=== PATIENT | female | born 2000 | race Caucasian/White ===

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

== ENCOUNTER → 2020-05-04 | Outpatient (CLI) | payer BC ==
--- NOTE | 2020-05-06 23:30 | ECWPNPC ---
PATIENT NAME: ALDO WILSON : 2000 GENDER: FEMALE VISIT DATE: 05/04/2020 DISCHARGE DATE: 05/04/20922 VISIT LOCKED DATE TIME: PHYSICIAN: URMILA SALAZAR RESOURCE: URMILA SALAZAR REASON FOR APPOINTMENT 1. BACK PAIN HISTORY OF PRESENT ILLNESS DEPRESSION SCREENING: PHQ-2 (2015 EDITION) LITTLE INTEREST OR PLEASURE IN DOING THINGS?NOT AT ALL FEELING DOWN, DEPRESSED, OR HOPELESS?NOT AT ALL TOTAL SCORE0 GENERAL: 20-YEAR-OLD FEMALE REFERRED BY [facility], DR. REY, FOR EVALUATION OF CHRONIC LOW BACK PAIN. STATES THIS BEGAN WITHOUT PRECIPITATING EVENT IN 11TH GRADE APPROXIMATELY 4 YEARS AGO. STATES SHE BENT OVER TO TIE HER SHOES AND SHE COULD NOT STRAIGHTEN BACK UP. X-RAY IMAGING DONE AT THAT TIME SHOWED SPONDYLOLISTHESIS AT L5-S1 LEVEL. SHE WAS SENT TO THERAPY AND REFERRED TO NEUROSURGERY. STATES THEY TRIED A FEW INJECTIONS 4 YEARS AGO WITHOUT IMPROVEMENT. PAIN IS DESCRIBED CONSTANT AND ACHING. PAIN IS AGGRAVATED BY FLEXING THE SPINE OR PROLONGED WALKING. DENIES BOWEL OR BLADDER INCONTINENCE. NO RECENT ILLNESS OR SUDDEN WEIGHT LOSS. - - -. FALL RISK SCREENING: SCREENING :NO FALLS REPORTED IN THE LAST YEAR PAIN SCREENING: PATIENT HAS A COMPLAINT OF ACUTE OR CHRONIC PAIN :YES LOCATION OF PAIN:LOW BACK, LEFT HIP, RIGHT HIP INTENSITY OF PAIN (SCALE OF 1 TO 10):6 WHAT DOES YOUR PAIN FEEL LIKE:SHARP, STABBING DURATION:CONTINOUS, CONSTANT PAIN IS INCREASED BY:ACTIVITIES PAIN IS DECREASED BY:OTHERS NOTHING TREATMENT/MEDICATIONS USED TO MANAGE PAIN:OTC PAIN RELIEVERS LEVEL OF RELIEF FROM PAIN TREATMENTS IN THE PAST:0% PAIN HAS INTERFERED WITH THE FOLLOWING: NO NURSING NOTE: - - -. PAIN CENTER INTAKE QUESTIONS: DO YOU HAVE A HISTORY OF MRSA? :NO DO YOU TAKE A BLOOD THINNERS? :NO DO YOU HAVE ANY BLEEDING DISORDERS? :NO ANY NEW NUMBNESS OR WEAKNESS IN YOUR LEGS OR ARMS? :NO ANY PACEMAKER,DEFIBRILLATOR, OR DORSAL COLUMN STIMULATOR? :NO DO YOU HAVE ANY RASHES OR OPEN SORES? :NO ARE YOU ALLERGIC TO IV DYE? :NO ARE YOU DIABETIC? :NO ANY NEW PROBLEMS WITH YOUR MEDICATIONS? :NO HAVE YOU RECEIVED A VACCINE IN THE PAST 30 DAYS? :NO DO YOU PLAN TO RECEIVE A VACCINE IN THE NEXT 21 DAYS? :NO DO YOU NEED ANY PRESCRIPTION? :NO DO YOU TAKE ANY IMMUNOSUPPRESSIVE MEDICATIONS? :NO CURRENT MEDICATIONS TAKING CONCERTA 54 MG TABLET EXTENDED RELEASE 1 TABLET IN THE MORNING ORALLY ONCE A DAY TAKING EPINEPHRINE HCL (ANAPHYLAXIS) MEDICATION LIST REVIEWED AND RECONCILED WITH THE PATIENT PAST MEDICAL HISTORY ADHD ALLERGIES SULFA (FOR ALLERGY USE ONLY): HIVES - ALLERGY PENICILLIN (FOR ALLERGIES USE ONLY): HIVES - ALLERGY BEES: ANAPHYLAXIS - ALLERGY SURGICAL HISTORY WISDOM TEETH PULLED FAMILY HISTORY FATHER: ALIVE MOTHER: ALIVE 1 BROTHER(S) . SOCIAL HISTORY GENERAL: TOBACCO USE ARE YOU A:NONSMOKER LATEX QUESTIONNAIRE LATEX ALLERGY : HAVE YOU EVER DEVELOPED ANY TYPE OF REACTION DURING OR AFTER DENTAL APPOINTMENT, VAGINAL/RECTAL EXAMINATION, SURGICAL PROCEDURE, OR ANY OTHER EXPOSURE?NO LATEX RISK : HAVE YOU EVER HAD ANY DIFFICULTY BREATHING OR HIVES AFTER EATING OR HANDLING ANY FRUITS, OR VEGETABLES; SUCH KIWI, BANANAS, STONE FRUITS, OR CHESTNUTSNO LATEX RISK : DO YOU HAVE A PREVIOUS PERSONAL HISTORY OF MORE THAN NINE SURGERIES, SPINA BIFIDA, OR REPEATED CATHERIZATIONS? NO LATEX RISK : ARE YOU FREQUENTLY EXPOSED TO LATEX PRODUCTS IN YOUR OCCUPATION?NO DATE ASKED : 05/04/2020 ALCOHOL SCREENING DID YOU HAVE A DRINK CONTAINING ALCOHOL IN THE PAST YEAR?YES HOW OFTEN DID YOU HAVE A DRINK CONTAINING ALCOHOL IN THE PAST YEAR?MONTHLY OR LESS (1 POINT) HOW MANY DRINKS DID YOU HAVE ON A TYPICAL DAY WHEN YOU WERE DRINKING IN THE PAST YEAR?1 OR 2 (0 POINTS) HOW OFTEN DID YOU HAVE SIX OR MORE DRINKS ON ONE OCCASION IN THE PAST YEAR?NEVER (0 POINTS) POINTS1 INTERPRETATIONNEGATIVE RECREATIONAL DRUG USE DRUG USE?NO LANGUAGE LANGUAGES SPOKEN:MONGOLIAN LEARNING BARRIERS / SPECIAL NEEDS BARRIERS TO LEARNING?NO HEARING IMPAIRED?NO VISION IMPAIRED?NO COGNITIVELY IMPAIRED?NO READINESS TO LEARN?YES LEARNING PREFERENCES?NO LEARNING CAPABILITIES PRESENT?YES EMOTIONAL BARRIERS?NO SPECIAL DEVICES?NO DOMESTIC VIOLENCE DO YOU FEEL SAFE IN YOUR ENVIRONMENT?YES PAIN CLINIC PFS, CLERGY, PUBLIC HEALTH REFERRALS HAS THE PATIENT BEEN EDUCATED REGARDING HIS/HER PLAN OF CARE?YES HAS THE PATIENT BEEN EDUCATED REGARDING PAIN, THE RISK FOR PAIN, THE IMPORTANCE OF EFFECTIVE PAIN MANAGEMENT, AND THE PAIN ASSESSMENT PROCESS?YES ADVANCE DIRECTIVE ADVANCE DIRECTIVE DISCUSSED WITH PATIENT:YES NO, DECLINED HOSPITALIZATION/MAJOR DIAGNOSTIC PROCEDURE NO HOSPITALIZATION HISTORY. REVIEW OF SYSTEMS CONSTITUTIONAL: ANY RECENT FEVER NO . CHILLS NO . WEIGHT CHANGE OF UNKNOWN REASONS NO . GASTROENTEROLOGY: NEW UNEXPLAINABLE CHANGES IN BOWEL CONTROL NO . CONSTIPATION NO . GENITOURINARY: ANY NEW CHANGE IN BLADDER CONTROL? NO . NEUROLOGY: NEW ONSET DIZZINESS OR NEUROLOGICAL CHANGES NOT MENTIONED NO . NEW NUMBNESS OR PAIN PATTERNS NOT MENTIONED AND PERTINENT TO TODAY'S VISIT NO . CARDIOLOGY: NEW CHEST PRESSURE NO . NEW CHEST PAIN NO . RESPIRATORY: UNEXPLAINABLE COUGH NO . NEW SHORTNESS OF BREATH NO . VITAL SIGNS WT 200.2 LBS, HT 65 IN, BMI 33.31 INDEX, BP 120/57 MM HG, HR 73 /MIN, RR 16 /MIN, TEMP 96.4 F, OXYGEN SAT % 99%, SAFE IN ENV? (Y/N) Y, NA INITIALS SD 08:34, REVIEWED BY: JORGE. EXAMINATION GENERAL EXAMINATION: GENERALNO ACUTE DISTRESS, WELL NOURISHED AND HYDRATED. PSYCHAPPROPRIATE MOOD AND AFFECT . FACE:UNREMARKABLE. NECK:NO LYMPHADENOPATHY, SUPPLE, . LUNGS:CLEAR TO AUSCULTATION BILATERALLY, NO WHEEZES, RHONCHI, RALES. HEART:NO MURMURS, REGULAR RATE AND RHYTHM. MUSCULOSKELETAL:NORMAL RANGE OF MOTION. REPORTS INCREASED PAIN WITH EXTENSION OF SPINE.. 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 IT IS NOT A COPY OF THE [employer] PROGRESS NOTE. MTDD
== END ==
LOC: M PAIN 08:30
PROVIDERS: ATTEND Nurse Practitioner Family
DX: M43.17 Spondylolisthesis, lumbosacral region (principal); G89.29 Other chronic pain; F90.9 Attention-deficit hyperactivity disorder, unspecified type; Z88.0 Allergy status to penicillin; Z88.2 Allergy status to sulfonamides; Z91.030 Bee allergy status; Z79.899 Other long term (current) drug therapy

== ENCOUNTER 2021-04-23 11:39 | Emergency (ER) | payer BC ==
[~2021-04-23] VITALS: Ht 165.1 cm; Wt 96.2 kg
--- OUTSIDE RECORDS SUMMARY | 2021-04-23 11:49 | CCD ---
Author Author [facility] Organization [facility] Address Unknown Phone Unavailable Care Team Providers Care Tube Turner Name Role Phone MARC COBB MD Unavailable Unavailable MARC COBB MD Unavailable Unavailable MARC COBB MD Unavailable Unavailable MARC COBB MD Unavailable Unavailable MARC COBB MD Unavailable Unavailable MARC COBB MD Unavailable Unavailable MARC COBB MD Unavailable Unavailable MARC COBB MD Unavailable Unavailable MARC COBB MD Unavailable Unavailable MARC COBB MD Unavailable Unavailable MARC COBB MD Unavailable Unavailable MARC COBB MD Unavailable Unavailable MARC COBB MD Unavailable Unavailable MARC COBB MD Unavailable Unavailable MARC COBB MD Unavailable Unavailable MARC COBB MD Unavailable Unavailable MARC COBB MD Unavailable Unavailable MARC COBB MD Unavailable Unavailable MARC COBB MD Unavailable Unavailable MARC COBB MD Unavailable Unavailable MARC COBB MD Unavailable Unavailable MARC COBB MD Unavailable Unavailable MARC COBB MD Unavailable Unavailable MARC COBB MD Unavailable Unavailable MARC COBB MD Unavailable Unavailable MARC COBB MD Unavailable Unavailable MARC COBB MD Unavailable Unavailable CHROSTOWSKI, MARC MD Unavailable Unavailable CHROSTOWSKI, MARC MD Unavailable Unavailable CHROSTOWSKIPAULIEZ MD Unavailable Unavailable CHROSTOWSKI, MARC MD Unavailable Unavailable CHROSTOWSKI, MARC MD Unavailable Unavailable CHROSTOWSKI, MARC MD Unavailable Unavailable CHROSTOWSKI, MARC MD Unavailable Unavailable CHROSTOWSKI, MARC MD Unavailable Unavailable CHROSTOWSKI, MARC MD Unavailable Unavailable CHROSTOWSKI, MARC MD Unavailable Unavailable CHROSTOWSKI, MARC MD Unavailable Unavailable CHROSTOWSKI, MARC MD Unavailable Unavailable Stuck, K Adry PA Unavailable Unavailable Stuck, K Adry PA Unavailable Unavailable Stuck, K Adry PA Unavailable Unavailable Stuck, K Adry PA Unavailable Unavailable Stuck, K Adry PA Unavailable Unavailable Stuck, K Adry PA Unavailable Unavailable Stuck, K Adry PA Unavailable Unavailable Stuck, K Adry PA Unavailable Unavailable Stuck, K Adry PA Unavailable Unavailable Stuck, K Adry PA Unavailable Unavailable Stuck, K Adry PA Unavailable Unavailable Stuck, K Adry PA Unavailable Unavailable Stuck, K Adry PA Unavailable Unavailable Stuck, K Adry PA Unavailable Unavailable Stuck, K Adry PA Unavailable Unavailable Stuck, K Adry PA Unavailable Unavailable Stuck, K Adry PA Unavailable Unavailable Stuck, K Adry PA Unavailable Unavailable Stuck, K Adry PA Unavailable Unavailable Stuck, K Adry PA Unavailable Unavailable Stuck, K Adry PA Unavailable Unavailable Stuck, K Adry PA Unavailable Unavailable Stuck, K Adry PA Unavailable Unavailable Stuck, K Adry PA Unavailable Unavailable Stuck, K Adry PA Unavailable Unavailable Stuck, K Adry PA Unavailable Unavailable Stuck, K Adry PA Unavailable Unavailable Stuck, K Adry PA Unavailable Unavailable Stuck, K Adry PA Unavailable Unavailable Stuck, K Adry PA Unavailable Unavailable Stuck, K Adry PA Unavailable Unavailable Stuck, K Adry PA Unavailable Unavailable Stuck, K Adry PA Unavailable Unavailable Stuck, K Adry PA Unavailable Unavailable Stuck, K Adry PA Unavailable Unavailable Stuck, K Adry PA Unavailable Unavailable Stuck, K Adry PA Unavailable Unavailable Stuck, K Adry PA Unavailable Unavailable Stuck, K Adry PA Unavailable Unavailable Stuck, K Adry PA Unavailable Unavailable Stuck, K Adry PA Unavailable Unavailable Stuck, K Adry PA Unavailable Unavailable Sandor SAGE MICROELECTRONICS TECHNICIAN Unavailable Unavailable LAROCK, J CHIQUITA MICROELECTRONICS TECHNICIAN Unavailable Unavailable LAROCK, J CHIQUITA MICROELECTRONICS TECHNICIAN Unavailable Unavailable LAROCK, J CHIQUITA MICROELECTRONICS TECHNICIAN Unavailable Unavailable LAROCK, J CHIQUITA MICROELECTRONICS TECHNICIAN Unavailable Unavailable LAROCK, J CHIQUITA MICROELECTRONICS TECHNICIAN Unavailable Unavailable LAROCK, J CHIQUITA MICROELECTRONICS TECHNICIAN Unavailable Unavailable LAROCK, J CHIQUITA MICROELECTRONICS TECHNICIAN Unavailable Unavailable LAROCK, J CHIQUITA MICROELECTRONICS TECHNICIAN Unavailable Unavailable LAROCK, J CHIQUITA MICROELECTRONICS TECHNICIAN Unavailable Unavailable LAROCK, J CHIQUITA MICROELECTRONICS TECHNICIAN Unavailable Unavailable LAROCK, J CHIQUITA MICROELECTRONICS TECHNICIAN Unavailable Unavailable LAROCK, J CHIQUITA MICROELECTRONICS TECHNICIAN Unavailable Unavailable LAROCK, J CHIQUITA MICROELECTRONICS TECHNICIAN Unavailable Unavailable LAROCK, J CHIQUITA MICROELECTRONICS TECHNICIAN Unavailable Unavailable LAROCK, J CHIQUITA MICROELECTRONICS TECHNICIAN Unavailable Unavailable LAROCK, J CHIQUITA MICROELECTRONICS TECHNICIAN Unavailable Unavailable LAROCK, J CHIQUITA MICROELECTRONICS TECHNICIAN Unavailable Unavailable LAROCK, J CHIQUITA MICROELECTRONICS TECHNICIAN Unavailable Unavailable LAROCK, J CHIQUITA MICROELECTRONICS TECHNICIAN Unavailable Unavailable LAROCK, J CHIQUITA MICROELECTRONICS TECHNICIAN Unavailable Unavailable LAROCK, J CHIQUITA MICROELECTRONICS TECHNICIAN Unavailable Unavailable Maria C Germán Torrez, L RECONDITIONING ASSOCIATE-C RECONDITIONING ASSOCIATE Unavailable Unavailable Maria C L Lore, L RECONDITIONING ASSOCIATE-C RECONDITIONING ASSOCIATE Unavailable Unavailable DASHA, A EDDIE PA Unavailable Unavailable DASHA, A EDDIE PA Unavailable Unavailable DASHA, A EDDIE PA Unavailable Unavailable DASHA, A EDDIE PA Unavailable Unavailable DASHA, A EDDIE PA Unavailable Unavailable DASHA, A EDDIE PA Unavailable Unavailable DASHA, A EDDIE PA Unavailable Unavailable DASHA, A EDDIE PA Unavailable Unavailable DASHA, A EDDIE PA Unavailable Unavailable DASHA, A EDDIE PA Unavailable Unavailable DASHA, A EDDIE PA Unavailable Unavailable DASHA, A EDDIE PA Unavailable Unavailable DASHA, A EDDIE PA Unavailable Unavailable Pugh, M Cirilo PA Unavailable Unavailable Pugh, M Cirilo PA Unavailable Unavailable Pugh, M Cirilo PA Unavailable Unavailable Pugh, M Cirilo PA Unavailable Unavailable Pugh, M Cirilo PA Unavailable Unavailable Pugh, M Cirilo PA Unavailable Unavailable Pugh, M Cirilo PA Unavailable Unavailable Pugh, M Cirilo PA Unavailable Unavailable Pugh, M Cirilo PA Unavailable Unavailable Pugh, M Cirilo PA Unavailable Unavailable Pugh, M Cirilo PA Unavailable Unavailable Pugh, M Cirilo PA Unavailable Unavailable Pugh, M Cirilo PA Unavailable Unavailable Pugh, M Cirilo PA Unavailable Unavailable Pugh, M Cirilo PA Unavailable Unavailable Pugh, M Cirilo PA Unavailable Unavailable Pugh, M Cirilo PA Unavailable Unavailable Pugh, M Cirilo PA Unavailable Unavailable Pugh, M Cirilo PA Unavailable Unavailable Pugh, M Cirilo PA Unavailable Unavailable Pugh, M Cirilo PA Unavailable Unavailable Pugh, M Cirilo PA Unavailable Unavailable Pugh, M Cirilo PA Unavailable Unavailable Pugh, M Cirilo PA Unavailable Unavailable Pugh, M Cirilo PA Unavailable Unavailable Pugh, M Cirilo PA Unavailable Unavailable Pugh, M Cirilo PA Unavailable Unavailable Pugh, M Cirilo PA Unavailable Unavailable Pugh, M Cirilo PA Unavailable Unavailable Pugh, M Cirilo PA Unavailable Unavailable Pugh, M Cirilo PA Unavailable Unavailable Pugh, M Cirilo PA Unavailable Unavailable Pugh, M Cirilo PA Unavailable Unavailable Pugh, M Cirilo PA Unavailable Unavailable Pugh, M Cirilo PA Unavailable Unavailable Pugh, M Cirilo PA Unavailable Unavailable Pugh, M Cirilo PA Unavailable Unavailable Pugh, M Cirilo PA Unavailable Unavailable Pugh, M Cirilo PA Unavailable Unavailable Pugh, M Cirilo PA Unavailable Unavailable Pugh, M Cirilo PA Unavailable Unavailable Pugh, M Cirilo PA Unavailable Unavailable Pugh, M Cirilo PA Unavailable Unavailable Pugh, M Cirilo PA Unavailable Unavailable Pugh, M Cirilo PA Unavailable Unavailable Pugh, M Cirilo PA Unavailable Unavailable Pugh, M Cirilo PA Unavailable Unavailable Pugh, M Cirilo PA Unavailable Unavailable Pugh, M Cirilo PA Unavailable Unavailable EDDIE CRAWFORD Unavailable Unavailable Luis Morley, F RECONDITIONING ASSOCIATE RECONDITIONING ASSOCIATE Unavailable Unavailable Luis Morley F RECONDITIONING ASSOCIATE RECONDITIONING ASSOCIATE Unavailable Unavailable Germán Pugh MD Unavailable Unavailable Germán Pugh MD Unavailable Unavailable Germán Pugh MD Unavailable Unavailable Germán Pugh MD Unavailable Unavailable Germán Pugh MD Unavailable Unavailable Germán Pugh MD Unavailable Unavailable Germán Pugh MD Unavailable Unavailable Germán Pugh MD Unavailable Unavailable Germán Pugh MD Unavailable Unavailable Germán Pugh MD Unavailable Unavailable Germán Pugh MD Unavailable Unavailable Rabbia, C Flor Unavailable Unavailable Rabbia, C Flor Unavailable Unavailable Rabbia, C Flor Unavailable Unavailable SWINWOOD, MARIA C MICROELECTRONICS TECHNICIAN Unavailable Unavailable SWINWOOD, MARIA C MICROELECTRONICS TECHNICIAN Unavailable Unavailable SWINWOOD, MARIA C MICROELECTRONICS TECHNICIAN Unavailable Unavailable SWINWOOD, MARIA C MICROELECTRONICS TECHNICIAN Unavailable Unavailable SWINWOOD, MARIA C MICROELECTRONICS TECHNICIAN Unavailable Unavailable SWINWOOD, MARIA C MICROELECTRONICS TECHNICIAN Unavailable Unavailable SWINWOOD, MARIA C MICROELECTRONICS TECHNICIAN Unavailable Unavailable SWINWOOD, MARIA C MICROELECTRONICS TECHNICIAN Unavailable Unavailable SWINWOOD, MARIA C MICROELECTRONICS TECHNICIAN Unavailable Unavailable SWINWOOD, MARIA C MICROELECTRONICS TECHNICIAN Unavailable Unavailable SWINWOOD, MARIA C MICROELECTRONICS TECHNICIAN Unavailable Unavailable SWINWOOD, MARIA C MICROELECTRONICS TECHNICIAN Unavailable Unavailable SWINWOOD, MARIA C MICROELECTRONICS TECHNICIAN Unavailable Unavailable SWINWOOD, MARIA C MICROELECTRONICS TECHNICIAN Unavailable Unavailable SWINWOOD, MARIA C MICROELECTRONICS TECHNICIAN Unavailable Unavailable SWINWOOD, MARIA C MICROELECTRONICS TECHNICIAN Unavailable Unavailable SWINWOOD, MARIA C MICROELECTRONICS TECHNICIAN Unavailable Unavailable SWINWOOD, MARIA C MICROELECTRONICS TECHNICIAN Unavailable Unavailable SWINWOOD, MARIA C MICROELECTRONICS TECHNICIAN Unavailable Unavailable SWINWOOD, MARIA C MICROELECTRONICS TECHNICIAN Unavailable Unavailable SWINWOOD, MARIA C MICROELECTRONICS TECHNICIAN Unavailable Unavailable MARAVEGIAS, N PAYAL NEWMAN Unavailable Unavailable MARAVEGIAS, N PAYAL NEWMAN Unavailable Unavailable MARAVEGIAS, Con MOE MD Unavailable Unavailable MARAVEGIAS, Con MOE MD Unavailable Unavailable MARAVEGIAS, N PAYAL NEWMAN Unavailable Unavailable MARAVEGIAS, N PAYAL NEWMAN Unavailable Unavailable MARAVEGIAS, N PAYAL NEWMAN Unavailable Unavailable MARAVEGIAS, N PAYAL NEWMAN Unavailable Unavailable MARAVEGIAS, N PAYAL NEWMAN Unavailable Unavailable MARAVEGIAS, N PAYAL NEWMAN Unavailable Unavailable MARAVEGIAS, N PAYAL NEWMAN Unavailable Unavailable MARAVEGIAS, N PAYAL NEWMAN Unavailable Unavailable MARAVEGIAS, Con MOE MD Unavailable Unavailable MARAVEGIAS, Con MOE MD Unavailable Unavailable Fish, B Sandeep NEWMAN Unavailable Unavailable Fish, B Sandeep NEWMAN Unavailable Unavailable Fish, B Sandeep NEWMAN Unavailable Unavailable Fish, B Sandeep NEWMAN Unavailable Unavailable Fish, B Sandeep NEWMAN Unavailable Unavailable Fish, B Sandeep NEWMAN Unavailable Unavailable Fish, B Sandeep NEWMAN Unavailable Unavailable Fish, B Sandeep NEWMAN Unavailable Unavailable Fish, B Sandeep NEWMAN Unavailable Unavailable Fish, B Sandeep NEWMAN Unavailable Unavailable Fish, B Sandeep NEWMNA Unavailable Unavailable Fish, B Sandeep NEWMAN Unavailable Unavailable Fish, B Sandeep NEWMAN Unavailable Unavailable Fish, B Sandeep NEWMAN Unavailable Unavailable Fish, B Sandeep NEWMAN Unavailable Unavailable Fish, B Sandeep NEWMAN Unavailable Unavailable Fish, B Sandeep NEWMAN Unavailable Unavailable Fish, B Sandeep NEWMAN Unavailable Unavailable Fish, B Sandeep NEWMAN Unavailable Unavailable Fish, B Sandeep NEWMAN Unavailable Unavailable Fish, B Sandeep NEWMAN Unavailable Unavailable Fish, B Sandeep NEWMAN Unavailable Unavailable Fish, B Sandeep NEWMAN Unavailable Unavailable Fish, B Sandeep NEWMAN Unavailable Unavailable Fish, B Sandeep NEWMAN Unavailable Unavailable Fish, B Sandeep NEWMAN Unavailable Unavailable Fish, B Sandeep NEWMAN Unavailable Unavailable Fish, B Sandeep NEWMAN Unavailable Unavailable Fish, B Sandeep NEWMAN Unavailable Unavailable Fish, B Sandeep NEWMAN Unavailable Unavailable Fish, B Sandeep NEWMAN Unavailable Unavailable Fish, B Sandeep NEWMAN Unavailable Unavailable Fish, B Sandeep NEWMAN Unavailable Unavailable Fish, B Sandeep NEWMAN Unavailable Unavailable Fish, B Sandeep NEWMAN Unavailable Unavailable Fish, B Sandeep NEWMAN Unavailable Unavailable Fish, B Sandeep NEWMAN Unavailable Unavailable Fish, B Sandeep NEWMAN Unavailable Unavailable Fish, B Sandeep NEWMAN Unavailable Unavailable Fish, Mumtaz Hopkins MD Unavailable Unavailable Fish, Mumtaz Hopkins MD Unavailable Unavailable Fish, Mumtaz Hopkins MD Unavailable Unavailable Fish, Mumtaz Hopkins MD Unavailable Unavailable Fish, Mumtaz Hopkins MD Unavailable Unavailable Fish, Mumtaz Hopkins MD Unavailable Unavailable Fish, Mumtaz Hopkins MD Unavailable Unavailable Fish, Mumtaz Hopkins MD Unavailable Unavailable Fish, Mumtaz Hopkins MD Unavailable Unavailable Fish, Mumtaz Hopkins MD Unavailable Unavailable Fish, Mumtaz Hopkins MD Unavailable Unavailable Fish, Mumtaz Hopkins MD Unavailable Unavailable Fish, Mumtaz Hopkins MD Unavailable Unavailable Fish, Mumtaz Hopkins MD Unavailable Unavailable Fish, Mumtaz Hopkins MD Unavailable Unavailable Fish, Mumtaz Hopkins MD Unavailable Unavailable Fish, Mumtaz Hopkins MD Unavailable Unavailable GALGANO, EDDIE NEWMAN Unavailable Unavailable GALGANO, EDDIE NEWMAN Unavailable Unavailable GALGANO, EDDIE NEWMAN Unavailable Unavailable GALGANO, EDDIE NEWMAN Unavailable Unavailable GALGANO, EDDIE NEWMAN Unavailable Unavailable GALGANO, EDDIE NEWMAN Unavailable Unavailable GALGANO, EDDIE NEWMAN Unavailable Unavailable GALGANO, EDDIE NEWMAN Unavailable Unavailable GALGANO, EDDIE NEWMAN Unavailable Unavailable GALGANO, EDDIE NEWMAN Unavailable Unavailable GALGANO, EDDEI NEWMAN Unavailable Unavailable GALGANO, EDDIE NEWMAN Unavailable Unavailable GALGANO, EDDIE NEWMAN Unavailable Unavailable GALGANO, EDDIE NEWMAN Unavailable Unavailable GALGANO, EDDIE NEWMAN Unavailable Unavailable GALGANO, EDDIE NEWMAN Unavailable Unavailable GALGANO, EDDIE NEWMAN Unavailable Unavailable GALGANO, EDDIE NEWMAN Unavailable Unavailable GALGANO, EDDIE NEWMAN Unavailable Unavailable GALGANO, EDDIE NEWMAN Unavailable Unavailable GALGANO, EDDIE NEWMAN Unavailable Unavailable GALGANO, EDDIE NEWMAN Unavailable Unavailable GALGANO, EDDIE NEWMAN Unavailable Unavailable GALGANO, EDDIE NEWMAN Unavailable Unavailable GALGANO, EDDIE NEWMAN Unavailable Unavailable GALGANO, EDDIE NEWMAN Unavailable Unavailable GALGANO, EDDIE NEWMAN Unavailable Unavailable GALGANO, EDDIE NEWMAN Unavailable Unavailable GALGANO, EDDIE NEWMAN Unavailable Unavailable GALGANO, EDDIE NEWMAN Unavailable Unavailable GALGANO, EDDIE NEWMAN Unavailable Unavailable GALGANO, EDDIE NEWMAN Unavailable Unavailable GALGANO, EDDIE NEWMAN Unavailable Unavailable GALGANO, EDDIE NEWMAN Unavailable Unavailable GALGANO, EDDIE NEWMAN Unavailable Unavailable GALGANO, EDDIE NEWMAN Unavailable Unavailable GALGANO, EDDIE NEWMAN Unavailable Unavailable GALGANO, EDDIE NEWMAN Unavailable Unavailable GALGANO, EDDIE NEWMAN Unavailable Unavailable GALGANO, EDDIE NEWMAN Unavailable Unavailable Tougaloo, F Ant PA Unavailable Unavailable Tougaloo, F Ant PA Unavailable Unavailable Rosamaria, F Ant PA Unavailable Unavailable Rosamaria, F Ant PA Unavailable Unavailable Rosamaria, F Ant PA Unavailable Unavailable Tougaloo, F Nat PA Unavailable Unavailable Rosamaria, F Ant PA Unavailable Unavailable Rosamaria, F Ant PA Unavailable Unavailable Tougaloo, F Ant PA Unavailable Unavailable Rosamaria, F Ant PA Unavailable Unavailable TATONE, DOMINIQUE PA Unavailable Unavailable TATONE, DOMINIQUE PA Unavailable Unavailable TATONE, DOMINIQUE PA Unavailable Unavailable TATONE, DOMINIQUE PA Unavailable Unavailable TATONE, DOMINIQUE PA Unavailable Unavailable TATONE, DOMINIQUE PA Unavailable Unavailable TATONE, DOMINIQUE PA Unavailable Unavailable TATONE, DOMINIQUE PA Unavailable Unavailable TATONE, DOMINIQUE PA Unavailable Unavailable TATONE, DOMINIQUE PA Unavailable Unavailable TATONE, DOMINIQUE PA Unavailable Unavailable TATONE, DOMINIQUE PA Unavailable Unavailable TATONE, DOMINIQUE PA Unavailable Unavailable TATONE, DOMINIQUE PA Unavailable Unavailable TATONE, DOMINIQUE PA Unavailable Unavailable TATONE, DOMINIQUE PA Unavailable Unavailable TATONE, DOMINIQUE PA Unavailable Unavailable TATONE, DOMINIQUE PA Unavailable Unavailable TATONE, DOMINIQUE PA Unavailable Unavailable TATONE, DOMINIQUE PA Unavailable Unavailable TATONE, DOMINIQUE PA Unavailable Unavailable TATONE, DOMINIQUE PA Unavailable Unavailable TATONE, DOMINIQUE PA Unavailable Unavailable TATONE, DOMINIQUE PA Unavailable Unavailable MCELHERAN, EDDIE PA Unavailable Unavailable MCELHERAN, EDDIE PA Unavailable Unavailable MCELHERAN, EDDIE PA Unavailable Unavailable MCELHERAN, EDDIE PA Unavailable Unavailable MCELHERAN, EDDIE PA Unavailable Unavailable MCELHERAN, EDDIE PA Unavailable Unavailable MCELHERAN, EDDIE PA Unavailable Unavailable MCELHERAN, EDDIE PA Unavailable Unavailable MCELHERAN, EDDIE PA Unavailable Unavailable MCELHERAN, EDDIE PA Unavailable Unavailable MCELHERAN, EDDIE PA Unavailable Unavailable MCELHERAN, EDDIE PA Unavailable Unavailable MCELHERAN, EDDIE PA Unavailable Unavailable MCELHERAN, EDDIE PA Unavailable Unavailable MCELHERAN, EDDIE PA Unavailable Unavailable MCELHERAN, EDDIE PA Unavailable Unavailable MCELHERAN, EDDIE PA Unavailable Unavailable MCELHERAN, EDDIE PA Unavailable Unavailable MCELHERAN, EDDIE PA Unavailable Unavailable MCELHERAN, EDDIE PA Unavailable Unavailable MCELHERAN, EDDIE PA Unavailable Unavailable MCELHERAN, EDDIE PA Unavailable Unavailable MCELHERAN, EDDIE PA Unavailable Unavailable MCELHERAN, EDDIE PA Unavailable Unavailable MCELHERAN, EDDIE PA Unavailable Unavailable MCELHERAN, EDDIE PA Unavailable Unavailable MCELHERAN, EDDIE PA Unavailable Unavailable MCELHERAN, EDDIE PA Unavailable Unavailable MCELHERAN, EDDIE PA Unavailable Unavailable ZEBill MENENDEZ RECONDITIONING ASSOCIATE Unavailable Unavailable ZEGIGermán, Bill MUNSON RECONDITIONING ASSOCIATE Unavailable Unavailable ZEGIL, Bill JEIMY RECONDITIONING ASSOCIATE Unavailable Unavailable Elisabeth, L Lucila PA Unavailable Unavailable Elisabeth, L Lucila PA Unavailable Unavailable Elisabeth, L Lucila PA Unavailable Unavailable Elisabeth, L Lucila PA Unavailable Unavailable Elisabeth, L Lucila PA Unavailable Unavailable Elisabeth, L Lucila PA Unavailable Unavailable Elisabeth, L Lucila PA Unavailable Unavailable Elisabeth, L Lucila PA Unavailable Unavailable Elisabeth, L Lucila PA Unavailable Unavailable Elisabeth, L Lucila PA Unavailable Unavailable Elisabeth, L Lucila PA Unavailable Unavailable Elisabeth, L Lucila PA Unavailable Unavailable Elisabeth, L Lucila PA Unavailable Unavailable Elisabeth, L Lucila PA Unavailable Unavailable Elisabeth, L Lucila PA Unavailable Unavailable Elisabeth, L Lucila PA Unavailable Unavailable Elisabeth, L Lucila PA Unavailable Unavailable Elisabeth, L Lucila PA Unavailable Unavailable Elisabeth, L Lucila PA Unavailable Unavailable Elisabeth, L Lucila PA Unavailable Unavailable Elisabeth, L Lucila PA Unavailable Unavailable Elisabeth, L Lucila PA Unavailable Unavailable Elisabeth, L Lucila PA Unavailable Unavailable Elisabeth, L Lucila PA Unavailable Unavailable Elisabeth, L Lucila PA Unavailable Unavailable Elisabeth, L Lucila PA Unavailable Unavailable Elisabeth, L Lucila PA Unavailable Unavailable Elisabeth, L Lucila PA Unavailable Unavailable Elisabeth, L Lucila PA Unavailable Unavailable Elisabeth, L Lucila PA Unavailable Unavailable Elisabeth, L Lucila PA Unavailable Unavailable Elisabeth, L Lucila PA Unavailable Unavailable Elisabeth, L Lucila PA Unavailable Unavailable Elisabeth, L Lucila PA Unavailable Unavailable Elisabeth, L Lucila PA Unavailable Unavailable Elisabeth, L Lucila PA Unavailable Unavailable Elisabeth, L Lucila PA Unavailable Unavailable Elisabeth, L Lucila PA Unavailable Unavailable Elisabeth, L Lucila PA Unavailable Unavailable Elisabeth, L Lucila PA Unavailable Unavailable Elisabeth, L Lucila PA Unavailable Unavailable MANAV, R ALEKSANDER Unavailable Unavailable ANDERS, G EDWARD RPA Unavailable Unavailable ANDERS, G EDWARD RPA Unavailable Unavailable ANDERS, G EDWARD RPA Unavailable Unavailable ANDERS, G EDWARD RPA Unavailable Unavailable ANDERS, G EDWARD RPA Unavailable Unavailable ANDERS, G EDWARD RPA Unavailable Unavailable ANDERS, G EDWARD RPA Unavailable Unavailable ANDERS, G EDWARD RPA Unavailable Unavailable ANDERS, G EDWARD RPA Unavailable Unavailable ANDERS, G EDWARD RPA Unavailable Unavailable ANDERS, G EDWARD RPA Unavailable Unavailable ANDERS, G EDWARD RPA Unavailable Unavailable ANDERS, G EDWARD RPA Unavailable Unavailable ANDERS, G EDWARD RPA Unavailable Unavailable ANDERS, G EDWARD RPA Unavailable Unavailable ANDERS, G EDWARD RPA Unavailable Unavailable ANDERS, G EDWARD RPA Unavailable Unavailable ANDERS, G EDWARD RPA Unavailable Unavailable ANDERS, G EDWARD RPA Unavailable Unavailable ANDERS, G EDWARD RPA Unavailable Unavailable ANDERS, G EDWARD RPA Unavailable Unavailable ANDERS, G EDWARD RPA Unavailable Unavailable ANDERS, G EDWARD RPA Unavailable Unavailable ANDERS, G EDWARD RPA Unavailable Unavailable ANDERS, G EDWARD RPA Unavailable Unavailable ANDERS, G EDWARD RPA Unavailable Unavailable ANDERS, G EDWARD RPA Unavailable Unavailable ANDERS, G EDWARD RPA Unavailable Unavailable ANDERS, G EDWARD RPA Unavailable Unavailable ANDERS, G EDWARD RPA Unavailable Unavailable ANDERS, G EDWARD RPA Unavailable Unavailable ANDERS, G EDWARD RPA Unavailable Unavailable ANDERS, G EDWARD RPA Unavailable Unavailable ANDERS, G EDWARD RPA Unavailable Unavailable ANDERS, G EDWARD RPA Unavailable Unavailable ANDERS, G EDWARD RPA Unavailable Unavailable ANDRES, G EDWARD RPA Unavailable Unavailable UNKNOWN Unavailable Unavailable Byrd, M Yuliet MICROELECTRONICS TECHNICIAN Unavailable Unavailable Byrd, M Yuliet MICROELECTRONICS TECHNICIAN Unavailable Unavailable Byrd, M Yuliet MICROELECTRONICS TECHNICIAN Unavailable Unavailable Byrd, M Yuliet MICROELECTRONICS TECHNICIAN Unavailable Unavailable Byrd, M Yuliet MICROELECTRONICS TECHNICIAN Unavailable Unavailable Byrd, M Yuliet MICROELECTRONICS TECHNICIAN Unavailable Unavailable Byrd, M Yuliet MICROELECTRONICS TECHNICIAN Unavailable Unavailable Byrd, M Yuliet MICROELECTRONICS TECHNICIAN Unavailable Unavailable Byrd, M Yuliet MICROELECTRONICS TECHNICIAN Unavailable Unavailable Byrd, M Yuliet MICROELECTRONICS TECHNICIAN Unavailable Unavailable Byrd, M Yuliet MICROELECTRONICS TECHNICIAN Unavailable Unavailable Byrd, M Yuliet MICROELECTRONICS TECHNICIAN Unavailable Unavailable Byrd, M Yuliet MICROELECTRONICS TECHNICIAN Unavailable Unavailable Byrd, M Yuliet MICROELECTRONICS TECHNICIAN Unavailable Unavailable Byrd, M Yuliet MICROELECTRONICS TECHNICIAN Unavailable Unavailable Byrd, M Yuliet MICROELECTRONICS TECHNICIAN Unavailable Unavailable Byrd, M Yuliet MICROELECTRONICS TECHNICIAN Unavailable Unavailable Byrd, M Yuliet MICROELECTRONICS TECHNICIAN Unavailable Unavailable Byrd, M Yuliet MICROELECTRONICS TECHNICIAN Unavailable Unavailable Byrd, M Yuliet MICROELECTRONICS TECHNICIAN Unavailable Unavailable Byrd, M Yuliet MICROELECTRONICS TECHNICIAN Unavailable Unavailable Byrd, M Yuliet MICROELECTRONICS TECHNICIAN Unavailable Unavailable Byrd, M Yuliet MICROELECTRONICS TECHNICIAN Unavailable Unavailable Byrd, M Yuliet MICROELECTRONICS TECHNICIAN Unavailable Unavailable Byrd, M Yuliet MICROELECTRONICS TECHNICIAN Unavailable Unavailable Byrd, M Yuliet MICROELECTRONICS TECHNICIAN Unavailable Unavailable Byrd, M Yuliet MICROELECTRONICS TECHNICIAN Unavailable Unavailable Byrd, M Yuliet MICROELECTRONICS TECHNICIAN Unavailable Unavailable Byrd, M Yuliet MICROELECTRONICS TECHNICIAN Unavailable Unavailable Byrd, M Yuliet MICROELECTRONICS TECHNICIAN Unavailable Unavailable Byrd, M Yuliet MICROELECTRONICS TECHNICIAN Unavailable Unavailable Byrd, M Yuliet MICROELECTRONICS TECHNICIAN Unavailable Unavailable BROWN, GERMAN LUIS MICROELECTRONICS TECHNICIAN Unavailable Unavailable BROWN, GERMAN LUIS MICROELECTRONICS TECHNICIAN Unavailable Unavailable BROWN, GERMAN LUIS MICROELECTRONICS TECHNICIAN Unavailable Unavailable BROWN, GERMAN LUIS MICROELECTRONICS TECHNICIAN Unavailable Unavailable BROWN, GERMAN LUIS MICROELECTRONICS TECHNICIAN Unavailable Unavailable BROWN, GERMAN LUIS MICROELECTRONICS TECHNICIAN Unavailable Unavailable BROWN, GERMAN LUIS MICROELECTRONICS TECHNICIAN Unavailable Unavailable BROWN, GERMAN LUIS MICROELECTRONICS TECHNICIAN Unavailable Unavailable BROWN, GERMAN LUIS MICROELECTRONICS TECHNICIAN Unavailable Unavailable BROWN, GERMAN LUIS MICROELECTRONICS TECHNICIAN Unavailable Unavailable BROWN, GERMAN LUIS MICROELECTRONICS TECHNICIAN Unavailable Unavailable BROWN, GERMAN LUIS MICROELECTRONICS TECHNICIAN Unavailable Unavailable BROWN, GERMAN LUIS MICROELECTRONICS TECHNICIAN Unavailable Unavailable BROWN, GERMAN LUIS MICROELECTRONICS TECHNICIAN Unavailable Unavailable BROWN, GERMAN LUIS MICROELECTRONICS TECHNICIAN Unavailable Unavailable BROWN, GERMAN LUIS MICROELECTRONICS TECHNICIAN Unavailable Unavailable BROWN, GERMAN LUIS MICROELECTRONICS TECHNICIAN Unavailable Unavailable BROWN, GERMAN LUIS MICROELECTRONICS TECHNICIAN Unavailable Unavailable BROWN, GERMAN LUIS MICROELECTRONICS TECHNICIAN Unavailable Unavailable BROWN, GERMAN LUIS MICROELECTRONICS TECHNICIAN Unavailable Unavailable BROWN, GERMAN LUIS MICROELECTRONICS TECHNICIAN Unavailable Unavailable BROWN, GERMAN LUIS MICROELECTRONICS TECHNICIAN Unavailable Unavailable BROWN, GERMAN LUIS MICROELECTRONICS TECHNICIAN Unavailable Unavailable BROWN, GERMAN LUIS MICROELECTRONICS TECHNICIAN Unavailable Unavailable BROWN, GERMAN LUIS MICROELECTRONICS TECHNICIAN Unavailable Unavailable BROWN, GERMAN LUIS MICROELECTRONICS TECHNICIAN Unavailable Unavailable BROWN, GERMAN LUIS MICROELECTRONICS TECHNICIAN Unavailable Unavailable BROWN, GERMAN LUIS MICROELECTRONICS TECHNICIAN Unavailable Unavailable BROWN, GERMAN LUIS MICROELECTRONICS TECHNICIAN Unavailable Unavailable BROWN, GERMAN LUIS MICROELECTRONICS TECHNICIAN Unavailable Unavailable BROWN, GERMAN LUIS MICROELECTRONICS TECHNICIAN Unavailable Unavailable BROWN, GERMAN LUIS MICROELECTRONICS TECHNICIAN Unavailable Unavailable BROWN, GERMAN LUIS MICROELECTRONICS TECHNICIAN Unavailable Unavailable BROWN, GERMAN LUIS MICROELECTRONICS TECHNICIAN Unavailable Unavailable BROWN, GERMAN LUIS MICROELECTRONICS TECHNICIAN Unavailable Unavailable BROWN, GERMAN LUIS MICROELECTRONICS TECHNICIAN Unavailable Unavailable BROWN, GERMAN LUIS MICROELECTRONICS TECHNICIAN Unavailable Unavailable BROWN, GERMAN LUIS MICROELECTRONICS TECHNICIAN Unavailable Unavailable Re-disclosure Warning The records that you are about to access may contain information from federally-assisted alcohol or drug abuse programs. If such information is present, then the following federally mandated warning applies: This information has been disclosed to you from records protected by federal confidentiality rules (42 CFR part 2). The federal rules prohibit you from making any further disclosure of this information unless further disclosure is expressly permitted by the written consent of the person to whom it pertains or as otherwise permitted by 42 CFR part 2. A general authorization for the release of medical or other information is NOT sufficient for this purpose. The Federal rules restrict any use of the information to criminally investigate or prosecute any alcohol or drug abuse patient.The records that you are about to access may contain highly sensitive health information, the redisclosure of which is protected by Article 27-F of the [facility] Public Health law. If you continue you may have access to information: Regarding HIV / AIDS; Provided by facilities licensed or operated by the [facility] Office of Mental Health; or Provided by the [facility] Office for People With Developmental Disabilities. If such information is present, then the following [facility] mandated warning applies: This information has been disclosed to you from confidential records which are protected by state law. State law prohibits you from making any further disclosure of this information without the specific written consent of the person to whom it pertains, or as otherwise permitted by law. Any unauthorized further disclosure in violation of state law may result in a fine or mcfp sentence or both. A general authorization for the release of medical or other information is NOT sufficient authorization for further disc losure. Allergies and Adverse Reactions Type Description Substance Reaction Status Data Source(s ) Propensity to adverse reactions PENICILLINS Penicillin Hives [facility] Family History Family Member Name Family Member Gender Family Member Status Date o f Status Description Data Source(s) Unknown Unknown Problem [facility] ([facility] maternal grandmother Encounters Encounter Providers Location Date Indications Data Source(s ) Outpatient 03/27/2021 01:40:11 PM EDT - 021 02:02:07 PM EDT [facility] ([facility]) Outpatient Attender: UNKNOWN CPSCAORT-LABEJN 02/11/2021 07:58:00 PM E DT [facility] Outpatient Attender: Lucila SILVER ED-LABGH 0 02/11/2021 02:46:00 PM EDT - 02/11/2021 02:47:00 PM EDT R1084 [id number] [facility] R1084 F419 [id number] Patient discharged. Outpatient Attender: CHIQUITA SAGE NP 01/11 12:56:43 PM EDT - 02/07/2021 01:53:10 PM EDT [facility] ([facility] ) Outpatient Attender: Cirilo Pugh PAConsultant: EDDIE LAUREN 01/18/2021 10:22:00 AM EDT - 01/18/2021 10:22:00 AM EDT [facility] Outpatient Attender: Adry Hill PAConsultant: EDDIE WHARTON 01/18/2021 09:44:00 AM EDT - 01/18/2021 10:45:00 AM EDT [facility] OFFICE OUTPATIENT VISIT 15 MINUTES Attender: EDDIE SILVER Physical Therapy 01/01/2021 05:15:00 PM EDT [facility] ([facility]) OFFICE OUTPATIENT VISIT 15 MINUTES Attender: EDDIE SILVER Physical Therapy 12/07/2020 05:15:00 PM EDT [facility] ([facility]) Outpatient Attender: Sandeep Hussein MD Physical Therapy 11/23/2020 0 2:45:00 PM EDT [facility] ([facility]) Outpatient Attender: RENA ANDERS RPA 11/17 02:54:30 PM EDT - 11/17/2020 04:06:46 PM EDT [facility] ([facility] ) Outpatient Referrer: EDDIE CRAWFORD MD 10/13/2020 1 2:23:00 PM EDT Spondylolisthesis, lumbosacral region [facility] Spondylolisthesis, lumbosacral region Outpatient Attender: EDDIE CRAWFORD MD [id number] 09/2020 12:00:00 AM EDT - 10/13/2020 01:19:53 PM EDT [facility] Outpatient Attender: SHEILA Torrez FNPAtten veronica: MARIA C TORREZ NP CPSCAORT-CPSCNOBG 10/09/2020 08:50:00 AM EDT - 10/09/2020 08:51:00 AM EDT A74. 9 [facility] A74.9 Patient discharged. Outpatient Attender: EDDIE CRAWFORD MD [id number] 09/01/2020 1 2:00:00 AM EDT Spondylolisthesis, lumbosacral region [facility] Spondylolisthesis, lumbosacral region Inpatient Attender: EDDIE CRAWFORD MDAdmitter: EDDIE LAUREN MD [id number] 08/14/2020 12:00:00 AM EST - 08/15/2020 12:51:00 PM EST Illness, unspecified [facility] Illness, unspecified Patient discharged. Outpatient Attender: EDDIE CRAWFORD MD Attender: ALEKSANDER EMReferrer: EDDIE CRAWFORD MD [id number] 08/10/2020 12:00:00 AM EST Contact with and (suspected) exposure to other viral communicable diseases [facility] Contact with and (suspected) exposure to other viral communicable diseases Outpatient Referrer: EDDIE CRAWFORD MD 08/10/2020 1 2:00:00 AM EST Spondylolysis, site unspecified [facility] Spondylolysis, site unspecified Outpatient Attender: Prerna Pugh MDReferrer: EDDIE Flor MD [id number] 08/10/2020 12:00:00 AM [facility] pretest Outpatient Attender: UNKNOWN CPSCAORT-LABEJN 07/29/2020 07:41:00 PM E [facility] Outpatient Attender: MONTSERRAT Morley FNPAttender: LUIS MORLEY NP ED-LABPNP 07/29/2020 05:36:00 PM EST - 07/29/2020 05:37:00 PM EST 113 [facility] Z113 Patient discharged. Outpatient Attender: LUIS MORLEY NP CPSCAORT-CPSGNOBG 07/13 10:44:00 AM EST - 07/29/2020 10:45:00 AM EST [facility] Patient discharged. Outpatient Attender: EDDIE CRAWFORD MD 07/21/2020 12:00:0 0 AM [facility] Outpatient 06/30/2020 12:00:00 AM [facility] Outpatient Attender: Flor Hill 06/30/2020 12:00:00 AM [facility] Outpatient Attender: EDDIE CRAWFORD MD ED-IMAG 10:31:00 AM EST - 05/27/2020 10:32:00 AM EST M43.00-SPONDYLOLISTHESIS [facility] M43.00-SPONDYLOLISTHESIS Patient discharged. Outpatient Attender: EDDIE CRAWFORD MD [id number] 05/19/2020 1 2:00:00 AM EST Spondylolysis, site unspecified [facility] Spondylolysis, site unspecified Outpatient Attender: Yuliet Byrd NP ED-IMAG 020 09:32:00 AM EST - 05/15/2020 09:33:00 AM EST M43.17 [facility] M43.17 Patient discharged. Unknown [address] [facility] [address] 05/12/2020 12:00:00 AM EST eCW1 ([facility]) Out[place] [address] [facility] [address] 05/04/2020 12:00:00 AM EST eCW1 ([facility]) Outpatient Attender: EDDIE CRAWFORD MD 04/23/2020 12:00:0 0 AM [facility] Outpatient Referrer: EDDIE CRAWFORD MD 04/21/2020 1 0:01:49 AM EST Spondylolysis, site unspecified [facility] Spondylolysis, site unspecified Outpatient Attender: EDDIE CRAWFORD MD [id number] 04/21/2020 12:00:0 0 AM [facility] Outpatient Attender: EDDIE CRAWFORD MD 04/21/2020 12:00:0 0 AM [facility] Outpatient Attender: Lucila SILVER ED-LABPNP 04/14/2020 04:23:00 PM EST EXPOSURE [facility] EXPOSURE Outpatient Attender: Lucila SILVER CPSCAORT-LABEJN 1 06/14/2019 04:23:00 PM EST COVID SCREENING [facility] COVID SCREENING Outpatient Attender: Lucila SILVER ED-LABPNP 0 01/31/2020 10:17:00 AM EDT - 01/31/2020 10:18:00 AM EDT RETURNING STUDENT [facility] RETURNING STUDENT Patient discharged. Outpatient Attender: Lucila SILVER ED-LAB 0 12/02/2019 07:57:00 AM EDT - 12/02/2019 07:58:00 AM EDT [id number] E669 R638 [facility] [id number] [id number] E669 R638 Patient discharged. Emergency Attender: EDDIE SILVER ED-ED 04/05 12:39:00 PM EDT - 04/05/2019 03:25:00 PM EDT FLANK PAIN [facility] FLANK PAIN Patient discharged. Outpatient Attender: Lucila SILVER ED-IMAGH 0 08/28/2018 01:32:00 PM EDT - 08/28/2018 01:33:00 PM EDT [id number] [facility] [id number] Emergency Attender: Ant SILVER ED-ED 09:58:00 AM EDT - 03/31/2017 12:43:00 PM EDT RT SIDED PAIN N/V [facility] RT SIDED PAIN N/V Emergency Attender: JEIMY KENNEDY RECONDITIONING ASSOCIATE ED-ED 02/11 09:34:00 AM EDT - 03/06/2017 10:28:00 AM EDT wrist injury [facility] wrist injury R Attender: DOMINIQUE SILVER ED-PRSPT 09/29 03:12:00 PM EDT - 10/09/2016 12:01:00 AM EDT LOW BACK PAIN [facility] LOW BACK PAIN Outpatient Attender: DOMINIQUE SILVER ED-IMAGH 09/21 08:27:00 AM EDT - 09/21/2016 08:28:00 AM EDT LUMBAGO, SCIAITCA, ABNORMAL XRAY [facility] LUMBAGO, SCIAITCA, ABNORMAL XRAY Outpatient Attender: DOMINIQUE SILVER ED-IMAGH 09/15 09:07:00 AM EDT - 09/15/2016 09:08:00 AM EDT M54.6 [facility] M54.6 Outpatient Attender: MARC COBB MD ED-LAB 06/03/2016 09:17:00 AM EST - 06/03/2016 09:18:00 AM EST SCREENING [facility] SCREENING Emergency Attender: PAYAL VARGAS MD ED-ED 1 06/27/2015 03:42:00 PM EST - 04/27/2016 04:26:00 PM EST R HAND INJURY [facility] R HAND INJURY Outpatient Attender: DOMINIQUE SILVER ED-LAB 04/02 08:03:00 AM EDT - 04/02/2016 08:04:00 AM EDT T78.2XXD [facility] T78.2XXD Outpatient Attender: DOMINIQUE SILVER EDRESP 04/01 09:09:00 AM EDT - 04/01/2016 09:10:00 AM EDT [id number] [facility] [id number] Emergency Attender: JEIMY KENNEDY [facility] ED-ED 03/12 03:32:00 PM EDT - 03/28/2016 05:39:00 PM EDT bee sting [facility] bee sting Emergency Attender: EDDIE SILVER ED-ED 02/16 04:21:00 PM EDT - 02/17/2016 08:21:00 PM EDT BEE STING [facility] BEE STING Emergency Attender: PAYAL VARGAS MD ED-ED 0 10/21/2015 03:13:00 PM EDT - 10/21/2015 04:20:00 PM EDT bee sting; epi pen used [facility] bee sting; epi pen used Outpatient Attender: DOMINIQUE SILVER ED-LAB 08/10 01:08:00 PM EST - 08/11/2015 01:09:00 PM EST N946 [facility] N946 Immunizations Vaccine Date Status Description Data Source(s) COVID-19 VACCINE Pfizer 02/23/2021 12:00:00 AM EDT completed [facility] Vaccine Series Complete: NOThis Data was Submitted to [facility] Via Get.com. Medications Medication Brand Name Start Date Product Form Dose Route Admi nistrative Instructions Pharmacy Instructions Status Indications Reaction Description Data Source(s) buspirone hydrochloride 5 MG Oral Tablet BUSPIRONE HCL 02/11/2021 12:00:00 AM EDT tablet 60 TAKE ONE TABLET BY MOUTH TWI CE A DAY TAKE ONE TABLET BY MOUTH TWICE A DAY SOLD: 02/12/2021 [facility] Cephalexin 500 MG Oral Capsule CEPHALEXIN 09/08/2020 12:00:00 AM EDT capsule 40 TAKE 1 CAPSULE BY MOUTH 4 TIMES A DAY FOR 10 DAYS TAKE 1 CAPSULE BY MOUTH 4 TIMES A DAY FOR 10 DAYS SOLD: 09/08/2020 [facility] Ondansetron 4 MG Oral Tablet Ondansetron HCl 4 MG Oral Tablet (ZOFRAN) Ondansetron HCl 4 MG Oral Tablet (ZOFRAN) 08/15/2020 12:00:00 AM EST 4 mg Oral active Take 1 tablet by mouth every 8 (eight) hours as needed for up to 7 days [facility] sennosides, RETIREMENT 8.6 MG Oral Tablet Senna 8.6 MG Oral T ablet Senna 8.6 MG Oral Tablet 08/15/2020 12:00:00 AM EST 2 {tbl} Oral active Take 2 tablets by mouth nightly as needed [facility] sennosides, RETIREMENT 8.6 MG Oral Tablet Sennosides 8.6 MG O ral Tablet (SENOKOT) Sennosides 8.6 MG Oral Tablet (SENOKOT) 08/15/2020 12:00:00 AM EST 8.6 mg Oral active Take 1 tablet by salty th daily [facility] 5 mg 08/15/2020 12:00:00 AM EST tablet 18 TAKE 1 TABLET BY MOUTH 4 TIMES DAILY NEEDED FOR PAIN MAX = 6 TABS/DAY TAKE 1 TABLET BY MOUTH 4 TIMES DAILY NEEDED FOR PAIN MAX = 6 TABS/DAY SOLD: 08/15/2020 [facility] Oxycodone Hydrochloride 5 MG Oral Tablet oxyCODONE HCl 5 MG Oral Tablet (ROXICODONE) oxyCODONE HCl 5 MG Oral Tablet (ROXICODONE) 08/15/2020 12:00:00 AM EST 5 mg Oral active Take 1 t ablet by mouth every 4 (four) hours as needed for up to 3 days, Max Daily Dose: 30 mg [facility] 4 mg 08/15/2020 12:00:00 AM EST tablet 20 TAKE 1 TABLET BY MOUTH EVERY 8 HOURS NEEDED TAKE 1 TABLET BY MOUTH EVERY 8 HOURS NEEDED SOLD: 021 [facility] Magnesium Hydroxide 80 MG/ML Oral Suspen kamari magnesium hydroxide (MILK OF MAGNESIA) 400 MG/5ML suspension 45 mL magnesium hydroxide (MILK OF MAGNESIA) 4 00 MG/5ML suspension 45 mL 08/14/2020 10:00:00 PM EST 45 mL Oral active 45 mL, Oral, Nightly, First dose on Mon08/14/20 at 2200, For 30 days
If serum creatinine > 2 notify provider before administering.
[facility] Medication administered onsite Clindamycin 18 MG/ML Injectable Solution clindamycin ( CLEOCIN) IVPB 900 mg clindamycin (CLEOCIN) IVPB 900 mg 08/14/2020 04:00:00 PM EST 900 mg Intravenous completed 900 mg, Intra venous, at 100 mL/hr, Every 8 hours, First dose on Mon08/14/20 at 1600, For 16 hours
Discouraged Uses: Cellulitis
[facility] Medication administered onsite ondansetron (ZOFRAN) injection 4 mg 08/14/2020 02:32:44 PM EST 4 mg Intravenous active [Order 1 Star t] Name: ondansetron (ZOFRAN) injection 4 mg Signed Summary: 4 mg, Intravenous, Every 8 hours PRN, Nausea, Vomiting, Starting Mon08/14/20 at 1432, For 7 days
Administer if unable to tolerate PO.
[Order 1 End] [Order 2 Start] Name: ondansetron (ZOFRAN) tablet 4 mg Signed Summary: 4 mg, Oral, Every 8 hours PRN, Nausea, Vomiting, Starting Mon08/14/20 at 1432, For 7 days
Administer if able to tolerate PO.
[Order 2 End] [facility] Medication administered onsite sennosides, RETIREMENT 8.6 MG Oral Tablet senna tablet 2 tablet sen na tablet 2 tablet 08/14/2020 02:32:43 PM EST 2 {tbl} Oral active 2 tablet, Oral, Nightly PRN, Constipation, Starting Mon08/14/20 at 1432, For 30 days [facility] Medication administered onsite sennosides, RETIREMENT 35.2 MG/ML Oral Solution senna (SENOKO T) syrup 10 mL senna (SENOKOT) syrup 10 mL 08/14/2020 02:32:43 PM EST 10 mL Oral active 10 mL, Oral, Nightly PRN, Constipation, Starting Mon08/14/20 at 1432, For 30 days [facility] Medication administered onsite fentaNYL (SUBLIMAZE) (PF) injection 25 mcg 9651-5962-82 08/14/2020 02:32:42 PM EST 25 ug Intravenous active 25 m cg, Intravenous, Every 2 hours PRN, Other, breakthrough pain, Starting Mon08/14/20 at 1432, For 3 days [facility] Medication administered onsite Acetaminophen 325 MG Oral Tablet acetaminophen (TYLENO L) tablet 650 mg acetaminophen (TYLENOL) tablet 650 mg 08/14/2020 02:32:42 PM EST 65 0 mg Oral active 650 mg, Oral, E very 6 hours PRN, Mild Pain (Pain Scale Score 1- 3), Headaches, Fever, Starting Mon08/14/20 at 1432, For 30 days
Maximum daily dose of acetaminophen is 3,000 mg from all sources in 24 hours.
[facility] Medication administered onsite Bisacodyl 10 MG Rectal Suppository bisacodyl (DULCOLAX ) suppository 10 mg bisacodyl (DULCOLAX) suppository 10 mg 08/14/2020 02:32:42 PM EST 10 mg Rectal active 10 mg, Rectal, Every 72 hours PRN, Constipation, Starting Mon08/14/20 at 1432, For 30 days
Hold if patient has had BM within the past 2 days.
[facility] Medication administered onsite NaCl infusion 0.9 % 0215-3319-83 08/14/2020 11:45:00 AM EST Intravenous active at 100 mL/hr, Intrav enous, Continuous, Starting Mon08/14/20 at 1145, For 30 days
Hold for good PO intake.
[facility] Medication administered onsite Oxycodone Hydrochloride 5 MG Oral Tablet oxyCODONE (ROXICODONE) immediate release tablet 5 mg oxyCODONE (ROXICODONE) immediate release tablet 5 mg 08/14/2020 11:40:51 AM EST 5 mg Oral active 5 mg, Oral, Every 4 hours PRN, Moderate Pain (Pain Scale Score 4-6), Starting Mon08/14/20 at 1140, For 3 days
If no NATIONAL ACCOUNT MANAGER or when NATIONAL ACCOUNT MANAGER has been D/Cd.
Oxycodone immediate release is limited to 10 mg per dose. Higher doses ( only) require Pain Service consultation and approval.
[facility] Medication administered onsite Oxycodone Hydrochloride 5 MG Oral Tablet oxyCODONE (ROXICODONE) immediate release tablet 10 mg oxyCODONE (ROXICODONE) immediate release tablet 10 mg 08/14/2020 11:40:51 AM EST 10 mg Oral active 10 mg, Oral, Every 4 hours PRN, Severe Pain (Pain Scale Score 7-10), Starting Mon08/14/20 at 1140, For 3 days
If no NATIONAL ACCOUNT MANAGER or when NATIONAL ACCOUNT MANAGER has been D/Cd.
Oxycodone immediate release is limited to 10 mg per dose. Higher doses ( only) require Pain Service consultation and approval.
[facility] Medication administered onsite fentaNYL (SUBLIMAZE) (PF) injection 25 mcg 7082-4023-74 08/14/2020 11:09:38 AM EST 25 ug Intravenous aborted 25 m cg, Intravenous, Every 5 min PRN, Severe Pain (Pain Scale Score 7-10), Starting Mon08/14/20 at 1109, For 10 doses, Recovery [facility] Medication administered onsite gabapentin 300 MG Oral Capsule gabapentin (NEURONTIN) capsule 300 mg gabapentin (NEURONTIN) capsule 300 mg 08/14/2020 07:15:00 AM EST 300 mg Oral completed 300 mg, Oral, Once, Mon08/14/20 a t 0715, For 1 dose, Pre-op [facility] Medication administered onsite Acetaminophen 325 MG Oral Tablet acetaminophen (TYLENO L) tablet 975 mg acetaminophen (TYLENOL) tablet 975 mg 08/14/2020 07:15:00 AM EST 97 5 mg Oral completed 975 mg, Oral, O nce, Mon08/14/20 at 0715, For 1 dose
Maximum daily dose of acetaminophen is 3,000 mg from all sources in 24 hours.
Pre-op [facility] Medication administered onsite sodium chloride (preservative free) 0.9 % flush 3 mL 11302-7 [id number] 08/14/2020 05:59:58 AM EST 3 mL Intravenous aborted 3 mL, Intravenous, Every 8 hours, First dose on Mon08/14/20 at 0600, For 30 days, Pre-op
Saline Lock. Flush Q8H and after each use to Saline Lock.
[facility] Medication administered onsite 500 mg 08/03/2020 12:00:00 AM EST tablet 2 TAKE TWO TABLETS BY MOUTH ONCE TAKE TWO TABLETS BY MOUTH ONCE SOLD: 08/03/2020 [facility] Ethinyl Estradiol 0.035 MG / norgestimat e 0.25 MG Oral Tablet Estarylla 0.25-35 MG-MCG Oral Tablet Estarylla 0.25-35 MG-MCG Oral Tablet 06/16/2020 12:00: 00 AM EST 1 {tbl} Oral aborted Take 1 tablet b y mouth daily [facility] 0.25-35 mg-mcg 03/23/2020 12:00:00 AM EDT tablet 28 TAKE ONE TABLET BY MOUTH EVERY DAY TAKE ONE TABLET BY MOUTH EVERY DAY SOLD: 06/19/2020 [facility] 0.25-35 mg-mcg 03/23/2020 12:00:00 AM EDT tablet 28 TAKE ONE TABLET BY MOUTH EVERY DAY TAKE ONE TABLET BY MOUTH EVERY DAY SOLD: 05/20/2020 [facility] 0.25-35 mg-mcg 03/23/2020 12:00:00 AM EDT tablet 28 TAKE ONE TABLET BY MOUTH EVERY DAY TAKE ONE TABLET BY MOUTH EVERY DAY SOLD: 04/22/2020 [facility] 0.25-35 mg-mcg 03/23/2020 12:00:00 AM EDT tablet 28 TAKE ONE TABLET BY MOUTH EVERY DAY TAKE ONE TABLET BY MOUTH EVERY DAY SOLD: 07/14/2020 [facility] 0.25-35 mg-mcg 03/23/2020 12:00:00 AM EDT tablet 28 TAKE ONE TABLET BY MOUTH EVERY DAY TAKE ONE TABLET BY MOUTH EVERY DAY SOLD: 03/26/2020 [facility] 0.25-35 mg-mcg 12/02/2019 12:00:00 AM EDT tablet 28 TAKE ONE TABLET BY MOUTH EVERY DAY TAKE ONE TABLET BY MOUTH EVERY DAY SOLD: 02/23/2020 [facility] Methylphenidate HCl ER 36 MG Oral Tablet Extended Release 24 Hour [id number] 02/25/2019 12:00:00 AM EDT [facility] Insurance Providers Payer name Policy type / Coverage type Policy ID Covered libertarian ID Covered libertarian's relationship to lugo Policy [place] Plan Information EXCELLUS H [id number] Self [id number] EXCELLUS H [id number] Self [id number] EXCELLUS C [id number] Child [id number] BLUE CARD C [id number] Child [id number] 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 Health Claim [id number] Emplo rouse [id number] 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 [place] WorkComp Health Claim [id number] Employee [id number] [employer] Blue Cross and Blue Shield [place] Blue Cross/B lue Shield [id number] Parent [id number] [employer] [place] Blue Cross/B lue Shield [id number] Parent [id number] [employer] [place] [id number] CHILD [id number] [employer] [id number] CHILD [id number] EX[employer] BC-BS PPO [id number] SP [id number] [place] 210/710 [id number] SP [id number] [place] 210/710 [id number] SP [id number] [employer] BCBS Health Maintenance Organization (HMO) [id number] Family Dependent [id number] BLUE CROSS -O/P [id number] BLUE CROSS -O/P [id number] 1 [id number] [employer] [id number] KAVYA [id number] [employer] 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 [id number] PUPILS 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 [employer] [place] ALEESHA [employer] [place] [id number] KAVYA [id number] EXCE[employer] [place] BLUEIELD BS [id number] BLUE CROSS BLUE SHIELD -O/P [id number] [employer] [id number] CHILD [id number] Problems, Conditions, and Diagnoses Code Display Name Description Problem Type Effective Dates Data Source(s) Z68.30 Body mass index (BMI) 30.0-30.9, adult B LAZ MASS INDEX [BMI]30.0-30.9, ADULT Diagnosis 02/11/2021 02:46:00 PM EDT [facility] elidia Z86.2 Personal history of diseases of the blood and blood-forming organs and certain disorders involving the immune mechanism PRSNL HISTORY OF DIS OF THE BLD/BLD-FORM ORG/IMMUN MECHNSM Diagnosis [facility], unspecified ANXIETY DISORDER, UNSPEC IFIED Diagnosis 02/11/2021 02:46:00 PM [facility] R10.84 Generalized abdominal pain GENERALIZED ABDOMINAL PAIN Diagnosis 02/11/2021 02:46:00 PM [facility] Z981 Arthrodesis status Arthrodesis status Diagnosis 10:22:00 AM [facility] M4317 Spondylolisthesis, lumbosacral region Sp ondylolisthesis, lumbosacral region Diagnosis 01/18/2021 10:22:00 AM [facility] M4310 Spondylolisthesis, site unspecified Spondylolist hesis, site unspecified Diagnosis 01/18/2021 09:44:00 AM [facility] M4300 Spondylolysis, site unspecified Spondylolysis, site un specified Diagnosis 01/18/2021 09:44:00 AM [facility] M43.17 Spondylolisthesis, lumbosacral region Sp ondylolisthesis, lumbosacral region Diagnosis 08/14/2020 11:18:33 AM [facility] R69 Illness, unspecified Illness, unspecified Diagnosis 08/14/2020 05:31:00 AM [facility] L5 pars defects L5 pars defects Diagnosis 08/14/2020 05:3 1:00 AM [facility] Z20.828 Contact with and (suspected) exposure to other viral communicable diseases Contact with and (suspected) exposure to other viral communicable diseases Diagnosis 08/10/2020 10:42:44 AM [facility] pretest pretest Diagnosis 08/10/2020 12:00:00 AM [facility] Z11.3 Encounter for screening for infections with a predominantly sexual mode of transmission ENCNTR SCREEN FOR INFECTIONS W SEXL MODE OF TRANSMISS Diagno sis 07/29/2020 05:36:00 PM [facility] Z11.3 Encounter for screening for infections with a predominantly sexual mode of transmission ENCNTR SCREEN FOR INFECTIONS W SEXL MODE OF TRANSMISS Diagno sis 07/29/2020 10:44:00 AM [facility] Z30.013 Encounter for initial prescription of in jectable contraceptive ENCOUNTER FOR INITIAL PRESCRIPTION OF INJECTABLE CONTRACEP Diagnosis 07/13 10:44:00 AM [facility] M43.06 Spondylolysis, lumbar region SPONDYLOLYSIS, LUMBAR REG ION Diagnosis 05/27/2020 10:31:00 AM [facility] M43.10 Spondylolisthesis, site unspecified Spondylolist hesis, site unspecified Diagnosis 05/26/2020 04:00:52 PM [facility] M43.00 Spondylolysis, site unspecified Spondylolysis, s ite unspecified Diagnosis 05/26/2020 04:00:52 PM [facility] M43.17 Spondylolisthesis, lumbosacral region SP ONDYLOLISTHESIS, LUMBOSACRAL REGION Diagnosis 05/15/2020 09:32:00 AM [facility]renner Z20.828 Contact with and (suspected) exposure to other viral communicable diseases CONTACT W AND EXPOSURE TO OTH VIRAL COMMUNICABLE DISEASES Di agnosis 04/14/2020 04:23:00 PM [facility] M43.17 [id number] Spondylolisthesis at L5-S1 level Problem 05/04/2020 12:00:00 AM [facility] eCW1 ([facility]) Surgeries/Procedures Procedure Description Date Indications Data Source(s) 25 HYDROXY INCLUDES FRACTIONS IF PERFORMED VITAMIN D 25 HYDR OXY 02/11/2021 12:00:00 AM EDT [facility] CYANOCOBALAMIN VITAMIN B-12 VITAMIN B-12 02/11/2021 12:00:00 AM [facility] IRON BINDING CAPACITY IRON BINDING TEST 02/11/2021 12:00:00 AM [facility] IRON ASSAY OF IRON 02/11/2021 12:00:00 AM [facility] FERRITIN ASSAY OF FERRITIN 02/11/2021 12:00:00 AM [facility] OFFICE OUTPATIENT VISIT 15 MINUTES 01/01/2021 12:00:00 AM EDT [facility] ([facility]) OFFICE OUTPATIENT VISIT 15 MINUTES 12/07/2020 12:00:00 AM EDT [facility] ([facility]) OFFICE OUTPATIENT VISIT 15 MINUTES 12/07/2020 12:00:00 AM EDT [facility] ([facility]) OFFICE OUTPATIENT NEW 45 MINUTES 11/23/2020 12:00:00 A M EDT [facility] ([facility]) OFFICE OUTPATIENT NEW 45 MINUTES 11/23/2020 12:00:00 A M EDT [facility] ([facility]) XR SPINE-ENTIRE THORACIC AND LUMBAR- 2 OR 3 VIEW 7208 2 <td>XR SPINE-ENTIRE THORACIC AND LUMBAR- 2 OR 3 VIEW 12806</td><td>Routine</td><td>08/14/2020 1:07 PM EST</td><td></td><td> </td> 08/14/2020 01:07:47 PM EST [facility] RADEX SPINE LUMBOSACRAL 2/3 VIEWS <td>XR SPINE L-S 2-3 VIEWS PORT-OR 11082</td><td>Routine</td><td>08/14/2020 10:29 AM EST</td><td> Diagnosis unknown</td><td> </td> 08/14/2020 10:29:55 AM EST Diagnosis unknown [facility] Diagnosis unknown GONADOTROPIN CHORIONIC QUANTITATIVE <td>POCT ISTAT BHCG</td><td>Routine</td><td>08/14/2020 6:11 AM EST</td><td></td><td> </td> 08/14/2020 06:11:00 AM [facility] CONFIRMATORY TYPE <td>CONFIRMATORY TYPE</td><t d>Routine</td><td>08/14/2020 6:08 AM EST</td><td></td><td> </td> 08/14/2020 06:08:00 AM [facility] XR CHEST FRONTAL AND LATERAL 71251 <td>XR CHEST FRONTA L AND LATERAL 55082</td><td>Routine</td><td>08/10/2020 10:08 AM EST</td><td> Pars defect with spondylolisthesis</td><td> </td> 08/10/2020 10:08:07 AM EST Pars defect with spondylolisthesis [facility] Pars defect with spondylolisthesis IADNA NEISSERIA GONORRHOEAE AMPLIFIED PROBE TQ N.GONORRHOEAE DNA AMP PROB 07/29/2020 12:00:00 AM [facility] IADNA CHLAMYDIA TRACHOMATIS AMPLIFIED PROBE TQ CHYLMD TRACH DNA AMP PROBE 07/29/2020 12:00:00 AM [facility] outpatient clinic visit for assessment and ma dilcia of a patient Hospital Outpatient Clinic Visit 07/29/2020 12:00:00 AM [facility] THERAPEUTIC PROPHYLACTIC/DX INJECTION SUBQ/IM THER/PROPH/CASSIA G INJ SC/IM 07/29/2020 12:00:00 AM [facility] Injection, medroxyprogesterone acetate, 1 mg 12:00:[address] [facility] [address] LUMBAR SPINE W/O CONTRAST MATERIAL CT LUMBAR SPINE W/O DY E 05/27/2020 12:00:00 AM [facility] MRI SPINAL CANAL LUMBAR W/O CONTRAST MATERIAL MRI LUMBAR SPI NE W/O DYE 05/15/2020 12:00:00 AM [facility] 25467 SARS-COV-2 COVID-19 AMP PRB 04/14/2020 12:00:00 AM [facility] Results ID Date Data Source [id number] 03/27/2021 02:15:00 PM EDT [facility] Name Value Range Interpretation Code Description Data Lashonda rce(s) Supporting Document(s) SARS-CoV-2 RNA Resp Ql RENEE+probe NOT DETECTED [facility] This lab was ordered by EDWARDO ospina and reported by EDWARDO Singh. ID Date Data Source [id number] 02/12/2021 01:27:00 AM EDT [facility] Name Value Range Interpretation Code Description Data Lashonda rce(s) Supporting Document(s) FESAT Iron result 77 ug/dL 37-170 Normal (applies to non-numeri c results) [facility] Test Performed By: [facility] [address] [place] [address] Director: Justen Pugh MD FESAT TIBC result 352 ug/dL 265-497 Normal (applies to non-numeri c results) [facility] Test Performed By: [facility] [address] [place] [address] Director: Justen Pugh MD FESAT %Iron Saturation result 12.0-55.0 No rmal (applies to non-numeric results) [facility] Test Performed By: [facility] [address] [place] [address] Director: Justen Pugh MD ID Date Data Source [id number] 02/12/2021 01:27:00 AM EDT [facility] Name Value Range Interpretation Code Description Data Lashonda rce(s) Supporting Document(s) Vitamin B12 result 145 pg/mL 193-986 [facility] Test Performed By: [facility] [address] [place] [address] Director: Justen Pugh MD ID Date Data Source [id number] 02/12/2021 01:27:00 AM EDT [facility] Name Value Range Interpretation Code Description Data Lashonda rce(s) Supporting Document(s) Ferritin result 19 ng/mL 6.2-137.0 Normal (applies to non-numeric results) [facility] Test Performed By: [facility] [address] [place] [address] Director: Justen Pugh MD ID Date Data Source [id number] 02/11/2021 10:26:00 PM EDT [facility] Value Range Interpretation Code Description Data Lashonda rce(s) Supporting Document(s) Iron FE Level 77 ug/dL 37-170 Normal (applies to non-numeric re sults) [facility] Test Performed By: [facility] [address] [place] [address] Director: Justen Pugh MD Total Iron Binding Capacity 352 ug/dL 265-497 Norm al (applies to non-numeric results) [facility] Test Performed By: [facility] [address] [place] [address] Director: Justen Pugh MD %Iron Saturation 12.0-55.0 Normal (applies to non-numeric results) [facility] Test Performed By: [facility] [address] [place] [address] Director: Justen Pugh MD ID Date Data Source [id number] 02/11/2021 10:26:00 PM EDT [facility] Value Range Interpretation Code Description Data Lashonda rce(s) Supporting Document(s) Vitamin B12 145 pg/mL 193-986 Below low normal [facility] Test Performed By: [facility] [address] [place] [address] Director: Justen Pugh MD ID Date Data Source [id number] 02/11/2021 10:26:00 PM EDT [facility] Value Range Interpretation Code Description Data Lashonda rce(s) Supporting Document(s) Ferritin 19 ng/mL 6.2-137.0 Normal (applies to non-numeric resul ts) [facility] Test Performed By: [facility] [address] [place] [address] Director: Justen Pugh MD ID Date Data Source [id number] 02/11/2021 04:34:00 PM EDT [facility] Name Value Range Interpretation Code Description Data Lashonda rce(s) Supporting Document(s) Vitamin D, Total 30.0-100.0 Below low normal [facility] ID Date Data Source [id number] 02/11/2021 04:09:00 PM EDT [facility] Name Value Range Interpretation Code Description Data Lashonda rce(s) Supporting Document(s) Sodium 144 mmol/L 136-145 Normal (applies to non-numeric resul ts) [facility] Potassium 3.5-5.1 Normal (applies to non-numeric resul ts) [facility] Chloride 107 mmol/L 98-107 Normal (applies to non-numeric resul ts) [facility] Carbon Dioxide CO2 21-32 Normal (applies to non-numer ic results) [facility] Anion Gap 5.0-16.0 Normal (applies to non-numeric resul ts) [facility] BUN 13 mg/dL 7-18 Normal (applies to non-numeric results) [facility] Creatinine,Serum 0.7-1.2 Normal (applies to non-numeric results) [facility] GFR >60 Normal (applies to non-numeric results) [facility] Glucose Level 96 mg/dL 60-99 Normal (applies to non-numeric re sults) [facility] Reference range is only applicable when patient is fasting Note the following drug interference: Sulfasalazine Sulfapyridine Can see falsely depressed Can see falsely elevated result with up to 17% results with up to 11% decrease in measurement increase in measurement Recommend patients be collected for this test prior to administration of either drug. Calcium 8.5-10.1 Normal (applies to non-numeric resul ts) [facility] Bilirubin,Total 0.1-1.9 Normal (applies to non-numeric results) [facility] SGOT(AST) 17 U/L 15-37 Normal (applies to non-numeric resul ts) [facility] Note the following drug interference: Sulfasalazine Sulfapyridine Can see falsely depressed Can see falsely elevated result with up to 10% results with up to 10% decrease in measurement increase in measurement Recommend patients be collected for this test prior to administration of either drug. SGPT(ALT) 31 U/L 12-78 Normal (applies to non-numeric resul ts) [facility] Note the following drug interference: Sulfasalazine Sulfapyridine Can see falsely depressed Can see falsely elevated result with up to 29% results with up to 10% decrease in measurement increase in measurement Recommend patients be collected for this test prior to administration of either drug. Alkaline Phosphatase 67 U/L 38-126 Normal (applies to non-num tomeka results) [facility] can increase Alkaline Phosp le vels up to 2 times the normal adult value. Normal values for children and adolescents are 2 to 3 times the normal adult value. Total Protein 6.0-8.2 Normal (applies to non-numeric re sults) [facility] Albumin Level 3.4-5.0 Normal (applies to non-numeric re sults) [facility] ID Date Data Source [id number] 02/11/2021 04:09:00 PM T [facility] Name Value Range Interpretation Code Description Data Lashonda rce(s) Supporting Document(s) Thyroid Stimulate Hormone TSH 0.358-3.74 No rmal (applies to non-numeric results) [facility] ID Date Data Source [id number] 02/11/2021 04:09:00 PM [facility] Name Value Range Interpretation Code Description Data Lashonda rce(s) Supporting Document(s) Free T4 (Free Thyroxine) 0.76-1.46 Normal (applies to non -numeric results) [facility] ID Date Data Source [id number] 02/11/2021 03:30:00 PM [facility] Name Value Range Interpretation Code Description Data Lashonda rce(s) Supporting Document(s) White Blood Count 3.5-10.5 Above high normal [facility] Red Blood Count 3.90-5.00 Above high normal [facility] Hemoglobin 12.0-15.5 Normal (applies to non-numeric resul ts) [facility] Hematocrit 34.9-44.5 Normal (applies to non-numeric resul ts) [facility] Mean Corpuscular Volume 81.2-95.1 Normal (applies to non- numeric results) [facility] Mean Corpuscular Hgb 25.6-32.2 Normal (applies to non-num tomeka results) [facility] Mean Corpuscular Hgb Conc 32.0-36.0 Normal (applies to no n-numeric results) [facility] Red Cell Distribution Width 11.9-15.5 Normal (appli es to non-numeric results) [facility] Platelet Count 273 x10 3/uL 150-450 Normal (applies to non-numeric results) [facility] Mean Platelet Volume 9.4-12.4 Normal (applies to non-num tomeka results) [facility] Neutrophils% (Auto) 31.0-71.0 Normal (applies to non-nume shana results) [facility] Lymphocytes% (Auto) 20.0-55.0 Normal (applies to non-nume shana results) [facility] Monocytes% (Auto) 4.0-12.0 Normal (applies to non-numeri c results) [facility] Eosinophils% (Auto) 1.0-8.0 Below low normal [facility] Basophils% (Auto) 0.0-2.0 Normal (applies to non-numeri c results) [facility] Immature Granulocytes% (Auto) 0.0-2.0 Normal (jonathan lies to non-numeric results) [facility] Neutrophils# (Auto) 1.50-6.20 Above high normal [facility] Lymphocytes# (Auto) 1.20-4.00 Normal (applies to non-nume shana results) [facility] Monocytes# (Auto) 0.00-0.90 Normal (applies to non-numeri c results) [facility] Eosinophils# (Auto) 0.00-0.50 Normal (applies to non-nume shana results) [facility] Basophils# (Auto) 0.00-0.20 Normal (applies to non-numeri c results) [facility] Immature Granulocytes# (Auto) 0.00-7.00 No rmal (applies to non-numeric results) [facility] ID Date Data Source [id number] 01/20/2021 08:58:00 AM EDT [facility] [address] [place] [address] PHONE: [phone] FAX: [phone] Name .................. : KATIE Snell Acct Number.................. : [id number] ROOM. ................. : MR Number ................... : [id number] Stay type ............. : O/P Discharge Date......... ... : 01/18/21 Admit Date ......... : 01/18/21 Admit Phys .................... : STUCK LACIE Date of ....... : 2000 Family Phys ................... : KRISSY [place] Phone .................. : [phone] Age ................................ : 20 Film# .................. .:[id number] Sex ................................. : F Unsigned transcriptions are preliminary reports and do not represent a medical or legal document SPINE LS AP & LAT [id number] COMPLETE:01/18/21 10:01 41396 Reason for Exam: SPONDYLOTHESIS, EVAL L5-S1 LUMBOSACRAL SPINE 3 VIEWS. INDICATION: Spondylolisthesis. Pars defect. Lumbar fusion. Evaluate L5-S1. COMPARISON: None. FINDINGS: Upper lumbar levels show normal disc space height and vertebral body alignment. Normal vertebral body height. No scoliosis. At L5-S1 there at least unilateral probable bilateral pars defect. Grade 1 anterolisthesis measuring 9 mm. Anterior disc space fusion. Surgical clips anterior left sacrum. No indication of hardware loosening or fracture. Sacroiliac joints are intact. IMPRESSION: L5-S1 anterolisthesis with at least unilateral probable bilateral pars defect with anterior disc space hardware fusion. Electronically Reviewed and Signed By Surinder Boyd MD , 01/20/21 08:58, SCB Transcribe Initials: SSR, Transcribe Date: 01/18/21 12:22, Dictation Date: Copy for: LUZ MARIA GUERRA Copy for: KRISSY MORGAN via fax Copy for: [address] [place] [address] REC Page 1 of 1 Name Value Range Interpretation Code Description [facility] Document(s) ID Date Data Source [id number] 10/13/2020 01:28:[address] [facility] XR SPINE LUMBAR 2-3 VIEWS [id number] RES ULTInterpreted by:Howard Mireles MDAleda E. Lutz Veterans Affairs Medical Centerar spine radiographsINDICATION: Assess alignment.COMPARISON: Thoracic and lumbar spine radiographs dated 08/14/2020.FINDINGS: Frontal and lateral views submitted for review. Again, patient status post interbody fusion at L5-S1. Hardware appears intact. Degree of anterolisthesis appears unchanged, measuring roughly 5 mm at L5-S1. There may be minimal 2 mm retrolisthesis at L4-5, slightly decreased in the interval. Vertebral body heights are preserved.Sacroiliac and visualized hip joint spaces are maintained. 2 surgical clips overlie the sacrum to the left of midline.IMPRESSION: Again, status post interbody fusion at L5-S1. Degree of anterolisthesis at L5-S1 appears unchanged, measuring roughly 5 mm. Minimal 2 mm retrolisthesis at L4-5 is also noted, slightly decreased in the interval.This document has been electronically signed by Howard Mireles MD on 10/13/2020 1:26 PM Name Value Range Interpretation Code Description Data Lashonda rce(s) Supporting Document(s) ID Date Data Source [id number] 10/13/2020 01:24:[address] [facility] Name Value Range Interpretation Code Description Data Lashonda rce(s) Supporting Document(s) Progress Note [facility] ODHTZw5yNeVIHiQh28/GHLknELEwt3TeUBhlMMh0KPodNLHdS9MuZMZ6rF1kMKY1NOuMYvVjLaVrCBT8 lbm McKbdDEfYcDXOdHwhHKhVcMYbfZiabtOVwEB6UuSX6CGFhS20rPJOaBVMlO5OdDHF9RyY+Ma4BGKYdwR HgNA5YWnrE6X3jryk4BP8v1N2LsQUkQYP50fwrFQKPSpDgSCv+vXVWbIGpkpUTG6tMc+t/05/auXBGc0 9Gp7UYvXKVrs2Ef8eyaDOoGOfI8MaZ/RiD1Wf9t1GQ 9l/0F2miGQnWD/2DdSp9LyVn9PA7Vj02JgYNeIKrW6x+2kZAo5J/dQEWnwQtEh86Z9Ixyq9YUjAw3k7R /2b2+ekrED4QzkLsWsQ9oin0O5eSBKyduw1FE+Brianna+hcio+lqsgB4UfA540/TmKtugq37CaWrQ0BdWSc [file] y4GMDtEmVpO4UmRwX+JZ9vMAn+Nc1Sb1EjdsT8cbKfSFmtWxu6GU8YBJWKB6YAEn== ID Date Data Source [id number] 10/14/2020 01:58:00 PM EDT [facility] CHLAMYDIA/GC SOURCE: VAGINAL Name Value Range Interpretation Code Description Data Lashonda rce(s) Supporting Document(s) Chlam Amp Probe-Swab Negative Normal (applies to non-num tomeka results) [facility] GC Amp Probe- Swab Negative Normal (applies to non-numer ic results) [facility] Methodology: Second generation nucleic a sariah amplification. ID Date Data Source [id number] 09/01/2020 09:19:15 AM EDT [facility] Name Value Range Interpretation Code Description Data Lashonda rce(s) Supporting Document(s) Progress Note [facility] EWTFSt1pRwNTCmSb83/WRFmyVOXcz0MkNTsmAJj0PPfeYWGnD5UbQEK9dT4nTOH0GHnQTkFiJoSqGyPd lb [file] LH8nWOa+Bt0To0UwmcX2qoAjGWstYBVmJg7HNUXMB1EHLw== ID Date Data Source [id number] 08/21/2020 12:11:55 PM [facility] Name Value Range Interpretation Code Description Data Lashonda rce(s) Supporting Document(s) Operative Note [facility] FPWNLu2gWwMGGdMc71/JBHxbLXDbl1OcTVpbGXf0FZloMDQxG6RvQBG5bN8pRVZ9ZPgSEeIdVcNdByUj lbm [file] NL7LMVGVQ9HTPu== ID Date Data Source [id number] 08/18/2020 04:44:40 PM EST [facility] Name Value Range Interpretation Code Description Data Lashonda rce(s) Supporting Document(s) Discharge Summary [facility] SIUUHl1rGtHTBfQf17/PQAgmBKDbx2YaADibNJg8BZmqIRMhD7OhXKO4xQ3tZXZ7RQuADxQdYwRmYwR4 lbm [file] QMHz3fefWFxwpi+c38/HJ+Tape Weaver+MywXxdD4+v1wsV/FL18O6OE4DEfX0POuDcCBvYTYdg+5t713m81SB0R [file] 8F8Wa7VIob7DQkmbXGoqLxO6UhnRiAvXpjmuYJjwhnufrkrwRbjwonFCpbkOfCazinwpPyxdss5Czxep jEBhKrEBtIrEJsILEKsYHEKsQGEqswGMigwmAgg+vp design [file] AgICAgICAgICAgICAgICAgICAgICAgICAgICAgICAgICAgICAgICAgICAgICAgICAgICAgICAgICAgIC AgICAgICAgICAgICAgICAgICAgICAgICAgICAgICAg ICAgICAgDQogICAgICAgICAgICAgICAgICAgICAgICAgICAgICAgICAgICAgICAgICAgICAgICAgICAg ICAgICAgICAgICAgICAgICAgICAgICAgICAgICAgICAgICAgICAgICAgICAgICAgDQogICAgICAgICAg ICAgICAgICAgICAgICAgICAgICAgICAgICAgICAgIC AgICAgICAgICAgICAgICAgICAgICAgICAgICAgICAgICAgICAgICAgICAgICAgICAgICAgICAgICAgDQ ogICAgICAgICAgICAgICAgICAgICAgICAgICAgICAgICAgICAgICAgICAgICAgICAgICAgICAgICAgIC AgICAgICAgICAgICAgICAgICAgICAgICAgICAgICAg ICAgICAgICAgDQogICAgICAgICAgICAgICAgICAgICAgICAgICAgICAgICAgICAgICAgICAgICAgICAg ICAgICAgICAgICAgICAgICAgICAgICAgICAgICAgICAgICAgICAgICAgICAgICAgICAgDQogICAgICAg ICAgICAgICAgICAgICAgICAgICAgICAgICAgICAgIC AgICAgICAgICAgICAgICAgICAgICAgICAgICAgICAgICAgICAgICAgICAgICAgICAgICAgICAgICAgIC AgDQogICAgICAgICAgICAgICAgICAgICAgICAgICAgICAgICAgICAgICAgICAgICAgICAgICAgICAgIC AgICAgICAgICAgICAgICAgICAgICAgICAgICAgICAg ICAgICAgICAgICAgDQogICAgICAgICAgICAgICAgICAgICAgICAgICAgICAgICAgICAgICAgICAgICAg ICAgICAgICAgICAgICAgICAgICAgICAgICAgICAgICAgICAgICAgICAgICAgICAgICAgICAgDQogICAg ICAgICAgICAgICAgICAgICAgICAgICAgICAgICAgIC AgICAgICAgICAgICAgICAgICAgICAgICAgICAgICAgICAgICAgICAgICAgICAgICAgICAgICAgICAgIC AgICAgDQogICAgICAgICAgICAgICAgICAgICAgICAgICAgICAgICAgICAgICAgICAgICAgICAgICAgIC AgICAgICAgICAgICAgICAgICAgICAgICAgICAgICAg VFJkILBePLTaBJZjORAfEQk8K1jpJFVsRIZxJC7cNOu3Cs1+CLaGOoDdEUB8auHpgE2PXY1dt9ZcNYks ADDyf7AsYLx7HK0VHAOyMNhyUF8INWwhnl9UJOMtSNCpyDGQy9weWeBoDTE7AOEnQfhgXG7WSAUmV9rn cyBbIDUgMCBSIDcgMCBSIDkgMCBSIDExIDAgUiAxMy ZhCFXpUK5MKSNlL870gzKhZK9UWf1SJqNpJR1sov3PGcHoNJCbWnfZAek9HLqfDZ3AmKZgcVLyHBPcQV TWLoHqZ9rgk1AxIcDfTUMEIOrdRT6Pw2XpnEVqXWg+Kd0XKA2wa5JcGNoyBHHpAH6osj3CIXjADvRaO8 ZyoIejSORtg9ZeINYoBMLIlX5aSOK0VUW0YZ3toLSr HQjiLSSCma69LZRlGZ7RJAL8QDGhQt6eGYDuXCFqDjStZVWXEX0UCLUdWYDcmIIaWSTiQVFXBP2MDWos ZSE5NSHnwjJvaQJfYDzlZN4ACAPdvbAzGmTcZYVVGJu+Ba4SOE1ig8NhZBqwONIzLW7rqw7CNYjBRtJh M3O1fFDdE3S5JTdsNr9ZFVKkWGMtMiAzWIHDNAykOB 9RKO3bdxM5XP4GjVZfNKWmRUIoiCXnLOf1U48orUCzMBwtVV6QWZQ+Sobia+Si7PIHEcRVToPRWdWsLrYN KQVvFkQ8QnI2UUq5TrI7UkRE55oRfmhjLoSOqfQM1ZIS8mWSQwOPORGM8TeRCjlA8cxvJyThVrWJKVOs MmF60zhMTrAHEeGRMbZKBvWh8QSMNhY9HowmCkyDso zlYhJEHiLNOIXU0NBGzfghQstEBciTnnAK23fLhgZY3ZFp4SXtPwYX2yud2KaKOoHa2ANJNbQp1ZKHBe XEZkYLMoMYP8NMKuTqVuLYmaXPApCOJeFGZ2XWHyERGuZB5WZlIgLQLaWLL6IIRxGFHiWLXbfc6UCEVh AZA0NBWfOMLuTVGcBQAuKCbrSHMbNIKvVKT3FCWdEJ DzTD9JYiLmMXZhNWZ0ZmylDHIlTIMqfv5BVYZtSFPeFwK7RuVnBKQjMUSiBBjeQRCxQFS9QUT1QYHvNL LbFE8BGtBpOPZyAGAnEqRqJOKkIWXdge3JYHLwMVSuYID8ReVdJICmOXEfHWsaNPAqCID8TqX1WYMcUG MvTA0LYoMmGUVtAUT6RnakXJPxSXQfuh6WBZLsXQOc Znv6RwXuCUCpBUQkMSigYTTfUMK5SrW0EBBwGLHyYN3SSxTsZWGiWXX2KhDhBKJuIJDoyq2ZBCThEQVw Hol7HIUrHATdFWSsGWvsWKCsHME8MDu7SHUcAPDfEF2YIpHvBVRwMPiuQcQoVYFzLEOsps3JQTGsPSYf AFBdZACyUUGmLPDqPBdwQWGjTOS5LmDoNNHpTBGnTI 8JIfRiAAPgUTb6SMidLFIbGUClak1QICFgEXBeRKZ3OMJcQOPlZIRuUUqfEUFmLZI5SzZ4WLMmDIThYW 6NCwQkLNBiVTg1VLmbHVYjSRTkyy3WYJLwLLY2ZHN4FyVyXXIlXGXiBQxaSBMhNFSoCQugQVDfNCOzBI 0WSvCpCTVvMLZsNQPzEXGuMSGmdr5DCXKhSGL9THq4 BxXpEZSfSMRhLSoqXPJkRKJnTBBvHTBeCUZgWO0SWjKwZCKlTXEeDnNqIBTuWJLbbk1JICNwCCR9RdA0 MHSsTMIqOCLyVVamEIDpVBDlSCAwYXWqYXVeMZ0BZyCfTRNvMET1MtXcGYMtCQKiuc4DSUGfDKR6QGNr HNSwYUTmZHFdBDsdQAMcXGW3EZXyIEQwKVEjXY3BNx NbATSgQML8DRNmIHPkSJFskx4FmZQbcFakhb6YMKtTOz5YhSqsHPP4EGhlSj7fdHFvRUExKEYBUy3Ufx GhCEHhMVQHLBfvLYBdBMOpRbMkXryfCBV8I4P7BemvW4XmUhu6STp3GIU1EXWiEvA3SSQdQ7JxHLTmHZ PiXTP3UYRpHqXoCjT2RBnqBCZqPaC+VW5wEZk+On4Vd8WiahL7voUrZQt3GCq4Qa7BDLQAY6WLAg== ID Date Data Source [id number] 08/14/2020 03:56:53 PM [facility] Name Value Range Interpretation Code Description Data Lashonda rce(s) Supporting Document(s) Operative Note [facility] MJSFUa4rEkERQtNm56/DQNquIAUfr4JkYMtnWAd3HXouSKKfN5SrENU4sL2mDBV3JFhHSfNnZkUyVeW6 lbm TlBeiEGvVoJHRiCeqRNwHzWTkxUjfqkFYtKC5XfWD1ZZXgR55nAOLzCTKnR4HrOQP4SOA+Jm3IHCYuvM YiOJ4BLphT7K7Poke7Kq9aIX1PsKV5M0DVggwwCkbYlGb8lIQbPPXSygJ7zWPMsqUSf3/flrpbcpXpL6 TkVxxeHm2hjqGTuAn1sCXG7J4/ha7YkjkGRW+f/xlE UjR74p//EIthjpwPW/cUOvJK0eluWEdW/smBwcb7v5ybH8ef0RUvUt57UtHzba8E4wDh8q6jcf376JE6 7LJIdYEaVi02O742N32d+tCnpnk8g8I6v6h2gWlRIW2Aw+045jl9LsSYtgm331aD0oYBz2JOBDM0KAw0 2htlpedsEwkjh1fYNrcJnmdyRlcmyqqmRRmp9vwsSP [file] 0sJHDLKu5+QRqahCStxWmsJAWPPsg8IdHABnVaGK3IWFg= ID Date Data Source [id number] 08/14/2020 03:50:56 PM [facility] Name Value Range Interpretation Code Description Data Lashonda e(s) Supporting Document(s) History and Physical [facility] DPCACc3dGzQUVcAf49/SZFtuVFUio3CjCNamTIp5LSktUZLdQ9ObZMM6lB7pKTC1ILwEBxNfAwYzTpG9 lbm [file] NgNJd6UFUcAhZuSa8ePDUCOg6+NPidpLTdmEalZSFKKcToToriSKlwZTKLXl0A ID Date Data Source [id number] 08/14/2020 02:09:53 PM [facility] XR SPINE-ENTIRE THORACIC AND LUMBAR- 2 O R 3 VIEW [id number] RESULTInterpreted by:Juvenal Bryant MDINDICATION: S/p L5-S1 ALIF, eval alignment, standing upright XRs.TECHNIQUE: 6 total radiographic views including stitch views of the thoracolumbar spine were obtained.COMPARISON: Lumbar spine radiograph dated 04/21/2020.FINDINGS: There are 12 rib-bearing thoracic vertebral bodies. There are 5 lumbar-type nonrib-bearing vertebral bodies. Vertebral body heights are maintained. No abnormal curvature. Patient is status post anterior lumbar interbody fusion at L5-S1; hardware appears intact. There has been interval decrease in the amount of anterolisthesis at L5-S1, now measuring approximately 5 mm. Otherwise, no subluxation.Visualized bones of extremities as well as bony pelvis are unremarkable.IMPRESSION: Status post anterior lumbar interbody fusion at L5-S1 with interval decrease in anterolisthesis at that level. Otherwise, no significant change when compared to prior study.This document has been electronically signed by Howard Mireles MD on 08/14/2020 2:07 PM Name Value Range Interpretation Code Description Data Lashonda rce(s) Supporting Document(s) ID Date Data Source [id number] 08/14/2020 10:30:29 AM [facility] XR SPINE L-S 2-3 VIEWS PORT-OR [id number] L RESULTThis statement is intended for documentation purposes only.This exam was performed in the Operating Room by the Surgeon and a Radiologist was not present. Please refer to the Operative note in EPIC. Name Value Range Interpretation Code Description Data Lashonda rce(s) Supporting Document(s) ID Date Data Source [id number] 08/14/2020 07:18:39 AM [facility] Name Value Range Interpretation Code Description Data Lashonda rce(s) Supporting Document(s) History and Physical [facility] PKDTTo4iGqYACmWx60/QOPqtMVKar9BfOLpdGDs3PSqaXHNuA6SeOVC3fL6tYOG3QNgREzClWpZuRpV8 lbm [file] MARY+K4cmSi+OkZSWrh4Ydcot73uvIfqigUvIn2f0idX+iQ3h2JJVSfz+G6P5mOYf3JEXd9ZY9tHC/RWD m+fS+utgh8JkuTLQ4Q+ZMIBIoqSX0Osk6h7GbFZRiY tl/Ll18GWdihUY3nnGaGctxIBw25AqO4uD0r90STtx2BN3idBDsY6szAiIiIfjf+451twSrojEAZsDmJ Tape Weaver/W2V5+qblbWGxCPdPO/VPPgDzvFNCFQYIyPATYB4D5l+mjSJLZhyiw2D9bww4cansw8bBtASyHZF3o [file] AgICAgICAgICAgICAgICAgICAgICAgICAgICAgICAgICAgICAgICAgICAgICAgICAgICAgICAgICAgIC AgDQogICAgICAgICAgICAgICAgICAgICAgICAgICAg ICAgICAgICAgICAgICAgICAgICAgICAgICAgICAgICAgICAgICAgICAgICAgICAgICAgICAgICAgICAg ICAgICAgICAgICAgDQogICAgICAgICAgICAgICAgICAgICAgICAgICAgICAgICAgICAgICAgICAgICAg ICAgICAgICAgICAgICAgICAgICAgICAgICAgICAgIC AgICAgICAgICAgICAgICAgICAgICAgDQogICAgICAgICAgICAgICAgICAgICAgICAgICAgICAgICAgIC AgICAgICAgICAgICAgICAgICAgICAgICAgICAgICAgICAgICAgICAgICAgICAgICAgICAgICAgICAgIC AgICAgDQogICAgICAgICAgICAgICAgICAgICAgICAg ICAgICAgICAgICAgICAgICAgICAgICAgICAgICAgICAgICAgICAgICAgICAgICAgICAgICAgICAgICAg ICAgICAgICAgICAgICAgDQogICAgICAgICAgICAgICAgICAgICAgICAgICAgICAgICAgICAgICAgICAg ICAgICAgICAgICAgICAgICAgICAgICAgICAgICAgIC AgICAgICAgICAgICAgICAgICAgICAgICAgDQogICAgICAgICAgICAgICAgICAgICAgICAgICAgICAgIC AgICAgICAgICAgICAgICAgICAgICAgICAgICAgICAgICAgICAgICAgICAgICAgICAgICAgICAgICAgIC AgICAgICAgDQogICAgICAgICAgICAgICAgICAgICAg ICAgICAgICAgICAgICAgICAgICAgICAgICAgICAgICAgICAgICAgICAgICAgICAgICAgICAgICAgICAg ICAgICAgICAgICAgICAgICAgDQogICAgICAgICAgICAgICAgICAgICAgICAgICAgICAgICAgICAgICAg ICAgICAgICAgICAgICAgICAgICAgICAgICAgICAgIC AgICAgICAgICAgICAgICAgICAgICAgICAgICAgDQogICAgICAgICAgICAgICAgICAgICAgICAgICAgIC AgICAgICAgICAgICAgICAgICAgICAgICAgICAgICAgICAgICAgICAgICAgICAgICAgICAgICAgICAgIC TiBHGhJOJgZKLdEWp9H5xtDHBkXCUcVG1kTKv1Jz9+ MSwEAjHdWPU4ahEkhK5CHH5ha9FcTQipQCVga9PkPHl4KO2KCNAwLEqzDZ7VYPvqwa3OXCVdURIfyDAM c6ojJqEuUTR5MPGrQoudQA8LPJNiB4inhhTyOOTtFRYVXFrbCYMPWWuzCNFYRPCaIUFiXnIpRYpmOM7N k0OypPT8BQz+Hu8WDX7db4WkUJzqGbYfYF9swi1CKC iMGsCmQ4JrqtA5LVU3RPAfJs2FCAKzBSIxqZHiJqOoRHCVZyFmX2YioR38UZLUXa8+DQplbmRvYmoNCj G5GPEfi5KnSFs9QY0QMENcDPo4sGHcZVVKUVR4TDPaWD9rb89oEVTRkGrmtZ3wo12uPY7WOTJ1JNCpLR 4gTBJoXOG2DcK0IMEZEJ7DCXGvKXUmvVMhHYByIRED YW2ABLqmIJZ8ANRiobCosADiYRjnXJ7EACWlyjEhAwKxQUFJCDr+Sh9TMI0ia8LuFXsoLLFwJV0qrv2P JEwKXvXwB3F9dXRqF2T9YXkgAo2NXHCcNBXiVbJtQKPZMBdmSS0JKQ4hkbI8YI5TkVTsNQQoLQXtgWGo VVn6V73zaSSrMIiySA7JNZR+Sobia+Ev1LKHDsZYKqEM YyErArNJLVNgByB2YmQ2IKk0ZuH5XgTK49cKaegqSzUDjaYN2HTC9kUJHaHOAZRZ2XsDTfsQ1xtuPrDl JiBVDBBqVxV39ytSSfJAFrXXM6IFBnVn5IUQSdM7DgmuNpoLhpzmDlYHMjJJAIJA4NRRnciaNdeMHopQ atJF85tPqiFR6HIc8CQbHiBX9iqm8LxJOhTp4ICKDd QL9KJQYeEYBsKGSlUPB8TVDyLeQeQJgoFRTwVFIlQHX8WOBhGRHiBO1BYdNdBBMyATM8KJzvRZLiXVKt qt2BQGPfHWN6DxN9RTUpHWMdKIJsLTtaWWHvOMMpQGQ9BUVbBTQfJJ1JErJsPMFhTAD8YsinAOOsAICl nl1SLEGeLQSqMiP3DYAvGMNgFANzSGhhBVAiNUT9YY C7SCMrODBoNT8AUiHmOONfLZP8YxIvCMQfIAQbmd1BXZVsUTAlFFf1PUAlMAUuJPYbPRlaTQUwSWW6HO b5ATCgCBIeEI4QJgSkBXDdQKZ4ONpjISZcBNFpjv9SAQSbCMGrOJk2ZtVcZALhZWVnGGdkKOEjZFUcKK YqREIfUPTtJH7BYxDsZDGpPAZvHDLjQJYoIIIdoo9M FZRuQDJsDjDlZgErPSXzHHWgVXoxJFZtKSO7DOqjVQToHWLoQM2ISuXdHYHsCWStRJYwLVMxERIqgq3H WAIyFHNnMTF5WeFsMMBtYKTzABewIGPfYMZ7Ayp0XIZvEBNgEQ6LYnXuCWXgMeIiGMQiHPTjCWFqsw5D SMLdHSNkCgD7JuBiJEVwCXCcPUhkGDCtLMP8BXG3VE CpZQOiZG7ITzScNVQjNvD2RkNbLZJnHQNeii0TORQuLZKxBaztAuCmUWArKURpEBswKTNiFJX6JMv0HF SoGGSnTH6VXmFsRVQtFlfkXQpgEWSjYYGyzo4VXTHaMNI2OMY6HbWiFXGdRTAcBThjCMFuLIO4IHIwMD HqSJCyFU5AVeIvYRMxOCBdWjCoLVVxQRDcgp0RDSBm XJE7WRPvHCStFSViEGJlOKxiFXFrLXDpEQP8SIRkWTFjOR6KOpTvOTJwYJE0SOnkZXDcVQOkpn8YGSCm RLC4ORD5HxIwQHTzUVNwMEioBCZcXYZrDDU9RPIaJRAzCF9VHjJcVAOpLXYeJODfPPFlDHOmkn8JJQMy VWT1Bjw1CJMyDQWqRJUpCEcjDGHnVAImPKItSVJfWW BpYV4RReMyRLUcQAW4LNItZBHuTWEbxv3OsHOnyXhlgs5PRTpTMz8KtGupVKZ6DRgdEm8htJOmMHGmXF ITDl9FzoVtQJIaMIOUGDqfMWPoRRV1H9S3VhntSHMbMKj0BNFwH3EgMsg5CSInQYYjRyKsObC8HUKqCh GcPCX8JQMqYMvlI4RhTDGbYJYhUvA4DGYeGJA+IF0g DQo+Bj0Ih5ZabpW1teHuOBk2IKUkXL7KOVJFE1RMWy== ID Date Data Source [id number] 08/14/2020 06:27:57 AM [facility] Name Value Range Interpretation Code Description Data Lashonda rce(s) Supporting Document(s) Choriogonadotropin.beta subunit free [Units/volume] in Serum or Plasm a <5 [facility] (NOTE)Levels between 5 and 25 [IU]/L may indicate earlypregnancy and should be repeated after 48 hours. ID Date Data Source [id number] 08/14/2020 06:36:52 AM [facility] Name Value Range Interpretation Code Description Data Lashonda rce(s) Supporting Document(s) ABO and Rh group [Type] in Blood [facility] Blood bank comment [facility] ID Date Data Source [id number] 08/10/2020 03:24:09 PM [facility] XR CHEST FRONTAL AND LATERAL [id number] RESULTInterpreted by:Hakan Sidhu MDINDICATION: Preop.TECHNIQUE: Frontal and lateral views the chest were obtained.COMPARISON: None available.FINDINGS: The chest wall and visualized osseous structures are grossly intact. The cardiomediastinal contours are within normal limits. There is no evidence of pleural effusion or pneumothorax. The lungs are clear.IMPRESSION: No acute disease.This document has been electronically signed by JAXSON Sidhu on 08/10/2020 3:21 PM Name Value Range Interpretation Code Description Data Lashonda rce(s) Supporting Document(s) ID Date Data Source [id number] 08/10/2020 11:17:56 AM [facility] Name Value Range Interpretation Code Description Data Lashonda rce(s) Supporting Document(s) EKG [facility] FWKZDv6tEaUNGtKpz1ItTcAdVTRxQV2uyng5F7F2oZXxL0SlkFMsk8nrJ7FqG1BkDXFtQZSRIA5RwKFi jb2 [file] vLU6GnnqTdFqQIR8zsFk3bGdUjFZDOA8Pgc3XbLZ AwIFIKCj4+BmF5RAO0oBAfPkz7Yos3WBusWYUZVj== ID Date Data Source [id number] 08/10/2020 10:44:14 AM EST [facility] Name Value Range Interpretation Code Description Data Lashonda rce(s) Supporting Document(s) Progress Note [facility] WQTOVr2wOoSWWpMw60/UNEylPTEab4AsOJdpYFc3OQdvYHEkK0AuBNU6cZ1nHJK0JVlJLwChVkYpMqPb lbm [file] BbYXRbLkCY5TGJg= ID Date Data Source [id number] 08/10/2020 10:27:00 AM EST [facility] Name Value Range Interpretation Code Description Data Lashonda rce(s) Supporting Document(s) SARS-CoV-2 RNA 2019 nCoV Real-Time RT-PCR: NOT DETECTED [facility] This lab was ordered by [facility] and reported by [facility]. 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 [facility] Patient has symptoms related to [facility] When did you start to experience these symptoms [Date and time] [Phen X] [facility] Patient was hospitalized because of this condition [facility] patient was admitted to ICU for [facility] Patient resides in a congregate care setting [facility] status [facility] ID Date Data Source [id number] 08/10/2020 02:05:19 PM [facility] Name Value Range Interpretation Code Description Data Lashonda rce(s) Supporting Document(s) Leukocytes [#/volume] in Blood by Automated count 7.0 10*3/uL 4.5-13 [facility] Erythrocytes [#/volume] in Blood by Automated count 4.86 10*6/uL 4.1- 5.3 [facility] Hemoglobin [Mass/volume] in Blood 14.0 g/dL 11.5-15.5 [facility] Hematocrit [Volume Fraction] of Blood by Automated count 42.5 % 3 6-45 [facility] Erythrocyte mean corpuscular volume [Entitic volume] by Auto mated count 87.4 fL 80-96 [facility] Erythrocyte mean corpuscular hemoglobin [Entitic mass] by Automated count 28.8 pg 27-33 [facility] Erythrocyte mean corpuscular hemoglobin concentration [Mass/volume] by Automated count 32.9 g/dL 32.0-36.0 [facility] distribution width [Ratio] by Automated count 12.7 % 11.5-14.5 [facility] Platelets [#/volume] in Blood by Automated count 264 10*3/uL 150-400 [facility] Differential cell count method - Blood [facility] Neutrophils/100 leukocytes in Blood by Automated count 62 % [facility] Lymphocytes/100 leukocytes in Blood by Automated count 32 % [facility] Monocytes/100 leukocytes in Blood by Automated count 5 % [facility] Eosinophils/100 leukocytes in Blood by Automated count 1 % [facility] Basophils/100 leukocytes in Blood by Automated count 0 % [facility] Neutrophils [#/volume] in Blood by Automated count 4.36 10*3/uL 1.8-7 .0 [facility] Lymphocytes [#/volume] in Blood by Automated count 2.23 10*3/uL 1.2-4 .0 [facility] Monocytes [#/volume] in Blood by Automated count 0.34 10*3/uL 0-0.8 [facility] Eosinophils [#/volume] in Blood by Automated count 0.06 10*3/uL 0-0.5 [facility] Basophils [#/volume] in Blood by Automated count 0.01 10*3/uL 0-0.2 [facility] Nucleated erythrocytes/100 leukocytes [Ratio] in Blood by Automated count 0 /100{WBCs} 0-0 [facility] ID Date Data Source [id number] 08/10/2020 02:14:55 PM [facility] Name Value Range Interpretation Code Description Data Lashonda rce(s) Supporting Document(s) Prothrombin time (PT) 11.8 s 12.5-14.9 L [facility] INR in Platelet poor plasma by Coagulation assay 0.86 [facility] Routine intensity oral anticoagulation I NR is typically 2.0-3.0. Target INR must be clinically individualized. ID Date Data Source [id number] 08/10/2020 02:14:55 PM [facility] Value Range Interpretation Code Description Data Alshonda rce(s) Supporting Document(s) aPTT in Platelet poor plasma by Coagulation assay 27.0 s 24.0-33. 0 [facility] ID Date Data Source [id number] 08/10/2020 02:19:04 PM [facility] Value Range Interpretation Code Description Data Lashonda rce(s) Supporting Document(s) Bicarbonate [Moles/volume] in Serum 24 mmol/L 22-29 [facility] Chloride [Moles/volume] in Serum or Plasma 107 mmol/L 98-107 [facility] Creatinine [Mass/volume] in Serum or Plasma 0.83 mg/dL 0.50-0.90 [facility] Glucose [Mass/volume] in Serum or Plasma 83 mg/dL 70-140 [facility] Potassium [Moles/volume] in Serum or Plasma 4.0 mmol/L 3.4-5.1 [facility] Sodium [Moles/volume] in Serum or Plasma 142 mmol/L 136-145 [facility] Urea nitrogen [Mass/volume] in Serum or Plasma 12 mg/dL 6-20 [facility] Anion gap 3 in Serum or Plasma 11 mmol/L 8-15 [facility] Osmolality of Serum or Plasma by calculation 293 mosm/kg 275-300 [facility] Creatinine/Urea nitrogen [Mass Ratio] in Serum or Plasma 14 [facility] Calcium [Mass/volume] in Serum or Plasma 9.8 mg/dL 8.6-10.0 [facility] Glomerular filtration rate/1.73 sq M pre dicted among non-blacks [Volume Rate/Area] in Serum or Plasma by Creatinine-based formula (MDRD) >6 0 [facility] Glomerular filtration rate/1.73 sq M pre dicted among blacks [Volume Rate/Area] in Serum or Plasma by Creatinine-based formula (MDRD) >60 [facility] ID Date Data Source [id number] 08/10/2020 01:57:59 PM [facility] Name Value Range Interpretation Code Description Data Lashonda rce(s) Supporting Document(s) ABO and Rh group [Type] in Blood [facility] Blood group antibody screen [Presence] in Serum or Plasma [facility] Blood bank comment [facility] ID Date Data Source [id number] 08/10/2020 11:09:57 AM [facility] Name Value Range Interpretation Code Description Data Lashonda rce(s) Supporting Document(s) Color of Urine [facility] Clarity of Urine [facility] Specific gravity of Urine by Refractometry automated 1.021 1.003 -1.030 [facility] pH of Urine by Automated test strip 6.0 5.0-8.0 [facility] Protein [Mass/volume] in Urine by Automated test strip Neg [facility] Glucose [Mass/volume] in Urine by Automated test strip Neg [facility] Ketones [Mass/volume] in Urine by Automated test strip Neg [facility] Bilirubin.total [Presence] in Urine by Automated test strip Negative [facility] Hemoglobin [Presence] in Urine [facility] Leukocyte esterase [Presence] in Urine by Automated test strip Negative [facility] Nitrite [Presence] in Urine by Automated test strip Negati [facility] Leukocytes [#/area] in Urine sediment by Automated count 0 /HPF 0 -5 [facility] Erythrocytes [#/area] in Urine sediment by Automated count 0 /HPF 0-3 [facility] ID Date Data Source [id number] 08/10/2020 11:16:44 AM [facility] Name Value Range Interpretation Code Description Data Lashonda rce(s) Supporting Document(s) Choriogonadotropin ( test) [Presence] in Urine [facility] NEGATIVE: either no HCG or too low to de tect, <20 mU/mL Specific gravity of Urine by Refractometry 1.021 1.003-1.030 [facility] ID Date Data Source [id number] 07/31/2020 04:58:00 PM [facility] Name Value Range Interpretation Code Description Data Lashonda rce(s) Supporting Document(s) Chlamydia,Urine result Negative Very abnormal (applies t o non-numeric units [facility] Test Performed By: [facility] [address] [place] [address] Director: Justen Pugh MD . THIS IS A STATE REPORTABLE COMMUNICABLE DISEASE. Results called 07/31/201618, Kathy Winter MT @ lab read back information to LAB.BRITNI MARTINEZ read back information 07/31/20 163 MECHELLE.TITI This is a Corrected Result --- 07/31/201656 --- Chlamydia,Ur previously reported as: Positive A Test Performed By: [facility] [address] [place] [address] Director: Justen Pugh MD . THIS IS A STATE REPORTABLE COMMUNICABLE DISEASE. Results called 07/31/20 1619, Kathy Winter MT @ lab read back information to LAB.STEPHANIE Snell read back information 07/31/20 1631 LAB.TITI Urine result Negative Normal (applies to non-numeric results) [facility] Test Performed By: [facility] [address] [place] [address] Director: Justen Pugh MD . Methodology: Second generation nucleic acid amplification. ID Date Data Source [id number] 07/31/2020 04:19:00 PM EST [facility] Name Value Range Interpretation Code Description Data Lashonda rce(s) Supporting Document(s) Chlamydia,Urine Negative [facility] Test Performed By: [facility] [address] [place] [address] Director: Justen Pugh MD . THIS IS A STATE REPORTABLE COMMUNICABLE DISEASE. Results called 07/31/201618, Kathy Winter MT @ lab read back information to LAB.DANTEDOREEN Test Performed By: [facility] [address] [place] [address] Director: Justen Pugh MD . Methodology: Second generation nucleic acid amplification. ID Date Data Source [id number] 05/27/2020 05:49:00 PM [facility] Imaging Services Department Imaging Report [address] [address] %(RAD)RES..mtdd.print.filter("line") Name: KATIEALDO M : 2000 Age/Sex: 20F Ordering Provider: Eddie Crawford MD Med Rec #: [id number] Reg Status: DEP REF Room #: Date of Service: 05/27/20 Report Number: [id number] cc:NADEEM Oropeza; Eddie Crawford MD Send Report To: [id number] CT/CT Lumbar Spine No Contrast Reason for exam: PARS DEFECT W/SPONDYLOLISTHESIS Comparison is made to MRI 05/15/2020 FINDINGS: Bilateral spondylolysis is present at L5 with associated grade 1 spondylolisthe sis. Pars defect demonstrates mild fragmentation bilaterally, potentially in the setting of ongoing ossification of the L5 posterior element. No other malalignment and no other pars defect. No compression fracture. Mild posterior disc bulge at L4-5 and L5-S1, better evaluated on MRI, not causing significant canal stenosis. IMPRESSION: Bilateral L5 spondylolysis with associated spondylolisthesis, grade1. While performing the above CT exam, the following dose reduction techniques wereused: *Automated exposure control *Adjustment of the mA and/or kV according to patient size *Use of iterative reconstruction technique CT Dose in mGy: Contrast Agent: Amount in ml: Method of Administration: REPORT SIGNATURE ON FILE Reported By: Srikanth Rose MD <Electronically signed by Srikanth Rose MD> 05/29/20 1311 Dictation Date/Time: 05/27/20 1222 Transcribed Date/Time: 05/27/20 5589 Transcripti onist: EMILIANA Name Value Range Interpretation Code Description Data Lashonda rce(s) Supporting Document(s) ID Date Data Source [id number] 05/19/2020 10:11:37 AM EST [facility] Name Value Range Interpretation Code Description Data Lashonda rce(s) Supporting Document(s) Progress Note [facility] SODLQc6mDoXCUnOc50/VQMwcALIkg8DuMBszWSs6KSmyDIBpT8GtLXX4aS4lUJS7SNrVTcRyVoSvTmH6 [facility] [place] [file] xQIgRa4BAiGaZTYOXjBzXW0MLBe= ID Date Data Source [id number] 05/18/2020 08:29:00 AM EST [facility] Imaging Services Department Imaging Report [address] [place] [address] %(RAD)RES..mtdd.print.filter("line") Name: ALDO WILSON : 2000 Age/Sex: 20F Ordering Provider: MONTSERRAT Blanton Med Rec #: [id number] Reg Status: DEP REF Room #: Date of Service: 05/15/20 Report Number: [id number] cc:NADEEM Oropeza; MONTSERRAT Blanton Send Report To: [id number] MRI/MRI Lum Spine No Contrast Reason for exam: SPONDYLOLISTHESIS Prior examination: 09/21/16. FINDINGS: Again seen is spondylolisthesis at L5-S1 on the basis of bilateral spondylolysis, not substantially changed since the prior examination. There is further desiccation of the L4-L5 intervertebral disk. Again seen is a disk bulge at L4-L5 which does not yield significant spinal canal or neural foraminalstenosis. There is facet edema which can be a source of pain and clinical correlation is advised. Again seen is a small disk bulge at L5-S1. This again does not yield significant spinal canal or neural foraminal stenosis although there is mild to moderate bilateral neural foraminal stenosis due to the aforementioned spondylosis. IMPRESSION: Again seen is mild multilevel degenerative disk disease without significant spinal canal or neural foraminal stenosis. Time portable performed: Fluoroscopy time in seconds: Number of Exposures: Contrast Agent in ml: Method of Administration: REPORT SIGNATURE ON FILE Reported By: Connor Larios MD <Electronically signed by Connor Larios MD> 05/18/20 1050 Dictation Date/Time: 05/15/20 1527 Transcribed Date/Time: 05/18/20 0829 [employer] Commander: MARYANA Name Value Range Interpretation Code Description Data Lashonda rce(s) Supporting Document(s) ID Date Data Source [id number] 04/21/2020 11:10:56 AM [facility] XR SPINE LUMBAR 2-3 VIEWS [id number] RES ULTInterpreted by:Brock Roberts MDINDICATION: 20-year-old female with low back pain.TECHNIQUE: Lateral radiographs of the lumbar spine in the standing position in neutral, extension and flexion.COMPARISON: Lumbar spine radiograph dated 01/10/2019.FINDINGS/IMPRESSION:The last complete intervertebral disc space is considered L5-S1 for the purposes of this report. No acute fracture is identified. Redemonstration of bilateral pars defects at the L5 level. There is approximately 1 cm anterolisthesis of L5 on S1, unchanged. The vertebral body he ights are maintained. The lumbar lordotic curvature appears within normal limits.This document has been electronically signed by Alfa Hooper MD on 04/21/2020 11:08 AM Name Value Range Interpretation Code Description Data Lashonda rce(s) Supporting Document(s) ID Date Data Source [id number] 04/21/2020 11:09:28 AM [facility] Name Value Range Interpretation Code Description Data Lsahonda rce(s) Supporting Document(s) Progress Note [facility] JFRCJa1xSjPOZgOd34/XMNghCLEii2KeCIuzPFs5GIclSOQsB4QqTJG5uT6sUCB9RIgRDzHjOtTjBFLn lbm [file] BeSzE49A8c5E13lvk3wSoYNTZj6t2l7GO3YdfmmCALxQ6g0Msq6NbzfPFNnr6IfWPRraORa7TO/y+Carlos A [file] OHgjmle2PQO2YlSedUjP7qmadOgLNCVjID8W+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 [file] AgICAgICAgICAgICAgICAgICAgICAgICAgICAgICAg ICAgICAgICAgICAgICAgICAgICAgICAgICAgICAgICAgICAgICAgDQogICAgICAgICAgICAgICAgICAg ICAgICAgICAgICAgICAgICAgICAgICAgICAgICAgICAgICAgICAgICAgICAgICAgICAgICAgICAgICAg ICAgICAgICAgICAgICAgICAgICAgDQogICAgICAgIC AgICAgICAgICAgICAgICAgICAgICAgICAgICAgICAgICAgICAgICAgICAgICAgICAgICAgICAgICAgIC AgICAgICAgICAgICAgICAgICAgICAgICAgICAgICAgDQogICAgICAgICAgICAgICAgICAgICAgICAgIC AgICAgICAgICAgICAgICAgICAgICAgICAgICAgICAg ICAgICAgICAgICAgICAgICAgICAgICAgICAgICAgICAgICAgICAgICAgDQogICAgICAgICAgICAgICAg ICAgICAgICAgICAgICAgICAgICAgICAgICAgICAgICAgICAgICAgICAgICAgICAgICAgICAgICAgICAg ICAgICAgICAgICAgICAgICAgICAgICAgDQogICAgIC AgICAgICAgICAgICAgICAgICAgICAgICAgICAgICAgICAgICAgICAgICAgICAgICAgICAgICAgICAgIC AgICAgICAgICAgICAgICAgICAgICAgICAgICAgICAgICAgDQogICAgICAgICAgICAgICAgICAgICAgIC AgICAgICAgICAgICAgICAgICAgICAgICAgICAgICAg ICAgICAgICAgICAgICAgICAgICAgICAgICAgICAgICAgICAgICAgICAgICAgDQogICAgICAgICAgICAg ICAgICAgICAgICAgICAgICAgICAgICAgICAgICAgICAgICAgICAgICAgICAgICAgICAgICAgICAgICAg ICAgICAgICAgICAgICAgICAgICAgICAgICAgDQogIC AgICAgICAgICAgICAgICAgICAgICAgICAgICAgICAgICAgICAgICAgICAgICAgICAgICAgICAgICAgIC AgICAgICAgICAgICAgICAgICAgICAgICAgICAgICAgICAgICAgDQogICAgICAgICAgICAgICAgICAgIC AgICAgICAgICAgICAgICAgICAgICAgICAgICAgICAg WDYgZDCeZZYkXBJsKZDzYYTtHKXdGZUrLQCsVAPxXIOuOXCjBHZtWVAlRNWhOIQuPWy7B8tnUXYsOBYy NK0tASh9Sr3+FMzOTqEsVEP0uaKeqF9QYD4qc0LsZJzeTMBzs5AbYNi8EZ5FQZMfSJbeQL0HOPtuij0O EYOmVDUseDNTn9ehJvZuRXF8OPUkErzpPZ3WQLAvL6 zcbiCgTZFdIHEMULatLZCAAImiAKZDRWIdZPRcDpEsYRteVE0Hz0AikMZ0YHk+Gw6HBX2kq6VsWWzfPF QuTW8xfa5RPNxYJqAlB2LjguA4NJU1HRXrVw2TMXDtVPFgrILiBUPmOXJUMdKfQ2TipB94AVWHEl5+DQ wtslDoXqlZYzR1CTPru6FgDBo4HZ3PNPYlVHs3lUPb LJUwP0Qkv7IfMn21MDWnJldxSoDpTlLylFMMNXQxxHRbLHVBAIEwoKIqGY2uRW4zIEBhXMSuQqQ4TSMC GS4SAIXiGPEegUUqTDQrUZGLQJ3RMGmoSSV6QPTrgtJnhYStHFerOG9VCULzdtIvJgdpRPUGKDg+Pg0K VV8fl3OhXYgiKQOaFO3lpi9ASEoHAfUdF3D4bOSwZ4 B8JZiqRt0KHREzURAfQoIzISISGKvcXX9OQA4wllX1JL1HyVYxSYYlGHLicTUnCLf6E49ajUVyWLdaND 0KICA+Sobia+Qe4SQYHkEKRnKSEuXwTvMLLSPdLwC7GbS6TVn4GnU5OtPM06rIkqwsElGKmwFW4JPG1qFB BdYRIKNN4EvZInhN6aznYuJGBhUSQYKfWgE51lxKQt EKXgHEN8DSUqKw8VUKHyY8OavvXzyEmrqgOfRLLiOLXYPZ8ALVcjutPapRRttAiiGZ52wKqhNH6CXz2T VcCuEY7rvb1KpRLwQw4HQWRsHX5YDCOsPHXxEOSsLFC4SLZrVaEcORjkXLOyKKSjNGC5UIWmXIMeUU0W TzCxBCNeNvjtBVXuFWNhAHMvzm1UHPDjBZWzNRr9Eo HgEQJeEBHhQSaqBEGqWOXpKRH5XQLpNICiSF0PYzKcXPKmYMTrHiIrAQYjMREaib0YNUIbWVGwTsI4VH VcDIGwGOYxBAikRGQwOQR4NhNdTHFxWTJyBT9WRjPjLCVsCXZ3RGMsJBNrMJUufg8RRJBnMVCfQHz8SZ XzPSNmMBOmNSpmEWKoGPL1UEK7GVWxOOMsFO1SUqFp KMIeGNP5JwfjEVCsNOFbbi1NTRKsVSKvJCa6ZDKxOVNjXWEiASviDBJbWMUzLwM3DUYoMOGtGD3WCmBm TIDvCUS6ZtEoKHFeHMUdqd0DWGPbVTDtNcIqTANhHYMiXLOxVMvfAONtBSYbBZv0AUDmUDJfSN2DXuSg FJFcNUIsYrCcJIBrDSOgjy7FVIAqUHRjHpO1GNJxKN ZsPCYhPCxyIYPcVUZ4PJm9GDOzLMGcCI9MYaXsSQGqIeDtDXkcONWuFTXjcz0MBFNlYRXhSJSpSKQrCU NqGLHvMEaqUENdDYX1Uxg2PVAaSYUoZC8YApPnZGCgHwZ8FbBtYZDbGCOcce0PKQHjXAAbCmo0FJOdCK RcJRGgXSviEPUwBTP9NAX5RYOsSLBaVQ6HGqCmPAPf QefoPuLzDTVvGZYrjx4KDTQgGCYyFiQjNtTkNELwLMSnVSqkNEUuYDH8PJy4GNAzKXImQG0DAdJwVVIm HgpcErLhIYLwYPIuxr7GUBDuZOEdTAHfNvAnFGFkPSKhLEi0fsAujFDuLWe7IP2XB5UvlhJvCwLPNj9Q q789PVPiWBXzTv4FH9yiNb8nOLExIUBRFq0HJGw0Dy iqZuU7CPR7AZRnGEI7LGIqZOFkCKL9OTQ7MiFrKSC+NSplKDN1XFCdNGjjZDI2TmOxDVIuViD3PZQgAh KmDsJ1WA8bIDTLSe2+VAemiIAlbKjoBSNVMkL2RVIrUHxeTQQCEm9F ID Date Data Source [id number] 04/21/2020 03:33:00 PM EST [facility] Name Value Range Interpretation Code Description Data Lashonda rce(s) Supporting Document(s) COVID-19 Result Normal (applies to non-numeric results) [facility] See scanned report ID Date Data Source [id number] 04/14/2020 12:00:00 AM EST [facility] Name Value Range Interpretation Code Description Data Lashonda rce(s) Supporting Document(s) SARS-CoV2 Rapid Antigen [facility] This lab was ordered by [facility] and reported by [facility]. Procedure Social History Code Duration Value Status Description Data Source(s ) Alcohol intake 10/13/2020 12:00:00 AM EDT Current non-d kaylen of alcohol (finding) completed Current non-drinker of alcohol (finding) [facility] Tobacco use and exposure 10/13/2020 12:00:00 AM EDT Never used co mpleted Never used [facility] Smoking 10/13/2020 12:00:00 AM EDT Never smoker completed Never s moker [facility] Alcohol intake 08/15/2020 12:00:00 AM EST Current non-d kaylen of alcohol (finding) completed Current non-drinker of alcohol (finding) [facility] Alcohol intake 08/14/2020 12:00:00 AM EST Current non-d kaylen of alcohol (finding) completed Current non-drinker of alcohol (finding) [facility] Alcohol intake 08/07/2020 12:00:00 AM EST Current non-d kaylen of alcohol (finding) completed Current non-drinker of alcohol (finding) [facility] Smoking 05/04/2020 12:00:00 AM EST Never Smoker completed Never S moker eCW1 ([facility]) Smoking 05/04/2020 12:00:00 AM EST Never Smoker completed Never S moker eCW1 ([facility]) Alcohol intake 04/21/2020 12:00:00 AM EST Current non-d kaylen of alcohol (finding) completed Current non-drinker of alcohol (finding) [facility] Vital Signs ID Date Data Source UNK Name Value Range Interpretation Code Description Data Source(s) Systolic blood pressure 102 mm[Hg] 102 mm[Hg] M EDENT ([facility]) Diastolic blood pressure 61 mm[Hg] 61 mm[Hg] [facility] Heart rate 72 /min 72 /min [facility] ([facility]) Oxygen saturation in Arterial blood by Pulse oximetry 98 % 98 % [facility] ([facility]) Body weight 190.00 [lb_av] 190.00 [lb_av] MEDEN T ([facility]) Body weight 86.184 kg 86.184 kg [facility] ([facility]) Body height 64 [in_i] 64 [in_i] [facility] ([facility]) 5'4" Body mass index (BMI) [Ratio] 32.6 kg/m2 32.6 k g/m2 [facility] ([facility]) Body surface area Derived from formula 1.91 m2 1.91 m2 MEDENT ([facility]) Body temperature 97.7 [degF] 97.7 [degF] [facility] ([facility]) Body height 64 [in_i] 64 [in_i] [facility] ([facility]) 5'4" Body weight 197.12 [lb_av] 197.12 [lb_av] MEDEN T ([facility]) Body mass index (BMI) [Ratio] 33.8 kg/m2 33.8 k g/m2 [facility] ([facility]) Body weight 200.2 [lb_av] 200.2 [lb_av] eCW1 ([facility]) Body height 65 [in_i] 65 [in_i] eCW1 ([facility]) Body mass index (BMI) [Ratio] 33.31 kg/m2 33.31 kg/m2 W1 ([facility]) Heart rate 73 /min 73 /min eCW1 (Counts include 234 beds at the [facility]) Respiratory rate 16 /min 16 /min eCW1 ([facility]) Body temperature 96.4 [degF] 96.4 [degF] eCW1 ( [facility]) Systolic blood pressure 120 mm[Hg] 120 mm[Hg] e CW1 ([facility]) Diastolic blood pressure 57 mm[Hg] 57 mm[Hg] eCW1 ([facility]) ID Date Data Source [id number] 08/21/2020 12:11:55 PM [facility] Name Value Range Interpretation Code Description Data Source(s) WEIGHT RECORDED 200 lb 200 lb [facility] ID Date Data Source [id number] 04/21/2020 11:09:28 AM [facility] Name Value Range Interpretation Code Description Data Source(s) WEIGHT RECORDED 175 lb 175 lb [facility] Body height Measured 65 in 65 in [facility] ID Date Data Source [id number] 03/04/2021 04:10:00 AM EDT Stacey [facility] Name Value Range Interpretation Code Description Data Source(s) Weight Measurement Method 8 8 [facility] Weight 240 240 [facility] Temperature Source 7 7 [facility] Temperature 97.8 97.8 [facility] spital Respiratory Effort 1 1 [facility] Respiratory Rate 16 16 [facility] Pulse Assessment Method 4 4 [facility] Pulse Rate 79 79 [facility] pital Blood Pressure 127/65 127/65 [facility] Weight Measurement Method 8 8 [facility] Weight 240 240 [facility] pital Temperature Source 7 7 [facility] Temperature 97.8 97.8 [facility] spital Respiratory Effort 1 1 [facility] Respiratory Rate 16 16 [facility] Pulse Assessment Method 4 4 [facility] Pulse Rate 74 74 [facility] pital Blood Pressure 127/65 127/65 [facility] Weight Measurement Method 8 8 [facility] Weight 240 240 [facility] pital Temperature Source 7 7 [facility] Temperature 97.8 97.8 [facility] spital Respiratory Effort 1 1 [facility] Respiratory Rate 14 14 [facility] Pulse Rate 84 84 [facility] pital Blood Pressure 142/74 142/74 [facility] ID Date Data Source [id number] 03/04/2021 04:10:00 AM EDT [facility] Name Value Range Interpretation Code Description Data Source(s) Weight Measurement Method 8 8 [facility] Weight 2528 2528 [facility] pital Temperature Source 7 7 [facility] Temperature 98 98 [facility]ital Respiratory Effort 1 1 [facility] Respiratory Rate 16 16 [facility] Pulse Assessment Method 4 4 [facility] Pulse Rate 57 57 [facility] pital Height 64 64 [facility] pital Blood Pressure 112/52 112/52 [facility] ID Date Data Source [id number] 03/04/2021 04:10:00 AM EDT [facility] Name Value Range Interpretation Code Description Data Source(s) Weight Measurement Method 8 8 [facility] Weight 2528 2528 [facility] pital Temperature Source 7 7 [facility] Temperature 97.5 97.5 [facility] Respiratory Effort 1 1 [facility] Respiratory Rate 16 16 [facility] Pulse Assessment Method 4 4 [facility] Pulse Rate 69 69 [facility] pital Height 64 64 [facility] pital Blood Pressure 116/78 116/78 [facility] ID Date Data Source [id number] 03/04/2021 04:10:00 AM EDT [facility] Name Value Range Interpretation Code Description Data Source(s) Weight Measurement Method 1 1 [facility] Weight 2336 2336 [facility] pital Temperature Source 7 7 [facility] Temperature 98.3 98.3 [facility] Respiratory Effort 1 1 [facility] Respiratory Rate 16 16 [facility] Pulse Assessment Method 4 4 [facility] Pulse Rate 96 96 [facility] pital Height 65 65 [facility] pital Blood Pressure 104/71 104/71 [facility] ID Date Data Source [id number] 03/04/2021 04:10:00 AM EDT [facility] Name Value Range Interpretation Code Description Data Source(s) Weight Measurement Method 8 8 [facility] Weight 2240 2240 [facility] pital Temperature Source 7 7 [facility] Temperature 98.2 98.2 [facility] Respiratory Effort 1 1 [facility] Respiratory Rate 14 14 [facility] Pulse Assessment Method 1 1 [facility] Pulse Rate 64 64 [facility] pital Height 65 65 [facility] pital Blood Pressure 101/56 101/56 [facility] ID Date Data Source [id number] 03/04/2021 04:10:00 AM EDT [facility] Name Value Range Interpretation Code Description Data Source(s) Weight Measurement Method 8 8 [facility] Weight 2240 2240 [facility] pital Temperature Source 7 7 [facility] Temperature 97.4 97.4 [facility] Respiratory Effort 1 1 [facility] Respiratory Rate 18 18 [facility] Pulse Assessment Method 4 4 [facility] Pulse Rate 60 60 [facility] Height 63 63 [facility] 111/76 111/76 [facility] ID Date Data Source [id number] 03/04/2021 04:10:00 AM EDT [facility] Name Value Range Interpretation Code Description Data Source(s) Weight Measurement Method 1 1 [facility] Weight 2192 2192 [facility] pital Temperature Source 7 7 [facility] Temperature 98 98 [facility] Respiratory Effort 1 1 [facility] Respiratory Rate 16 16 [facility] Pulse Assessment Method 4 4 [facility] Pulse Rate 67 67 [facility] pital Height 63.5 63.5 [facility] 100/54 100/54 [facility] Patient Treatment Plan of Care Planned Activity Planned Date Details Description Data Source (s) sennosides, RETIREMENT 8.6 MG Oral Tablet 08/15/2020 12:00:00 AM [facility], RETIREMENT 8.6 MG Oral Tablet 08/15/2020 12:00:00 AM [facility] Ondansetron 4 MG Oral Tablet 08/15/2020 12:00:00 AM [facility] Oxycodone Hydrochloride 5 MG Oral Tablet 08/15/2020 12:00:00 AM [facility] Magnesium Hydroxide 80 MG/ML Oral Suspension 08/14/2020 10:00:00 PM [facility] ondansetron (ZOFRAN) injection 4 mg 08/14/2020 02:32:44 PM [facility], RETIREMENT 8.6 MG Oral Tablet 08/14/2020 02:32:43 PM [facility], RETIREMENT 35.2 MG/ML Oral Solution 08/14/2020 02:32:43 PM [facility] Bisacodyl 10 MG Rectal Suppository 08/14/2020 02:32:42 PM [facility] Oxycodone Hydrochloride 5 MG Oral Tablet 08/14/2020 11:40:51 AM [facility] Ethinyl Estradiol 0.035 MG / norgestimate 0.25 MG Oral Tablet 06/16/2020 12:00:00 AM EST [facility] Methylphenidate HCl ER 36 MG Oral Tablet Extended Rele ase 24 Hour 02/25/2019 12:00:00 AM EDT [facility]
[2021-04-23] MEDS ORDERED: PSEUDOEPHEDRINE 30 MG TAB PO STA (14:59)
[2021-04-23] MEDS ORDERED: NAPROXEN 250 MG TAB PO ONE (15:00)
[2021-04-23] MEDS ORDERED: MAGIC MOUTHWASH *ED ONLY* 5ML ORAL SYRINGE SS ONE (15:00)
[2021-04-23] MEDS ORDERED: FLON1SPR NARES (15:52)
[2021-04-23] MEDS ORDERED: NAPR-837 PO (15:52)
[2021-04-23] MEDS ORDERED: MAGICMW SSP (15:52)
[2021-04-23] MEDS ORDERED: PSEU120T19 PO (15:52)
--- NOTE | 2021-04-23 16:01 | REP ---
INDICATION: cough, sob. COMPARISON: None. TECHNIQUE: Portable FINDINGS: The technique utilized in obtaining the radiograph has magnified the cardiac silhouette and accentuated the interstitial markings. The superior mediastinal structures are midline. The cardiac silhouette is unremarkable in size, shape, and position. The diaphragmatic surfaces of the lungs are regular, and the costophrenic angles are clear. The pulmonary lucero are clear. The imaged osseous structures are intact. IMPRESSION: There is no acute cardiopulmonary disease. <Electronically signed by Ian Lockhart > 04/23/21 0523
--- OUTSIDE RECORDS SUMMARY | 2021-04-23 16:03 | CCD ---
Author Author [facility] Organization [facility] Address Unknown Phone Unavailable Care Team Providers Care Dry Primer Powder Blender Name Role Phone MARC COBB MD Unavailable [...] Unavailable Unavailable MARC COBB MD Unavailable Unavailable [facility] COBB MD Unavailable Unavailable MARC COBB MD [...] K Adry PA Unavailable Unavailable Sandor SAGE EVENT COORDINATOR Unavailable Unavailable LAROCK, J CHIQUITA EVENT COORDINATOR Unavailable Unavailable LAROCK, J CHIQUITA EVENT COORDINATOR Unavailable Unavailable LAROCK, J CHIQUITA EVENT COORDINATOR Unavailable Unavailable LAROCK, J CHIQUITA EVENT COORDINATOR Unavailable Unavailable LAROCK, J CHIQUITA EVENT COORDINATOR Unavailable Unavailable LAROCK, J CHIQUITA EVENT COORDINATOR Unavailable Unavailable LAROCK, J CHIQUITA EVENT COORDINATOR Unavailable Unavailable LAROCK, J CHIQUITA EVENT COORDINATOR Unavailable Unavailable LAROCK, J CHIQUITA EVENT COORDINATOR Unavailable Unavailable LAROCK, J CHIQUITA EVENT COORDINATOR Unavailable Unavailable LAROCK, J CHIQUITA EVENT COORDINATOR Unavailable Unavailable LAROCK, J CHIQUITA EVENT COORDINATOR Unavailable Unavailable LAROCK, J CHIQUITA EVENT COORDINATOR Unavailable Unavailable LAROCK, J CHIQUITA EVENT COORDINATOR Unavailable Unavailable LAROCK, J CHIQUITA EVENT COORDINATOR Unavailable Unavailable LAROCK, J CHIQUITA EVENT COORDINATOR Unavailable Unavailable LAROCK, J CHIQUITA EVENT COORDINATOR Unavailable Unavailable LAROCK, J CHIQUITA EVENT COORDINATOR Unavailable Unavailable LAROCK, J CHIQUITA EVENT COORDINATOR Unavailable Unavailable LAROCK, J CHIQUITA EVENT COORDINATOR Unavailable Unavailable LAROCK, J CHIQUITA EVENT COORDINATOR Unavailable Unavailable Maria C Germán Torrez, L TRIAL CONSULTANT-C TRIAL CONSULTANT Unavailable Unavailable Maria C L Lore, L TRIAL CONSULTANT-C TRIAL CONSULTANT Unavailable Unavailable DASHA, A EDDIE PA Unavailable [...] M Cirilo PA Unavailable Unavailable Pugh, M Criilo PA Unavailable Unavailable Pugh, M Cirilo PA [...] M Cirilo PA Unavailable Unavailable Pugh, M Ciriol PA Unavailable Unavailable Pugh, M Cirilo PA [...] EDDIE CRAWFORD Unavailable Unavailable Luis Morley, F TRIAL CONSULTANT TRIAL CONSULTANT Unavailable Unavailable Luis Morley F TRIAL CONSULTANT TRIAL CONSULTANT Unavailable Unavailable Germán Pugh MD Unavailable Unavailable [...] C Flor Unavailable Unavailable SWINWOOD, MARIA C EVENT COORDINATOR Unavailable Unavailable SWINWOOD, MARIA C EVENT COORDINATOR Unavailable Unavailable SWINWOOD, MARIA C EVENT COORDINATOR Unavailable Unavailable SWINWOOD, MRAIA C EVENT COORDINATOR Unavailable Unavailable SWINWOOD, MARIA C EVENT COORDINATOR Unavailable Unavailable SWINWOOD, MARIA C EVENT COORDINATOR Unavailable Unavailable SWINWOOD, MARIA C EVENT COORDINATOR Unavailable Unavailable SWINWOOD, MARIA C EVENT COORDINATOR Unavailable Unavailable SWINWOOD, MARIA C EVENT COORDINATOR Unavailable Unavailable SWINWOOD, MARIA C EVENT COORDINATOR Unavailable Unavailable SWINWOOD, MARIA C EVENT COORDINATOR Unavailable Unavailable SWINWOOD, MARIA C EVENT COORDINATOR Unavailable Unavailable SWINWOOD, MARIA C EVENT COORDINATOR Unavailable Unavailable SWINWOOD, MARIA C EVENT COORDINATOR Unavailable Unavailable SWINWOOD, MARIA C EVENT COORDINATOR Unavailable Unavailable SWINWOOD, MARIA C EVENT COORDINATOR Unavailable Unavailable SWINWOOD, MARIA C EVENT COORDINATOR Unavailable Unavailable SWINWOOD, MARIA C EVENT COORDINATOR Unavailable Unavailable SWINWOOD, MARIA C EVENT COORDINATOR Unavailable Unavailable SWINWOOD, MARIA C EVENT COORDINATOR Unavailable Unavailable SWINWOOD, MARIA C EVENT COORDINATOR Unavailable Unavailable MARAVEGIAS, N PAYAL NEWMAN Unavailable [...] Fish, Mumtaz Hopkins MD Unavailable Unavailable Fish, Mumatz Hopkins MD Unavailable Unavailable Fish, Mumtaz Hopkins [...] Unavailable Unavailable GALGANO, EDDIE NEWMAN Unavailable Unavailable Rincon, F Ant PA Unavailable Unavailable Rincon, F Ant PA Unavailable Unavailable Rosamaria, F Ant PA Unavailable Unavailable Rosamaria, F Ant PA Unavailable Unavailable Rosamaria, F Ant PA Unavailable Unavailable Rincon, F Ant PA Unavailable Unavailable Rosamaria, F Ant PA Unavailable Unavailable Rosamaria, F Ant PA Unavailable Unavailable Rincon, F Ant PA Unavailable Unavailable Rosamaria, F [...] MCELHERAN, EDDIE PA Unavailable Unavailable ZEBill MENENDEZ TRIAL CONSULTANT Unavailable Unavailable ZEGIGermán, Bill MUNSON TRIAL CONSULTANT Unavailable Unavailable ZEGIL, Bill JEIMY TRIAL CONSULTANT Unavailable Unavailable Elisabeth, L Lucila PA Unavailable [...] Unavailable ANDRES, G EDWARD RPA Unavailable Unavailable ANDERS, G [...] Unavailable ANDERS, G EDWARD RPA Unavailable Unavailable UNKNOWN Unavailable Unavailable Byrd, M Yuliet EVENT COORDINATOR Unavailable Unavailable Byrd, M Yuliet EVENT COORDINATOR Unavailable Unavailable Byrd, M Yuliet EVENT COORDINATOR Unavailable Unavailable Byrd, M Yuliet EVENT COORDINATOR Unavailable Unavailable Byrd, M Yuliet EVENT COORDINATOR Unavailable Unavailable Byrd, M Yuliet EVENT COORDINATOR Unavailable Unavailable Byrd, M Yuliet EVENT COORDINATOR Unavailable Unavailable Byrd, M Yuliet EVENT COORDINATOR Unavailable Unavailable Byrd, M Yuliet EVENT COORDINATOR Unavailable Unavailable Byrd, M Yuliet EVENT COORDINATOR Unavailable Unavailable Byrd, M Yuliet EVENT COORDINATOR Unavailable Unavailable Byrd, M Yuliet EVENT COORDINATOR Unavailable Unavailable Byrd, M Yuliet EVENT COORDINATOR Unavailable Unavailable Byrd, M Yuliet EVENT COORDINATOR Unavailable Unavailable Byrd, M Yuliet EVENT COORDINATOR Unavailable Unavailable Byrd, M Yuliet EVENT COORDINATOR Unavailable Unavailable Byrd, M Yuliet EVENT COORDINATOR Unavailable Unavailable Byrd, M Yuliet EVENT COORDINATOR Unavailable Unavailable Byrd, M Yuliet EVENT COORDINATOR Unavailable Unavailable Byrd, M Yuliet EVENT COORDINATOR Unavailable Unavailable Byrd, M Yuliet EVENT COORDINATOR Unavailable Unavailable Byrd, M Yuliet EVENT COORDINATOR Unavailable Unavailable Byrd, M Yuliet EVENT COORDINATOR Unavailable Unavailable Byrd, M Yuliet EVENT COORDINATOR Unavailable Unavailable Byrd, M Yuliet EVENT COORDINATOR Unavailable Unavailable Byrd, M Yuliet EVENT COORDINATOR Unavailable Unavailable Byrd, M Yuliet EVENT COORDINATOR Unavailable Unavailable Byrd, M Yuliet EVENT COORDINATOR Unavailable Unavailable Byrd, M Yuliet EVENT COORDINATOR Unavailable Unavailable Byrd, M Yuliet EVENT COORDINATOR Unavailable Unavailable Byrd, M Yuliet EVENT COORDINATOR Unavailable Unavailable Byrd, M Yuliet EVENT COORDINATOR Unavailable Unavailable BROWN, GERMAN LUIS EVENT COORDINATOR Unavailable Unavailable BROWN, GERMAN LUIS EVENT COORDINATOR Unavailable Unavailable BROWN, GERMAN LUIS EVENT COORDINATOR Unavailable Unavailable BROWN, GERMAN LUIS EVENT COORDINATOR Unavailable Unavailable BROWN, GERMAN LUIS EVENT COORDINATOR Unavailable Unavailable BROWN, GERMAN LUIS EVENT COORDINATOR Unavailable Unavailable BROWN, GERMAN LUIS EVENT COORDINATOR Unavailable Unavailable BROWN, GERMAN LUIS EVENT COORDINATOR Unavailable Unavailable BROWN, GERMAN LUIS EVENT COORDINATOR Unavailable Unavailable BROWN, GERMAN LUIS EVENT COORDINATOR Unavailable Unavailable BROWN, GERMAN LUIS EVENT COORDINATOR Unavailable Unavailable BROWN, GERMAN LUIS EVENT COORDINATOR Unavailable Unavailable BROWN, GERMAN LUIS EVENT COORDINATOR Unavailable Unavailable BROWN, GERMAN LUIS EVENT COORDINATOR Unavailable Unavailable BROWN, GERMAN LUIS EVENT COORDINATOR Unavailable Unavailable BROWN, GERMAN LUIS EVENT COORDINATOR Unavailable Unavailable BROWN, GERMAN LUIS EVENT COORDINATOR Unavailable Unavailable BROWN, GERMAN LUIS EVENT COORDINATOR Unavailable Unavailable BROWN, GERMAN LUIS EVENT COORDINATOR Unavailable Unavailable BROWN, GERMAN LUIS EVENT COORDINATOR Unavailable Unavailable BROWN, GERMAN LUIS EVENT COORDINATOR Unavailable Unavailable BROWN, GERMAN LUIS EVENT COORDINATOR Unavailable Unavailable BROWN, GERMAN LUIS EVENT COORDINATOR Unavailable Unavailable BROWN, GERMAN LUIS EVENT COORDINATOR Unavailable Unavailable BROWN, GERMAN LUIS EVENT COORDINATOR Unavailable Unavailable BROWN, GERMAN LUIS EVENT COORDINATOR Unavailable Unavailable BROWN, GERMAN LUIS EVENT COORDINATOR Unavailable Unavailable BROWN, GERMAN LUIS EVENT COORDINATOR Unavailable Unavailable BROWN, GERMAN LUIS EVENT COORDINATOR Unavailable Unavailable BROWN, GERMAN LUIS EVENT COORDINATOR Unavailable Unavailable BROWN, GERMAN LUIS EVENT COORDINATOR Unavailable Unavailable BROWN, GERMAN LUIS EVENT COORDINATOR Unavailable Unavailable BROWN, GERMAN LUIS EVENT COORDINATOR Unavailable Unavailable BROWN, GERMAN LUIS EVENT COORDINATOR Unavailable Unavailable BROWN, GERMAN LUIS EVENT COORDINATOR Unavailable Unavailable BROWN, GERMAN LUIS EVENT COORDINATOR Unavailable Unavailable BROWN, GERMAN LUIS EVENT COORDINATOR Unavailable Unavailable BROWN, GERMAN LUIS EVENT COORDINATOR Unavailable Unavailable Re-disclosure Warning The records that [...] is protected by Article 27-F of the [facility] Public Health law. If you continue you may have access to information: Regarding HIV / AIDS; Provided by facilities licensed or operated by the [facility] Office of Mental Health; or Provided by the [facility] Office for People With Developmental Disabilities. If such information is present, then the following [facility] mandated warning applies: This information has been [...] law may result in a fine or senior care sentence or both. A general authorization for the release of medical or other information is NOT sufficient authorization for further disc losure. Allergies and Adverse Reactions Type Description Substance Reaction Status Data Source(s ) Propensity to adverse reactions PENICILLINS Penicillin Hives [facility] Family History Family Member Name Family Member Gender Family Member Status Date o f Status Description Data Source(s) Unknown Unknown Problem [facility] ([facility] maternal grandmother Encounters Encounter Providers Location Date Indications Data Source(s ) Outpatient 03/27/2021 01:40:11 PM EDT - 021 02:02:07 PM EDT [facility] ([facility]) Outpatient Attender: UNKNOWN CPSCAORT-LABEJN 02/11/2021 07:58:[address] [facility] Outpatient Attender: Lucila SILVER ED-LABGH 0 02/11/2021 02:46:00 PM EDT - 02/11/2021 02:47:00 PM EDT [id number] [facility] R1084 F419 [id number] [id number] Patient discharged. Outpatient Attender: CHIQUITA SAGE NP 01/11 12:56:43 PM EDT - 02/07/2021 01:53:10 PM EDT [facility] ([facility] ) Outpatient Attender: Cirilo Pugh PAConsultant: EDDIE LAUREN 01/18/2021 10:22:00 AM EDT - 01/18/2021 10:22:00 AM EDT [facility] Outpatient Attender: Adry Hill PAConsultant: EDDIE WHARTON 01/18/2021 09:44:00 AM EDT - 01/18/2021 10:45:00 AM EDT [facility] OFFICE OUTPATIENT VISIT 15 MINUTES Attender: EDDIE SILVER Physical Therapy 01/01/2021 05:15:00 PM EDT [facility] ([facility]) OFFICE OUTPATIENT VISIT 15 MINUTES Attender: EDDIE SILVER Physical Therapy 12/07/2020 05:15:00 PM EDT [facility] ([facility]) Outpatient Attender: Sandeep Hussein MD Physical Therapy 11/23/2020 0 2:45:00 PM EDT [facility] ([facility]) Outpatient Attender: RENA ANDERS RPA 11/17 02:54:30 PM EDT - 11/17/2020 04:06:46 PM EDT [facility] ([facility] ) Outpatient Referrer: EDDIE CRAWFORD MD 10/13/2020 1 2:23:00 PM EDT Spondylolisthesis, lumbosacral region [facility] Spondylolisthesis, lumbosacral region Outpatient Attender: EDDIE CRAWFORD MD [id number] 09/2020 12:00:00 AM EDT - 10/13/2020 01:19:53 PM EDT [facility] Outpatient Attender: SHEILA Torrez FNPAtten veronica: MARIA C TORREZ NP CPSCAORT-CPSCNOBG 10/09/2020 08:50:00 AM EDT - 10/09/2020 08:51:[address] [facility] A74.9 Patient discharged. Outpatient Attender: EDDIE CRAWFORD MD [id number] 09/01/2020 1 2:00:00 AM EDT Spondylolisthesis, lumbosacral region [facility] Spondylolisthesis, lumbosacral region Inpatient Attender: EDDIE CRAWFORD MDAdmitter: EDDIE LAUREN MD [id number] 08/14/2020 12:00:00 AM EST - 08/15/2020 12:51:00 PM EST Illness, unspecified [facility] Illness, unspecified Patient discharged. Outpatient Attender: EDDIE CRAWFORD MD Attender: ALEKSANDER EMReferrer: EDDIE CRAWFORD MD [id number] 08/10/2020 12:00:00 AM EST Contact with and (suspected) exposure to other viral communicable diseases [facility] Contact with and (suspected) exposure to other viral communicable diseases Outpatient Referrer: EDDIE CRAWFORD MD 08/10/2020 1 2:00:00 AM EST Spondylolysis, site unspecified [facility] Spondylolysis, site unspecified Outpatient Attender: Prerna Pugh MDReferrer: EDDIE Flor MD [id number] 08/10/2020 12:00:[address] [facility] pretest Outpatient Attender: UNKNOWN CPSCAORT-LABEJN 07/29/2020 07:41:00 PM E [facility] Outpatient Attender: MONTSERRAT Morley FNPAttender: LUIS MORLEY NP ED-LABPNP 07/29/2020 05:36:00 PM EST - 07/29/2020 05:37:00 PM EST 113 [facility] Z113 Patient discharged. Outpatient Attender: LUIS MORLEY NP CPSCAORT-CPSGNOBG 07/13 10:44:00 AM EST - 07/29/2020 10:45:00 AM EST [facility] Patient discharged. Outpatient Attender: EDDIE CRAWFORD MD 07/21/2020 12:00:0 0 AM [facility] Outpatient 06/30/2020 12:00:00 AM [facility] Outpatient Attender: Flor Hill 06/30/2020 12:00:00 AM [facility] Outpatient Attender: EDDIE CRAWFORD MD ED-IMAG 10:31:00 AM EST - 05/27/2020 10:32:00 AM EST M43.00-SPONDYLOLISTHESIS [facility] M43.00-SPONDYLOLISTHESIS Patient discharged. Outpatient Attender: EDDIE CRAWFORD MD [id number] 05/19/2020 1 2:00:00 AM EST Spondylolysis, site unspecified [facility] Spondylolysis, site unspecified Outpatient Attender: uYliet Byrd NP ED-IMAG 020 09:32:00 AM EST - 05/15/2020 09:33:00 AM EST M43.17 [facility] M43.17 Patient discharged. Unknown [address] [facility] [address] 05/12/2020 12:00:00 AM EST eCW1 ([facility]) Outpatient [address] [facility] [address] 05/04/2020 12:00:00 AM EST eCW1 ([facility]) Outpatient Attender: EDDIE CRAWFORD MD 04/23/2020 12:00:0 0 AM [facility] Outpatient Referrer: EDDIE CRAWFORD MD 04/21/2020 1 0:01:49 AM EST Spondylolysis, site unspecified [facility] Spondylolysis, site unspecified Outpatient Attender: EDDIE CRAWFORD MD [id number] 04/21/2020 12:00:0 0 AM [facility] Outpatient Attender: EDDIE CRAWFORD MD 04/21/2020 12:00:0 0 AM [facility] Outpatient Attender: Lucila SILVER ED-LABPNP 04/14/2020 04:23:00 PM EST EXPOSURE [facility] EXPOSURE Outpatient Attender: Lucila SILVER CPSCAORT-LABEJN 1 06/14/2019 04:23:00 PM EST COVID [facility]CREENING [facility] COVID SCREENING Outpatient Attender: Lucila SILVER ED-LABPNP 0 01/31/2020 10:17:00 AM EDT - 01/31/2020 10:18:00 AM EDT RETURNING STUDENT [facility] RETURNING STUDENT Patient discharged. Outpatient Attender: Lucila SILVER ED-LAB 0 12/02/2019 07:57:00 AM EDT - 12/02/2019 07:58:00 AM EDT [id number] E669 R638 [facility] [id number] [id number] R638 Patient discharged. Emergency Attender: EDDIE SILVER ED-ED 04/05 12:39:00 PM EDT - 04/05/2019 03:25:00 PM EDT FLANK PAIN [facility] FLANK PAIN Patient discharged. Outpatient Attender: Lucila SILVER ED-IMAGH 0 08/28/2018 01:32:00 PM EDT - 08/28/2018 01:33:00 PM EDT [id number] [facility] [id number] Emergency Attender: Ant SILVER ED-ED 09:58:00 AM EDT - 03/31/2017 12:43:00 PM EDT RT SIDED PAIN N/V [facility] RT SIDED PAIN N/V Emergency Attender: JEIMY KENNEDY TRIAL CONSULTANT ED-ED 02/11 09:34:00 AM EDT - 03/06/2017 10:28:00 AM EDT wrist injury [facility] wrist injury R Attender: DOMINIQUE SILVER ED-PRSPT 09/29 03:12:00 PM EDT - 10/09/2016 12:01:00 AM EDT LOW BACK PAIN [facility] LOW BACK PAIN Outpatient Attender: DOMINIQUE SILVER ED-IMAGH 09/21 08:27:00 AM EDT - 09/21/2016 08:28:00 AM EDT LUMBAGO, SCIAITCA, ABNORMAL XRAY [facility] LUMBAGO, SCIAITCA, ABNORMAL XRAY Outpatient Attender: DOMINIQUE SILVER ED-IMAGH 09/15 09:07:00 AM EDT - 09/15/2016 09:08:00 AM EDT M54.6 [facility] M54.6 Outpatient Attender: MARC COBB MD ED-LAB 06/03/2016 09:17:00 AM EST - 06/03/2016 09:18:00 AM EST SCREENING [facility] SCREENING Emergency Attender: PAYAL VARGAS MD ED-ED 1 06/27/2015 03:42:00 PM EST - 04/27/2016 04:26:00 PM EST R HAND INJURY [facility] R HAND INJURY Outpatient Attender: DOMINIQUE SILVER ED-LAB 04/02 08:03:00 AM EDT - 04/02/2016 08:04:00 AM EDT T78.2XXD [facility] T78.2XXD Outpatient Attender: DOMINIQUE SILVER EDRESP 04/01 09:09:00 AM EDT - 04/01/2016 09:10:00 AM EDT [id number] [facility] [id number] Emergency Attender: JEIMY KENNEDY [facility] ED-ED 03/12 03:32:00 PM EDT - 03/28/2016 05:39:00 PM EDT bee sting [facility] bee sting Emergency Attender: EDDIE SILVER ED-ED 02/16 04:21:00 PM EDT - 02/17/2016 08:21:00 PM EDT BEE STING [facility] BEE STING Emergency Attender: PAYAL VARGAS MD ED-ED 0 10/21/2015 03:13:00 PM EDT - 10/21/2015 04:20:00 PM EDT bee sting; epi pen used [facility] bee sting; epi pen used Outpatient Attender: DOMINIQUE SILVER ED-LAB 08/10 01:08:00 PM EST - 08/11/2015 01:09:00 PM EST N946 [facility] N946 Immunizations Vaccine Date Status Description Data Source(s) COVID-19 VACCINE Pfizer 02/23/2021 12:00:00 AM EDT completed [facility] Vaccine Series Complete: NOThis Data was Submitted to [facility] [employer]. Medications Medication Brand Name Start Date Product Form Dose Route Admi nistrative Instructions Pharmacy Instructions Status Indications Reaction Description Data Source(s) buspirone hydrochloride 5 MG Oral Tablet BUSPIRONE HCL 02/11/2021 12:00:00 AM EDT tablet 60 TAKE ONE TABLET BY MOUTH TWI CE A DAY TAKE ONE TABLET BY MOUTH TWICE A DAY SOLD: 02/12/2021 Bril[facility] Cephalexin 500 MG Oral Capsule CEPHALEXIN 09/08/2020 12:00:00 AM EDT capsule 40 TAKE 1 CAPSULE BY MOUTH 4 TIMES A DAY FOR 10 DAYS TAKE 1 CAPSULE BY MOUTH 4 TIMES A DAY FOR 10 DAYS SOLD: 09/08/2020 [facility] Ondansetron 4 MG Oral Tablet Ondansetron HCl 4 MG Oral Tablet (ZOFRAN) Ondansetron HCl 4 MG Oral Tablet (ZOFRAN) 08/15/2020 12:00:00 AM EST 4 mg Oral active Take 1 tablet by mouth every 8 (eight) hours as needed for up to 7 days [facility] sennosides, CUSTODIAL 8.6 MG Oral Tablet Senna 8.6 MG Oral T ablet Senna 8.6 MG Oral Tablet 08/15/2020 12:00:00 AM EST 2 {tbl} Oral active Take 2 tablets by mouth nightly as needed [facility] sennosides, CUSTODIAL 8.6 MG Oral Tablet Sennosides 8.6 MG O ral Tablet (SENOKOT) Sennosides 8.6 MG Oral Tablet (SENOKOT) 08/15/2020 12:00:00 AM EST 8.6 mg Oral active Take 1 tablet by salty th daily [facility] 5 mg 08/15/2020 12:00:00 AM EST tablet 18 TAKE 1 TABLET BY MOUTH 4 TIMES DAILY NEEDED FOR PAIN MAX = 6 TABS/DAY TAKE 1 TABLET BY MOUTH 4 TIMES DAILY NEEDED FOR PAIN MAX = 6 TABS/DAY SOLD: 08/15/2020 [facility] Oxycodone Hydrochloride 5 MG Oral Tablet oxyCODONE HCl 5 MG Oral Tablet (ROXICODONE) oxyCODONE HCl 5 MG Oral Tablet (ROXICODONE) 08/15/2020 12:00:00 AM EST 5 mg Oral active Take 1 t ablet by mouth every 4 (four) hours as needed for up to 3 days, Max Daily Dose: 30 mg [facility] 4 mg 08/15/2020 12:00:00 AM EST tablet [...] creatinine > 2 notify provider before administering.
[facility] Medication administered onsite Clindamycin 18 MG/ML Injectable Solution clindamycin ( CLEOCIN) IVPB 900 mg clindamycin (CLEOCIN) IVPB 900 mg 08/14/2020 04:00:00 PM EST 900 mg Intravenous completed 900 mg, Intra venous, at 100 mL/hr, Every 8 hours, First dose on Mon08/14/20 at 1600, For 16 hours
Discouraged Uses: Cellulitis
[facility] Medication administered onsite ondansetron (ZOFRAN) injection 4 [...] able to tolerate PO.
[Order 2 End] [facility] Medication administered onsite sennosides, CUSTODIAL 8.6 MG Oral Tablet senna tablet 2 tablet sen na tablet 2 tablet 08/14/2020 02:32:43 PM EST 2 {tbl} Oral active 2 tablet, Oral, Nightly PRN, Constipation, Starting Mon08/14/20 at 1432, For 30 days [facility] Medication administered onsite sennosides, CUSTODIAL 35.2 MG/ML Oral Solution senna (SENOKO T) syrup 10 mL senna (SENOKOT) syrup 10 mL 08/14/2020 02:32:43 PM EST 10 mL Oral active 10 mL, Oral, Nightly PRN, Constipation, Starting Mon08/14/20 at 1432, For 30 days [facility] Medication administered onsite fentaNYL (SUBLIMAZE) (PF) injection 25 mcg [id number] 08/14/2020 02:32:42 PM EST 25 ug Intravenous active 25 m cg, Intravenous, Every 2 hours PRN, Other, breakthrough pain, Starting Mon08/14/20 at 1432, For 3 days [facility] Medication administered onsite Acetaminophen 325 MG Oral [...] mg from all sources in 24 hours.
[facility] Medication administered onsite Bisacodyl 10 MG Rectal Suppository bisacodyl (DULCOLAX ) suppository 10 mg bisacodyl (DULCOLAX) suppository 10 mg 08/14/2020 02:32:42 PM EST 10 mg Rectal active 10 mg, Rectal, Every 72 hours PRN, Constipation, Starting Mon08/14/20 at 1432, For 30 days
Hold if patient has had BM within the past 2 days.
[facility] Medication administered onsite NaCl infusion 0.9 % [id number] 08/14/2020 11:45:00 AM EST Intravenous active at 100 mL/hr, Intrav enous, Continuous, Starting Mon08/14/20 at 1145, For 30 days
Hold for good PO intake.
[facility] Medication administered onsite Oxycodone Hydrochloride 5 MG Oral Tablet oxyCODONE (ROXICODONE) immediate release tablet 5 mg oxyCODONE (ROXICODONE) immediate release tablet 5 mg 08/14/2020 11:40:51 AM EST 5 mg Oral active 5 mg, Oral, Every 4 hours PRN, Moderate Pain (Pain Scale Score 4-6), Starting Mon08/14/20 at 1140, For 3 days
If no HYPERION ADMINISTRATOR or when HYPERION ADMINISTRATOR has been D/Cd.
Oxycodone immediate release is limited to 10 mg per dose. Higher doses ( only) require Pain Service consultation and approval.
[facility] Medication administered onsite Oxycodone Hydrochloride 5 MG Oral Tablet oxyCODONE (ROXICODONE) immediate release tablet 10 mg oxyCODONE (ROXICODONE) immediate release tablet 10 mg 08/14/2020 11:40:51 AM EST 10 mg Oral active 10 mg, Oral, Every 4 hours PRN, Severe Pain (Pain Scale Score 7-10), Starting Mon08/14/20 at 1140, For 3 days
If no HYPERION ADMINISTRATOR or when HYPERION ADMINISTRATOR has been D/Cd.
Oxycodone immediate release is limited to 10 mg per dose. Higher doses ( only) require Pain Service consultation and approval.
[facility] Medication administered onsite fentaNYL (SUBLIMAZE) (PF) injection 25 mcg [id number] 08/14/2020 11:09:38 AM EST 25 ug Intravenous aborted 25 m cg, Intravenous, Every 5 min PRN, Severe Pain (Pain Scale Score 7-10), Starting Mon08/14/20 at 1109, For 10 doses, Recovery [facility] Medication administered onsite gabapentin 300 MG Oral Capsule gabapentin (NEURONTIN) capsule 300 mg gabapentin (NEURONTIN) capsule 300 mg 08/14/2020 07:15:00 AM EST 300 mg Oral completed 300 mg, Oral, Once, Mon08/14/20 a t 0715, For 1 dose, Pre-op [facility] Medication administered onsite Acetaminophen 325 MG Oral Tablet acetaminophen (TYLENO L) tablet 975 mg acetaminophen (TYLENOL) tablet 975 mg 08/14/2020 07:15:00 AM EST 97 5 mg Oral completed 975 mg, Oral, O nce, Mon08/14/20 at 0715, For 1 dose
Maximum daily dose of acetaminophen is 3,000 mg from all sources in 24 hours.
Pre-op [facility] Medication administered onsite sodium chloride (preservative free) 0.9 % flush 3 mL 04029-0 86-00 08/14/2020 05:59:58 AM EST 3 mL Intravenous aborted 3 mL, Intravenous, Every 8 hours, First dose on Mon08/14/20 at 0600, For 30 days, Pre-op
Saline Lock. Flush Q8H and after each use to [facility].
[facility] Medication administered onsite 500 mg 08/03/2020 12:00:00 [...] Take 1 tablet b y mouth daily [facility] 0.25-35 mg-mcg 03/23/2020 12:00:00 AM EDT tablet [...] MG Oral Tablet Extended Release 24 Hour [id number] 02/25/2019 12:00:[address] 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 [place] WorkComp Health Claim [id number] Employee [id number] [employer] Blue Cross and Blue Shield - [place] Blue Cross/B lue Shield [id number] Parent [id number] [employer] [place] Blue Cross/B lue Shield [id number] Parent [id number] [place] [id number] CHILD [id number] [employer] [id number] CHILD [id number] EXCELLUS BC-BS PPO 306 [id number] SP [id number] BCBS [place] 210/710 [id number] SP [id number] [place] 210/710 [id number] SP [id number] [employer] BCBS Health Maintenance Organization (HMO) [id number] Family Dependent [id number] BLUE CROSS -O/P [id number] 19 [id number] BLUE CROSS -O/P [id number] 1 9 [id number] [employer] [place] [id number] KAVYA [id number] [employer] 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 INC ALDO WILSON ALEESHA EX[employer] [id number] KAVYA [id number] EXCELLUS [place] BLUEIELD BS [id number] BLUE CROSS BLUE SHIELD -O/P [id number] [employer] [id number] CHILD [id number] Problems, Conditions, and Diagnoses Code Display Name Description Problem Type Effective Dates Data Source(s) Z68.30 Body mass index (BMI) 30.0-30.9, adult B LAZ MASS INDEX [BMI]30.0-30.9, ADULT Diagnosis 02/11/2021 02:46:00 PM EDT [facility] Z86.2 Personal history of diseases of the blood and blood-forming organs and certain disorders involving the immune mechanism PRSNL HISTORY OF DIS OF THE BLD/BLD-FORM ORG/IMMUN MECHNSM Diagnosis [facility] F[facility].9 Anxiety disorder, unspecified ANXIETY DISORDER, UNSPEC IFIED Diagnosis 02/11/2021 02:46:00 PM [facility] R10.84 Generalized abdominal pain GENERALIZED ABDOMINAL PAIN Diagnosis 02/11/2021 02:46:00 PM [facility] Z981 Arthrodesis status Arthrodesis status Diagnosis 10:22:00 AM [facility] M4317 Spondylolisthesis, lumbosacral region Sp ondylolisthesis, lumbosacral region Diagnosis 01/18/2021 10:22:00 AM [facility] M4310 Spondylolisthesis, site unspecified Spondylolist hesis, site unspecified Diagnosis 01/18/2021 09:44:00 AM [facility] M4300 Spondylolysis, site unspecified Spondylolysis, site un specified Diagnosis 01/18/2021 09:44:00 AM [facility] M43.17 Spondylolisthesis, lumbosacral region Sp ondylolisthesis, lumbosacral region Diagnosis 08/14/2020 11:18:33 AM [facility] R69 Illness, unspecified Illness, unspecified Diagnosis 08/14/2020 05:31:00 AM [facility] L5 pars defects L5 pars defects Diagnosis 08/14/2020 05:3 1:00 AM [facility] Z20.828 Contact with and (suspected) exposure to other viral communicable diseases Contact with and (suspected) exposure to other viral communicable diseases Diagnosis 08/10/2020 10:42:44 AM [facility] pretest pretest Diagnosis 08/10/2020 12:00:00 AM [facility] Z11.3 Encounter for screening for infections with a predominantly sexual mode of transmission ENCNTR SCREEN FOR INFECTIONS W SEXL MODE OF TRANSMISS Diagno sis 07/29/2020 05:36:00 PM [facility] Z11.3 Encounter for screening for infections with a predominantly sexual mode of transmission ENCNTR SCREEN FOR INFECTIONS W SEXL MODE OF TRANSMISS Diagno sis 07/29/2020 10:44:00 AM [facility] Z30.013 Encounter for initial prescription of in jectable contraceptive ENCOUNTER FOR INITIAL PRESCRIPTION OF INJECTABLE CONTRACEP Diagnosis 07/13 10:44:00 AM [facility] M43.06 Spondylolysis, lumbar region SPONDYLOLYSIS, LUMBAR REG ION Diagnosis 05/27/2020 10:31:00 AM [facility] M43.10 Spondylolisthesis, site unspecified Spondylolist hesis, site unspecified Diagnosis 05/26/2020 04:00:52 PM [facility] M43.00 Spondylolysis, site unspecified Spondylolysis, s ite unspecified Diagnosis 05/26/2020 04:00:52 PM [facility] M43.17 Spondylolisthesis, lumbosacral region SP ONDYLOLISTHESIS, LUMBOSACRAL REGION Diagnosis 05/15/2020 09:32:00 AM [facility] Bradley brenner Z20.828 Contact with and (suspected) exposure to other viral communicable diseases CONTACT W AND EXPOSURE TO OTH VIRAL COMMUNICABLE DISEASES Di agnosis 04/14/2020 04:23:00 PM [facility] M43.17 [id number] Spondylolisthesis at L5-S1 level Problem 05/04/2020 12:00:00 AM [facility] eCW1 ([facility]) Surgeries/Procedures Procedure Description Date Indications Data Source(s) 25 HYDROXY INCLUDES FRACTIONS IF PERFORMED VITAMIN D 25 HYDR OXY 02/11/2021 12:00:00 AM EDT [facility] CYANOCOBALAMIN VITAMIN B-12 VITAMIN B-12 02/11/2021 12:00:00 AM [facility] IRON BINDING CAPACITY IRON BINDING TEST 02/11/2021 12:00:00 AM [facility] IRON ASSAY OF IRON 02/11/2021 12:00:00 AM [facility] FERRITIN ASSAY OF FERRITIN 02/11/2021 12:00:00 AM [facility] OFFICE OUTPATIENT VISIT 15 MINUTES 01/01/2021 12:00:00 AM EDT [facility] ([facility]) OFFICE OUTPATIENT VISIT 15 MINUTES 12/07/2020 12:00:00 AM EDT [facility] ([facility]) OFFICE OUTPATIENT VISIT 15 MINUTES 12/07/2020 12:00:00 AM EDT [facility] ([facility]) OFFICE OUTPATIENT NEW 45 MINUTES 11/23/2020 12:00:00 A M EDT [facility] ([facility]) OFFICE OUTPATIENT NEW 45 MINUTES 11/23/2020 12:00:00 A M EDT [facility] ([facility]) XR SPINE-ENTIRE THORACIC AND LUMBAR- 2 OR 3 VIEW 7208 2 <td>XR SPINE-ENTIRE THORACIC AND LUMBAR- 2 OR 3 VIEW 50724</td><td>Routine</td><td>08/14/2020 1:07 PM EST</td><td></td><td> </td> 08/14/2020 01:07:47 PM EST [facility] RADEX SPINE LUMBOSACRAL 2/3 VIEWS <td>XR SPINE L-S 2-3 VIEWS PORT-OR 32713</td><td>Routine</td><td>08/14/2020 10:29 AM EST</td><td> Diagnosis unknown</td><td> </td> 08/14/2020 10:29:55 AM EST Diagnosis unknown [facility] Diagnosis unknown GONADOTROPIN CHORIONIC QUANTITATIVE <td>POCT ISTAT BHCG</td><td>Routine</td><td>08/14/2020 6:11 AM EST</td><td></td><td> </td> 08/14/2020 06:11:00 AM [facility] CONFIRMATORY TYPE <td>CONFIRMATORY TYPE</td><t d>Routine</td><td>08/14/2020 6:08 AM EST</td><td></td><td> </td> 08/14/2020 06:08:00 AM [facility] XR CHEST FRONTAL AND LATERAL 80193 <td>XR CHEST FRONTA L AND LATERAL 17449</td><td>Routine</td><td>08/10/2020 10:08 AM EST</td><td> Pars defect with spondylolisthesis</td><td> </td> 08/10/2020 10:08:07 AM EST Pars defect with spondylolisthesis [facility] Pars defect with spondylolisthesis IADNA NEISSERIA GONORRHOEAE AMPLIFIED PROBE TQ N.GONORRHOEAE DNA AMP PROB 07/29/2020 12:00:00 AM [facility] IADNA CHLAMYDIA TRACHOMATIS AMPLIFIED PROBE TQ CHYLMD TRACH DNA AMP PROBE 07/29/2020 12:00:00 AM [facility] outpatient clinic visit for assessment and ma dilcia of a patient Hospital Outpatient Clinic Visit 07/29/2020 12:00:00 AM [facility] THERAPEUTIC PROPHYLACTIC/DX INJECTION SUBQ/IM THER/PROPH/CASSIA G INJ SC/IM 07/29/2020 12:00:00 AM [facility] Injection, medroxyprogesterone acetate, 1 mg 12:00:[address] [facility] [address] LUMBAR SPINE W/O CONTRAST MATERIAL CT LUMBAR SPINE W/O DY E 05/27/2020 12:00:00 AM [facility] MRI SPINAL CANAL LUMBAR W/O CONTRAST MATERIAL MRI LUMBAR SPI NE W/O DYE 05/15/2020 12:00:00 AM [facility] [address] SARS-COV-2 COVID-19 AMP PRB 04/14/2020 12:00:00 AM [facility] Results ID Date Data Source [id number] 03/27/2021 02:15:00 PM EDT [facility] Name Value Range Interpretation Code Description Data Lashonda rce(s) Supporting Document(s) SARS-CoV-2 RNA Resp Ql RENEE+probe NOT DETECTED [facility] This lab was ordered by EDWARDO ospina and reported by EDWARDO Singh. ID Date Data Source [id number] 02/12/2021 01:27:00 AM EDT [facility] Name Value Range Interpretation Code Description Data Lashonda rce(s) Supporting Document(s) FESAT Iron result 77 ug/dL 37-170 Normal (applies to non-numeri c results) [facility] Test Performed By: [facility] [address] [place] [address] Director: Justen Pugh MD FESAT TIBC result 352 ug/dL 265-497 Normal (applies to non-numeri c results) [facility] Test Performed By: [facility] [address] [place] [address] Director: Justen Pugh MD FESAT %Iron Saturation result 12.0-55.0 No rmal (applies to non-numeric results) [facility] Test Performed By: [facility] [address] [place] [address] Director: Justen Pugh MD ID Date Data Source [id number] 02/12/2021 01:27:00 AM EDT [facility] Name Value Range Interpretation Code Description Data Lashonda rce(s) Supporting Document(s) Vitamin B12 result 145 pg/mL 193-986 [facility] Test Performed By: [facility] [address] [place] [address] Director: Justen Pugh MD ID Date Data Source [id number] 02/12/2021 01:27:00 AM EDT [facility] Name Value Range Interpretation Code Description Data Lashonda rce(s) Supporting Document(s) Ferritin result 19 ng/mL 6.2-137.0 Normal (applies to non-numeric results) [facility] Test Performed By: [facility] [address] [place] [address] Director: Justen Pugh MD ID Date Data Source [id number] 02/11/2021 10:26:00 PM EDT [facility] Value Range Interpretation Code Description Data Lashonda rce(s) Supporting Document(s) Iron FE Level 77 ug/dL 37-170 Normal (applies to non-numeric re sults) [facility] Test Performed By: [facility] [address] [place] [address] Director: Justen Pugh MD Total Iron Binding Capacity 352 ug/dL 265-497 Norm al (applies to non-numeric results) [facility] Test Performed By: [facility] [address] [place] [address] Director: Justen Pugh MD %Iron Saturation 12.0-55.0 Normal (applies to non-numeric results) [facility] Test Performed By: [facility] [address] [place] [address] Director: Justen Pugh MD ID Date Data Source [id number] 02/11/2021 10:26:00 PM EDT [facility] Value Range Interpretation Code Description Data Lashonda rce(s) Supporting Document(s) Vitamin B12 145 pg/mL 193-986 Below low normal [facility] Test Performed By: [facility] [address] [place] [address] Director: Justen Pugh MD ID Date Data Source [id number] 02/11/2021 10:26:00 PM EDT [facility] Value Range Interpretation Code Description Data Lashonda rce(s) Supporting Document(s) Ferritin 19 ng/mL 6.2-137.0 Normal (applies to non-numeric resul ts) [facility] Test Performed By: [facility] [address] [place] [address] Director: Justen Pugh MD ID Date Data Source [id number] 02/11/2021 04:34:00 PM EDT [facility] Name Value Range Interpretation Code Description Data Lashonda rce(s) Supporting Document(s) Vitamin D, Total 30.0-100.0 Below low normal [facility] ID Date Data Source [id number] 02/11/2021 04:09:00 PM EDT [facility] Name Value Range Interpretation Code Description Data Lashonda rce(s) Supporting Document(s) Sodium 144 mmol/L 136-145 Normal (applies to non-numeric resul ts) [facility] Potassium 3.5-5.1 Normal (applies to non-numeric resul ts) [facility] Chloride 107 mmol/L 98-107 Normal (applies to non-numeric resul ts) [facility] Carbon Dioxide CO2 21-32 Normal (applies to non-numer ic results) [facility] Anion Gap 5.0-16.0 Normal (applies to non-numeric resul ts) [facility] BUN 13 mg/dL 7-18 Normal (applies to non-numeric results) [facility] Creatinine,Serum 0.7-1.2 Normal (applies to non-numeric results) [facility] GFR >60 Normal (applies to non-numeric results) [facility] Glucose Level 96 mg/dL 60-99 Normal (applies to non-numeric re sults) [facility] Reference range is only applicable when patient is fasting Note the following drug interference: Sulfasalazine Sulfapyridine Can see falsely depressed Can see falsely elevated result with up to 17% results with up to 11% decrease in measurement increase in measurement Recommend patients be collected for this test prior to administration of either drug. Calcium 8.5-10.1 Normal (applies to non-numeric resul ts) [facility] Bilirubin,Total 0.1-1.9 Normal (applies to non-numeric results) [facility] SGOT(AST) 17 U/L 15-37 Normal (applies to non-numeric resul ts) [facility] Note the following drug interference: Sulfasalazine Sulfapyridine Can see falsely depressed Can see falsely elevated result with up to 10% results with up to 10% decrease in measurement increase in measurement Recommend patients be collected for this test prior to administration of either drug. SGPT(ALT) 31 U/L 12-78 Normal (applies to non-numeric resul ts) [facility] Note the following drug interference: Sulfasalazine Sulfapyridine Can see falsely depressed Can see falsely elevated result with up to 29% results with up to 10% decrease in measurement increase in measurement Recommend patients be collected for this test prior to administration of either drug. Alkaline Phosphatase 67 U/L 38-126 Normal (applies to non-num tomeka results) [facility] can increase Alkaline Phosp le vels up to 2 times the normal adult value. Normal values for children and adolescents are 2 to 3 times the normal adult value. Total Protein 6.0-8.2 Normal (applies to non-numeric re sults) [facility] Albumin Level 3.4-5.0 Normal (applies to non-numeric re sults) [facility] ID Date Data Source [id number] 02/11/2021 04:09:00 PM T [facility] Name Value Range Interpretation Code Description Data Lashonda rce(s) Supporting Document(s) Thyroid Stimulate Hormone TSH 0.358-3.74 No rmal (applies to non-numeric results) [facility] ID Date Data Source [id number] 02/11/2021 04:09:00 PM [facility] Name Value Range Interpretation Code Description Data Lashonda rce(s) Supporting Document(s) Free T4 (Free Thyroxine) 0.76-1.46 Normal (applies to non -numeric results) [facility] ID Date Data Source [id number] 02/11/2021 03:30:00 PM [facility] Name Value Range Interpretation Code Description Data Lashonda rce(s) Supporting Document(s) White Blood Count 3.5-10.5 Above high normal [facility] Red Blood Count 3.90-5.00 Above high normal [facility] Hemoglobin 12.0-15.5 Normal (applies to non-numeric resul ts) [facility] Hematocrit 34.9-44.5 Normal (applies to non-numeric resul ts) [facility] Mean Corpuscular Volume 81.2-95.1 Normal (applies to non- numeric results) [facility] Mean Corpuscular Hgb 25.6-32.2 Normal (applies to non-num tomeka results) [facility] Mean Corpuscular Hgb Conc 32.0-36.0 Normal (applies to no n-numeric results) [facility] Red Cell Distribution Width 11.9-15.5 Normal (appli es to non-numeric results) [facility] Platelet Count 273 x10 3/uL 150-450 Normal (applies to non-numeric results) [facility] Mean Platelet Volume 9.4-12.4 Normal (applies to non-num tomeka results) [facility] Neutrophils% (Auto) 31.0-71.0 Normal (applies to non-nume shana results) [facility] Lymphocytes% (Auto) 20.0-55.0 Normal (applies to non-nume shana results) [facility] Monocytes% (Auto) 4.0-12.0 Normal (applies to non-numeri c results) [facility] Eosinophils% (Auto) 1.0-8.0 Below low normal [facility] Basophils% (Auto) 0.0-2.0 Normal (applies to non-numeri c results) [facility] Immature Granulocytes% (Auto) 0.0-2.0 Normal (jonathan lies to non-numeric results) [facility] Neutrophils# (Auto) 1.50-6.20 Above high normal [facility] Lymphocytes# (Auto) 1.20-4.00 Normal (applies to non-nume shana results) [facility] Monocytes# (Auto) 0.00-0.90 Normal (applies to non-numeri c results) [facility] Eosinophils# (Auto) 0.00-0.50 Normal (applies to non-nume shana results) [facility] Basophils# (Auto) 0.00-0.20 Normal (applies to non-numeri c results) [facility] Immature Granulocytes# (Auto) 0.00-7.00 No rmal (applies to non-numeric results) [facility] ID Date Data Source [id number] 01/20/2021 08:58:00 AM EDT [facility] [address] [place] [address] PHONE: [phone] FAX: [phone] Name .................. : KATIE Snell Acct Number.................. : [id number] ROOM. ................. : MR Number ................... : [id number] Stay type ............. : O/P Discharge Date......... ... : 01/18/21 Admit Date ......... : 01/18/21 Admit Phys .................... : STUCK LACIE Date of ....... : 2000 Family Phys ................... : [facility] Phone .................. : [phone] Age ................................ : 20 Film# .................. .:[id number] Sex ................................. : F Unsigned transcriptions are preliminary reports and do not represent a medical or legal document SPINE LS AP & LAT 90235 COMPLETE:01/18/21 10:01 97352 Reason for Exam: SPONDYLOTHESIS, EVAL L5-S1 LUMBOSACRAL [...] for: KRISSY MORGAN via fax Copy for: [address] [place] [address] REC Page 1 of 1 Name Value Range Interpretation Code Description Data [facility] Supporting Document(s) ID Date Data Source [id number] 10/13/2020 01:28:11 PM [facility] XR SPINE LUMBAR 2-3 VIEWS [id number] RES ULTInterpreted by:Howard Mireles MDHenry Ford Hospitalar spine radiographsINDICATION: Assess alignment.COMPARISON: Thoracic and lumbar [...] rce(s) Supporting Document(s) ID Date Data Source [id number] 10/13/2020 01:24:28 PM [facility] Name Value Range Interpretation Code Description Data Lashonda rce(s) Supporting Document(s) Progress Note [facility] UMCXKb8oLuFDUxJm36/DHAmgEGIlz1NqUItnNDs0QCnnFRZrG1NiWLF8oX1pMCV0NYnIIiKuCpMuQBR6 lbm TiCnjKDlXqWMJeGwyACaUaYYioDvrtrBDaCO4VnQM0RSApP04mTMDiHGWbW2PhOBR1ReQ+Dp5VDJYkiS LzII3DFzuU3J2bzzq2JL5s2I6StHSrSQX60ogaHTEGYnVgXSp+wNXDdCKfcfEAK9yJz+t/05/auXBGc0 9Ll5MZmVEHkf2Ys4zqpVTvMJaE2UcX/HhN5Vc4f7RP 9l/3I3srHPdVL/0PqNz4HtHi6SI5Mz80MxMJeABhE3n+1bVAt5H/rIELumWjKh68Y4Jddn1MThAn3c0C /2b2+vhfHA3ZsrUnAfD1wah4R1hWZMvhts3CF+Brianna+hcio+vmzwZ1ExY886/BePetye24EjHmX2QeUJm [file] f8EHKiLeYnZ8ZeZtN+SD4pNWb+Lp7Co4TyvlV1nlEnQVdfGaw7ZP9WUANJR3ZVGs== ID Date Data Source [id number] 10/14/2020 01:58:00 PM EDT [facility] CHLAMYDIA/GC SOURCE: VAGINAL Name Value Range Interpretation Code Description Data Lashonda rce(s) Supporting Document(s) Chlam Amp Probe-Swab Negative Normal (applies to non-num tomeka results) [facility] GC Amp Probe- Swab Negative Normal (applies to non-numer ic results) [facility] Methodology: Second generation nucleic a sariah amplification. ID Date Data Source [id number] 09/01/2020 09:19:15 AM EDT [facility] Name Value Range Interpretation Code Description Data Lashonda rce(s) Supporting Document(s) Progress Note [facility] OVAMDt5wAbANFtNk54/USLhjRZHku4BwLPacSNh3KAkdWVGiT5GlSJR5uG6tYKS7SOxNUoSuYkXxTlEy lb [file] RI9cMNb+Rv9Sa6RzsmO4xePeKJjsWDMcXg0HHMIJQ3BVJz== ID Date Data Source [id number] 08/21/2020 12:11:55 PM [facility] Name Value Range Interpretation Code Description Data Lashonda rce(s) Supporting Document(s) Operative Note [facility] WBBPMa8jOvJVPzKy72/WZPuiEHQcy3KiUGjoVIh3TUxfVXAgP5AoTNW2qR4eBPT1LHvYMqPbOuJlXhHg lbm [file] AV8GMJWWS1BHEy== ID Date Data Source [id number] 08/18/2020 04:44:40 PM EST [facility] Name Value Range Interpretation Code Description Data Lashonda rce(s) Supporting Document(s) Discharge Summary [facility] ILMFXc8ePlZDOhRk76/ZLQghIVMtz4ZaJHuiUDg9KJaoKCQhJ5CgFGR5oN6qLCE9XNmOMjKyTjLaVhE1 lbm [file] gCgl7wkBB5aUMTsZzuO5vsRKfunyGBT5Gl0K5EhI7I/svp programmatic tv/WOjg3f8PWE0lg0FjNNFnLJrhtkInCngBOb [file] NRPm8kcyACkpyy+c38/HJ+Human Resource Officer+MywXxdD4+v1wsV/MA58Z4XO7SVvY1ZEeFiJRdLOXjt+2m684p29TT9Y [file] 7S0Yq1PDtd7IMlsmTDlwZzB0WwwLpHjAgyetABrqimjrvrtsNliwbaEIhrfVyMwhiezqQgxwql2Rrllj jEBhKrEBtIrEJsILEKsYHEKsQGEqswGMigwmAgg+svp programmatic tv [file] AgICAgICAgICAgICAgICAgICAgICAgICAgICAgICAgICAgICAgICAgICAgICAgICAgICAgICAgICAgIC AgICAgICAgICAgICAgICAgICAgICAgICAgICAgICAg ICAgICAgDQogICAgICAgICAgICAgICAgICAgICAgICAgICAgICAgICAgICAgICAgICAgICAgICAgICAg ICAgICAgICAgICAgICAgICAgICAgICAgICAgICAgICAgICAgICAgICAgICAgICAgDQogICAgICAgICAg ICAgICAgICAgICAgICAgICAgICAgICAgICAgICAgIC AgICAgICAgICAgICAgICAgICAgICAgICAgICAgICAgICAgICAgICAgICAgICAgICAgICAgICAgICAgDQ ogICAgICAgICAgICAgICAgICAgICAgICAgICAgICAgICAgICAgICAgICAgICAgICAgICAgICAgICAgIC AgICAgICAgICAgICAgICAgICAgICAgICAgICAgICAg ICAgICAgICAgDQogICAgICAgICAgICAgICAgICAgICAgICAgICAgICAgICAgICAgICAgICAgICAgICAg ICAgICAgICAgICAgICAgICAgICAgICAgICAgICAgICAgICAgICAgICAgICAgICAgICAgDQogICAgICAg ICAgICAgICAgICAgICAgICAgICAgICAgICAgICAgIC AgICAgICAgICAgICAgICAgICAgICAgICAgICAgICAgICAgICAgICAgICAgICAgICAgICAgICAgICAgIC AgDQogICAgICAgICAgICAgICAgICAgICAgICAgICAgICAgICAgICAgICAgICAgICAgICAgICAgICAgIC AgICAgICAgICAgICAgICAgICAgICAgICAgICAgICAg ICAgICAgICAgICAgDQogICAgICAgICAgICAgICAgICAgICAgICAgICAgICAgICAgICAgICAgICAgICAg ICAgICAgICAgICAgICAgICAgICAgICAgICAgICAgICAgICAgICAgICAgICAgICAgICAgICAgDQogICAg ICAgICAgICAgICAgICAgICAgICAgICAgICAgICAgIC AgICAgICAgICAgICAgICAgICAgICAgICAgICAgICAgICAgICAgICAgICAgICAgICAgICAgICAgICAgIC AgICAgDQogICAgICAgICAgICAgICAgICAgICAgICAgICAgICAgICAgICAgICAgICAgICAgICAgICAgIC AgICAgICAgICAgICAgICAgICAgICAgICAgICAgICAg IQYzEMUxFDLeOIXoKVIbITm9D4imQWSpEVAkWE9vEZd5Cu0+UZeRMnMsVZE4dhJfjV7UXS1co5JzULjt RFWao4BkTCd9AL9RJZQjIBnaLE5RFEumuy1AXHVwUPXfgGWMo9uqGyJaSNA4UGBlQfruPV8FPFToY9gl cyBbIDUgMCBSIDcgMCBSIDkgMCBSIDExIDAgUiAxMy XhTUBdPP8MODQyI634hqDtCQ2HAd5QBeNwWD2eja2OArVbBXRxWlmBFxj3LUqmVY8VaVXraYDwLCOnEE IYHsMrB8wfw6WxTgBePDZUDFkuBW4De9ZqeUWhMFt+Lc2BAZ3nl2JfJVcyJVZkGX2kff3BBBbCAyMmH4 FrvNwjCLFxt5OtJNJdLKUCiD2zXPK5DAO7EM2ybFFe EDlwTZLZia38DWJoNY2XWOD3VBBxId3hKAUeMYVlHfTdDSEREO6MIVVoQOAejWCnVJXmRMKYMF9ZRCym MVN2VDShvbWapFTqVGugIA6ENQNwhbUaSzIvPJUSLDp+Lq4FFU4kg9JcNIyaURZpSQ2yed9LMAxSVhMp Q8Q0eNIiH3N8SUdmFl6RTZEtXQUhMmQgWEZOAYajIO 7OSG8xfyR8PV3XjZQcLOPhCOZlyMXmIWv0I77fdMNfQKoxFU7XFVH+Sobia+Hc9KJFOsFVSyGWKyTqOaYV JVJxNdX6JnF1ILi1UxU5PwIJ63nFzyikVmVKtvAG1WHZ9dUKJeEAXEUP6FyQZrjC2icjXgHxZuYDLSMg BjU36juBAeTRBkIVTjZDLyZv4TFTXgG3JseoWohBsb ppBdKIZbQUEYDD3GDTovrgXxsYGakJonDW76jGicWS2VSn2QGgLyBM8tdp0LeQIxPf1EIPKiLs2GAPLh NMJwHGKhJBV6PGMhDdOsBSakGNNyIQLgIXP3UNYzFYRfYY5PYfJrYBOaCXE9JVDmGIBwKIEmwi2TKZDo IGR9DWQuOMSfDQHwOPThGFdwBBHcFEBsOFI6OYLhTT CtWJ1WDgFrNWWxDKC9FlsxIULeZZJxsb2ZXOXyEAXbDsH5LlTaBBMcUJFoLQsxLSQkGJB3SIR1EBCjJV BkSX1XQcUiGABmDYLpJuTiBVFdLCUrsh8XOKInXPRfHVH0ZeGiXIYrNQWoDSwvHBXiULB8PmR9XFWnFS JlAB7MJeMkSWLcZZA6DiwxFNZqVCYouk6TPXMxIAFz Wul0MxYgCRPpBRWvNFscCFEoZAK3WhZ5XYCiYFQjXX1LBmWmPMFuUPC8WiQvWEUpBBEaah8ALPZmUAGf Cwf0QGEuYDLqGLBcIIwsEJCcFQM4CSj1UDRlBIEqXD9FIaLoEKEgJWlaUnZqKIDpLKWaom0RRMVaHJVm PXXkIEAoYIAtWHBoYPpxGRUtDUI0KhArBUNpULMeZL 4WGmOvXUHdKJd8WMzrZNFpCORcpd3LTJAyTNWoUCG3TOWwPEGyTFCyNCeuOOUlWUJ0LjE7MLBxQMLxUC 0NEcPzWUKkHBo0SPhvXGKzWAGjbh7BRGVjEWC2DSB7YlHzAOPcMCKeXEqiRYGjCBFdPIsoCEJbQTBjFY 0ARbFqRNLtZVGmTZGnTGEuZMXfdg2HMFCiDXM0QBb5 RpVwSNGcWWQpMDpeCQHkXDObLCEhZYYzIEEfCW7JJoBhMCBsAKEuBrBwFZUfHTRvdg6WRUWzFSZ0RmH0 JEPoZLYqDZDbMEjjMFCkHJTsEOAiUWJyRVOuDN4MBuWlXDPjWWO9MoMcGUOuKGLuty4INHSuWEV7USRj KBTzHOOyYOTkADrmIIAbGUJ3NGJyFJRfUFUvSG9HCv EgWIXkARL0UJRaFCTlEJReyt9CeSGeeDjbsd2RIIkKLv5LrLfiOYX1NBpwDo5wiPWqSGAmYGVUDa2Scj SqWPSsFJAYNAakLXJzVJIpCaJhAtvpKUC1I7K1JbrgO7KwRcm7MAs7YHK7OQIwApC7MQXkB3UeUYKoHG VvGUA5HTCaFpIvPfZ1SAijBMUtZpB+AV4xEOa+Cw9Cw4NevlQ4agOzCSo6HNu1Lj6SGNIIE0RTMv== ID Date Data Source [id number] 08/14/2020 03:56:53 PM [facility] Name Value Range Interpretation Code Description Data Lashonda rce(s) Supporting Document(s) Operative Note [facility] LBNXOt2rDrKLYmUl43/FVGmwUMPku2SdVEtbCUa9IOaaHAIuZ8MhHWW8fL3jIOW7PGcJPkRtXfMaAvO6 lbm XqUtvQAvQsCUMkSsmLNfNnPCotHqskkVWnQL8RsJQ6ANScB07iRQDpCPNbN1QnJSX7KAV+Xy4QFHWqzF QbWQ6MZksZ0C2Koic9Rn3bBS9JvHR1Q5JPrkqySmfXzGq4yEEeJHGHyzG9iELSncJJj5/flrpbcpXpL6 HuOffyDu0liiULdNr1dWZF4Q9/wm8XevhIBK+f/xlE UjR74p//EIthjpwPW/oIPnSW6sbxCUrF/xdUjjf2k8bmE9wq5KVtEg56YkBelk2S7kDh0z4vqa297JQ9 4UYMiQVqPt08X772E44e+tIslxt3b1E5f6k9eYpGYR5Wg+732jd1WuKQudz258rL0lFWm9EIEKG2AOu2 2wacxxzlKdubf3bODuhSxbegZmtnozdiXPxi8ovsQO [file] 7cMRZTMw6+HLxaaRCydYkvZZBYHub9QhZGAnEzOO5EPLf= ID Date Data Source [id number] 08/14/2020 03:50:56 PM [facility] Name Value Range Interpretation Code Description Data Lashonda e(s) Supporting Document(s) History and Physical [facility] DZGLXf9mCeOSIwBe89/EDQrdPXDhr3SaSAxgIMx2VRlaLOYuL1FmIFQ4pR0uTBE4ZMcAKrRhEgHvYcD4 lbm [file] TqOTb9TKTrEyKrEh3lWDDIPp1+GRyirQPapHehAVPQCkZnIfeyEJxsQILOSy0G ID Date Data Source [id number] 08/14/2020 02:09:53 PM [facility] XR SPINE-ENTIRE THORACIC AND LUMBAR- 2 O R 3 VIEW [id number] RESULTInterpreted by:Juvenal Bryant MDINDICATION: S/p L5-S1 ALIF, [...] rce(s) Supporting Document(s) ID Date Data Source [id number] 08/14/2020 10:30:29 AM [facility] XR SPINE L-S 2-3 VIEWS PORT-[place] [id number] L RESULTThis statement is intended for documentation purposes only.This exam was performed in the Operating Room by the Surgeon and a Radiologist was not present. Please refer to the Operative note in EPIC. Name Value Range Interpretation Code Description Data Lashonda rce(s) Supporting Document(s) ID Date Data Source [id number] 08/14/2020 07:18:39 AM [facility] Name Value Range Interpretation Code Description Data Lashonda rce(s) Supporting Document(s) History and Physical [facility] TGQIRa8fMjEPByQn18/WTPamIHJsk1ZqWHqdSOs6BFezDJViQ3EvKIU0qY8bHNS6JYdNAiBuDyZrQcH9 lbm [file] MARY+K4cmSi+DbWDHsn9Fnldw48xyVhnrqSrBt1t4aqI+sX0e0JNLTyh+O0L3hIYk7NRBy7PV3iBM/RWD m+fS+orqy9EwzKOA7Q+TKRYUcjON4Awy0u6KaOKRcE tl/Ru87BSchrXS8wgViLetiUIz13PoP7zH5n85NShs3JH6kuCAlL5ndOdFdUzsj+451twSrojEAZsDmJ Human Resource Officer/W2V5+qblbWGxCPdPO/BAVcGjhROWPAXYlDUQXI2U8i+fsZWHFmdlh5X6wch5qjhdt6bTbCGvXOB0u [file] AgICAgICAgICAgICAgICAgICAgICAgICAgICAgICAgICAgICAgICAgICAgICAgICAgICAgICAgICAgIC AgDQogICAgICAgICAgICAgICAgICAgICAgICAgICAg ICAgICAgICAgICAgICAgICAgICAgICAgICAgICAgICAgICAgICAgICAgICAgICAgICAgICAgICAgICAg ICAgICAgICAgICAgDQogICAgICAgICAgICAgICAgICAgICAgICAgICAgICAgICAgICAgICAgICAgICAg ICAgICAgICAgICAgICAgICAgICAgICAgICAgICAgIC AgICAgICAgICAgICAgICAgICAgICAgDQogICAgICAgICAgICAgICAgICAgICAgICAgICAgICAgICAgIC AgICAgICAgICAgICAgICAgICAgICAgICAgICAgICAgICAgICAgICAgICAgICAgICAgICAgICAgICAgIC AgICAgDQogICAgICAgICAgICAgICAgICAgICAgICAg ICAgICAgICAgICAgICAgICAgICAgICAgICAgICAgICAgICAgICAgICAgICAgICAgICAgICAgICAgICAg ICAgICAgICAgICAgICAgDQogICAgICAgICAgICAgICAgICAgICAgICAgICAgICAgICAgICAgICAgICAg ICAgICAgICAgICAgICAgICAgICAgICAgICAgICAgIC AgICAgICAgICAgICAgICAgICAgICAgICAgDQogICAgICAgICAgICAgICAgICAgICAgICAgICAgICAgIC AgICAgICAgICAgICAgICAgICAgICAgICAgICAgICAgICAgICAgICAgICAgICAgICAgICAgICAgICAgIC AgICAgICAgDQogICAgICAgICAgICAgICAgICAgICAg ICAgICAgICAgICAgICAgICAgICAgICAgICAgICAgICAgICAgICAgICAgICAgICAgICAgICAgICAgICAg ICAgICAgICAgICAgICAgICAgDQogICAgICAgICAgICAgICAgICAgICAgICAgICAgICAgICAgICAgICAg ICAgICAgICAgICAgICAgICAgICAgICAgICAgICAgIC AgICAgICAgICAgICAgICAgICAgICAgICAgICAgDQogICAgICAgICAgICAgICAgICAgICAgICAgICAgIC AgICAgICAgICAgICAgICAgICAgICAgICAgICAgICAgICAgICAgICAgICAgICAgICAgICAgICAgICAgIC NtPJEaAIUmNPXaGIs9B8jiJYSzYOMmCU2zYQt9Ma3+ XPbDOxTyFII0ciYngA4LJS0oa7HtFDjxJRBma7UxGIp5BO7VFBAaTGcjTM2QZSdliz1YMRAdTRAfhWPR r4mkCeWgUMZ0MDBfRhyeSY1GXQSjY4clbiUuUGCyUNQBNXdaZHHGNYihKUWVGMCtRJXiXgDpILnjCH3Z x7GvxGK9TCo+Zi0NYD7qf3VeAVofMePbUL6uqe9EFD bZJiTcF8XazjL3UKH6YTBtAt5RYWEyGIUmaNKsNwBlWNSSBaUwF5CjcH10RNUOSd1+DQplbmRvYmoNCj G9FKVdi7AfXYh0FP9BEMDhGRn4hEXeSDZUSVS9ADBjJI1iw11qXFFUfJtjqE3lx55vHO4TOYG1IDDdFH 5aXDEeCAQ5SrC1GAIMDJ0BHAThJKGpcJXzOHAcNCTL IP8BWBsrGDD9WLVupaOadVUzDJkgZL8IBZPqikBqTcAdLGZSWLz+Sc2QRC4em0IaBMmnKIMxRJ8adx5Y ASdYOzYaI3Y1sTThV7O6TLwwUy4VPRAjTKZwCfKoMSACXMhyFZ3VXC2hgjG5XS7LnXFaYOAbQZWhgFGy FEq5Z12imMPqPXfnAB3MKVJ+Sobia+Tn0SUJIxOPItMT XsZiPbDJLAImApU8BbW2JSd1OxI1MeIV57fCvbcxNsFJagWL8LUQ3oNOJiZBSURT6XtIXdaL1uxgTvZa WpLFTSIhPjJ84bdZDrDXAeJJR2SNEvQe5ANMBnM8CkytOkfIfzjpVvAYCpGOORDN1UAFcatrGpxCPbnN byTV43eVfuES1WHi5CHqHeMJ8kqu3BvDXgFk0KKGUd RN1YEMDkNQBgWUGnYZE1VBLtPePoYVjvFSEmIQQcZMH5TBIwFUNcWK4HYcZrFMHyFQD2RHisFMFhBCWo th5ILHJcGWP8EoS1JUYpQHWdKEOsSCthXLBpYOGiOOW8KPOwSCKsHE6UTkKsPOTyZOQ8ZwyqCQKlKCPx xb5PFLEbMAVeIdP7AYDkGKUoROUoKXdrWGMvAKZ6HJ T0YGRtCPCoZC5IGvSlTQFgGKR9LaXnTNIxXERhed7GEAVxSTMxCOt3INAoWAFjBSZlZHunFACkSEB9CA k8AOMpJBGpVU1HGpVeHIQhAEE4RWelVZKhMSWpro7VTJMvEIAxEYd3TaSeFLApGLKjSEafMFYnFBYxNG HxGYDmHXPsHH7VBeMwORWqGHUdIEZwLDMeQWHuon8D ALXbJKMmTjQsLnIiUDDvYGQjUZyfHPVsFMM7RHwnYQEqOVMfVC9QVoUwCBAqBEYvBCMvCFXjIYNkos1H EHFgDSBdNQE5NpScLBZzPHCuYIwyPPLvUZR8Dos9YFJbNCKkML4DOcRxIZCyCzFjGTGzRVFqJHRngl9S UILmLPVsTeU0HhRwUSWuXNVuQKaqLZHcVVE4EXL7XY LlEDYcGG5BFjHeWZFrEeY4RxAiNTMwXPMbdx1CMITmJMBiYefsRlBnJRLdBUAkUAttSUQdFEK4ZMq6ZR QrJFBnEJ3PVpNxQGZaXwqgGAxyPIDaRKQexl5KIHSpRMT5WFO1XoHdHLUvPABkQHyfBGReFDS6ULCmXA LwWWXgBB9PYiLrBSLeCYEcFcMpTHHdEJDvea4TOXFf VZN6IHBpICZpYPYkLCBzMUanNWNxDPJfFOA4BIGwRUVbSX6OGkGnIANwNCO1AIcaWOJpMMGztp4GNBQu UJK6WTT2RtNmSUEzGDBnSRikLQQhKLPcDAG9UWQtMCMtGH4SDwOiWAXqUZAlATBrLWSpDMWefp5BBVCd NYH8Gay2NOTxZFCfKRNpHSvgHCOpAZTpATJaMRCeTL CiJV5IEcAuGLTbQXJ8PBQmVUZcYUNyzb4MzCAllMgeib1FBJoTEx6KuBojYTI9BDpkLc6ygRYbKPJkUU NTSw5LswTjDXTnBFOCFYrxASCnFRQ7J8O5OnwzUBAvWNi8MXQdW2OePlm1JYMwPWLpNdObRnN4APNtRw WdWRN1JIBrNWvmC2QmQPTgQZDfXmM8ASFnLGI+IF0g DQo+Bw2Ne4SyvqW7wyHoWBo4NXNfEQ2MWYBTW6WTYi== ID Date Data Source [id number] 08/14/2020 06:27:57 AM [facility] Name Value Range Interpretation Code Description Data Lashonda rce(s) Supporting Document(s) Choriogonadotropin.beta subunit free [Units/volume] in Serum or Plasm a <5 [facility] (NOTE)Levels between 5 and 25 [IU]/L may indicate earlypregnancy and should be repeated after 48 hours. ID Date Data Source [id number] 08/14/2020 06:36:52 AM [facility] Name Value Range Interpretation Code Description Data Lashonda rce(s) Supporting Document(s) ABO and Rh group [Type] in Blood [facility] Blood bank comment [facility] ID Date Data Source [id number] 08/10/2020 03:24:09 PM [facility] XR CHEST FRONTAL AND LATERAL [id number] RESULTInterpreted by:Hakan Sidhu MDINDICATION: Preop.TECHNIQUE: Frontal and [...] rce(s) Supporting Document(s) ID Date Data Source [id number] 08/10/2020 11:17:56 AM [facility] Name Value Range Interpretation Code Description Data Lashonda rce(s) Supporting Document(s) EKG [facility] WNDMDj3kPkQVRrPhb4VmIkWhQAPhRE9vxgn2K5D0qHXbQ1MlqVAqi8msS4UiO7CoKWAsHIEKXU1QsPJo jb2 [file] fSK3YafaYbWdSPR5qpHd7fIyCzPTOCY8Thf3TlSS AwIFIKCj4+PeK1WVZ0bTLhJig5Jrq3PNywQPJDLo== ID Date Data Source [id number] 08/10/2020 10:44:14 AM EST [facility] Name Value Range Interpretation Code Description Data Lashonda rce(s) Supporting Document(s) Progress Note [facility] VNOYFq1zMyPEKdMo34/CJOmyBESly1SqIZkhMVx4UFzlSIVxT0KxBBU5lG0hQAD2RUyUBsFfAbTwQoPw lbm [file] KuKDSbWiDS1ANDk= ID Date Data Source [id number] 08/10/2020 10:27:00 AM EST [facility] Name Value Range Interpretation Code Description Data Lashonda rce(s) Supporting Document(s) SARS-CoV-2 RNA 2019 nCoV Real-Time RT-PCR: NOT DETECTED [facility] This lab was ordered by [facility] and reported by [facility]. 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 [facility] Patient has symptoms related to [facility] When did you start to experience these symptoms [Date and time] [Phen X] [facility] Patient was hospitalized because of this condition [facility] patient was admitted to ICU for [facility] Patient resides in a congregate care setting [facility] status [facility] ID Date Data Source [id number] 08/10/2020 02:05:19 PM [facility] Name Value Range Interpretation Code Description Data Lashonda rce(s) Supporting Document(s) Leukocytes [#/volume] in Blood by Automated count 7.0 10*3/uL 4.5-13 [facility] Erythrocytes [#/volume] in Blood by Automated count 4.86 10*6/uL 4.1- 5.3 [facility] Hemoglobin [Mass/volume] in Blood 14.0 g/dL 11.5-15.5 [facility] Hematocrit [Volume Fraction] of Blood by Automated count 42.5 % 3 6-45 [facility] Erythrocyte mean corpuscular volume [Entitic volume] by Auto mated count 87.4 fL 80-96 [facility] Erythrocyte mean corpuscular hemoglobin [Entitic mass] by Automated count 28.8 pg 27-33 [facility] Erythrocyte mean corpuscular hemoglobin concentration [Mass/volume] by Automated count 32.9 g/dL 32.0-[facility].0 [facility] distribution width [Ratio] by Automated count 12.7 % 11.5-14.5 [facility] Platelets [#/volume] in Blood by Automated count 264 10*3/uL 150-400 [facility] Differential cell count method - Blood [facility] Neutrophils/100 leukocytes in Blood by Automated count 62 % [facility] Lymphocytes/100 leukocytes in Blood by Automated count 32 % [facility] Monocytes/100 leukocytes in Blood by Automated count 5 % [facility] Eosinophils/100 leukocytes in Blood by Automated count 1 % [facility] Basophils/100 leukocytes in Blood by Automated count 0 % [facility] Neutrophils [#/volume] in Blood by Automated count 4.36 10*3/uL 1.8-7 .0 [facility] Lymphocytes [#/volume] in Blood by Automated count 2.23 10*3/uL 1.2-4 .0 [facility] Monocytes [#/volume] in Blood by Automated count 0.34 10*3/uL 0-0.8 [facility] Eosinophils [#/volume] in Blood by Automated count 0.06 10*3/uL 0-0.5 [facility] Basophils [#/volume] in Blood by Automated count 0.01 10*3/uL 0-0.2 [facility] Nucleated erythrocytes/100 leukocytes [Ratio] in Blood by Automated count 0 /100{WBCs} 0-0 [facility] ID Date Data Source [id number] 08/10/2020 02:14:55 PM [facility] Name Value Range Interpretation Code Description Data Lashonda rce(s) Supporting Document(s) Prothrombin time (PT) 11.8 s 12.5-14.9 L [facility] INR in Platelet poor plasma by Coagulation assay 0.86 [facility] Routine intensity oral anticoagulation I NR is typically 2.0-3.0. Target INR must be clinically individualized. ID Date Data Source [id number] 08/10/2020 02:14:55 PM [facility] Value Range Interpretation Code Description Data Lashonda rce(s) Supporting Document(s) aPTT in Platelet poor plasma by Coagulation assay 27.0 s 24.0-33. 0 [facility] ID Date Data Source [id number] 08/10/2020 02:19:04 PM [facility] Value Range Interpretation Code Description Data Lashonda rce(s) Supporting Document(s) Bicarbonate [Moles/volume] in Serum 24 mmol/L 22-29 [facility] Chloride [Moles/volume] in Serum or Plasma 107 mmol/L 98-107 [facility] Creatinine [Mass/volume] in Serum or Plasma 0.83 mg/dL 0.50-0.90 [facility] Glucose [Mass/volume] in Serum or Plasma 83 mg/dL 70-140 [facility] Potassium [Moles/volume] in Serum or Plasma 4.0 mmol/L 3.4-5.1 [facility] Sodium [Moles/volume] in Serum or Plasma 142 mmol/L 136-145 [facility] Urea nitrogen [Mass/volume] in Serum or Plasma 12 mg/dL 6-20 [facility] Anion gap 3 in Serum or Plasma 11 mmol/L 8-15 [facility] Osmolality of Serum or Plasma by calculation 293 mosm/kg 275-300 [facility] Creatinine/Urea nitrogen [Mass Ratio] in Serum or Plasma 14 [facility] Calcium [Mass/volume] in Serum or Plasma 9.8 mg/dL 8.6-10.0 [facility] Glomerular filtration rate/1.73 sq M pre dicted among non-blacks [Volume Rate/Area] in Serum or Plasma by Creatinine-based formula (MDRD) >6 0 [facility] Glomerular filtration rate/1.73 sq M pre dicted among blacks [Volume Rate/Area] in Serum or Plasma by Creatinine-based formula (MDRD) >60 [facility] ID Date Data Source [id number] 08/10/2020 01:57:59 PM [facility] Name Value Range Interpretation Code Description Data Lashonda rce(s) Supporting Document(s) ABO and Rh group [Type] in Blood [facility] Blood group antibody screen [Presence] in Serum or Plasma [facility] Blood bank comment [facility] ID Date Data Source [id number] 08/10/2020 11:09:57 AM [facility] Name Value Range Interpretation Code Description Data Lashonda rce(s) Supporting Document(s) Color of Urine [facility] Clarity of Urine [facility] Specific gravity of Urine by Refractometry automated 1.021 1.003 -1.030 [facility] pH of Urine by Automated test strip 6.0 5.0-8.0 [facility] Protein [Mass/volume] in Urine by Automated test strip Neg [facility] Glucose [Mass/volume] in Urine by Automated test strip Neg [facility] Ketones [Mass/volume] in Urine by Automated test strip Neg [facility] Bilirubin.total [Presence] in Urine by Automated test strip Negative [facility] Hemoglobin [Presence] in Urine [facility] Leukocyte esterase [Presence] in Urine by Automated test strip Negative [facility] Nitrite [Presence] in Urine by Automated test strip [facility]ati [facility] Leukocytes [#/area] in Urine sediment by Automated count 0 /HPF 0 -5 [facility] Erythrocytes [#/area] in Urine sediment by Automated count 0 /HPF 0-3 [facility] ID Date Data Source [id number] 08/10/2020 11:16:44 AM [facility] Name Value Range Interpretation Code Description Data Lashonda rce(s) Supporting Document(s) Choriogonadotropin ( test) [Presence] in Urine [facility] NEGATIVE: either no HCG or too low to de tect, <20 mU/mL Specific gravity of Urine by Refractometry 1.021 1.003-1.030 [facility] ID Date Data Source [id number] 07/31/2020 04:58:00 PM [facility] Name Value Range Interpretation Code Description Data Lashonda rce(s) Supporting Document(s) Chlamydia,Urine result Negative Very abnormal (applies t o non-numeric units [facility] Test Performed By: [facility] [address] [place] [address] Director: Justen Pugh MD . THIS IS A STATE REPORTABLE COMMUNICABLE DISEASE. Results called 07/31/201618, Kathy Winter MT @ lab read back information to LAB.BRITNI MARTINEZ read back information 07/31/20 163 MECHELLE.TITI This is a Corrected Result --- 07/31/201656 --- Chlamydia,Ur previously reported as: Positive A Test Performed By: [facility] [address] [place] [address] Director: Justen Pugh MD . THIS IS A STATE REPORTABLE COMMUNICABLE DISEASE. Results called 07/31/20 1619, Kathy Winter MT @ lab read back information to LAB.STEPHANIE Snell read back information 07/31/20 1631 LAB.TITI Urine result Negative Normal (applies to non-numeric results) [facility] Test Performed By: [facility] [address] [place] [address] Director: Justen Pugh MD . Methodology: Second generation nucleic acid amplification. ID Date Data Source [id number] 07/31/2020 04:19:00 PM EST [facility] Name Value Range Interpretation Code Description Data Lashonda rce(s) Supporting Document(s) Chlamydia,Urine Negative [facility] Test Performed By: [facility] [address] [place] [address] Director: Justen Pugh MD . THIS IS A STATE REPORTABLE COMMUNICABLE DISEASE. Results called 07/31/201618, Kathy Winter MT @ lab read back information to LAB.DANTEDOREEN Test Performed By: [facility] [address] [place] [address] Director: Justen Pugh MD . Methodology: Second generation nucleic acid amplification. ID Date Data Source [id number] 05/27/2020 05:49:00 PM [facility] Imaging Services Department Imaging Report [address] [place] [address] %(RAD)RES..mtdd.print.filter("line") Name: KATIEALDO M : 2000 Age/Sex: 20F Ordering Provider: Eddie Crawford MD Med Rec #: [id number] Reg Status: DEP REF Room #: Date of Service: 05/27/20 Report Number: [id number] cc:NADEEM Oropeza; Eddie Crawford MD Send Report To: [id number] CT/CT Lumbar Spine No Contrast Reason for [...] Dictation Date/Time: 05/27/20 1222 Transcribed Date/Time: 05/27/20 0189 Transcripti onist: EMILIANA Name Value Range Interpretation Code Description Data Lashonda rce(s) Supporting Document(s) ID Date Data Source [id number] 05/19/2020 10:11:37 AM EST [facility] Name Value Range Interpretation Code Description Data Lashonda rce(s) Supporting Document(s) Progress Note [facility] MOXINx4bGyFFMfJj46/FUXdeBZLbp6OiAPqrGVl3LPgtXYZdU4EgAHE6cG3gZPZ5FJiMHaWqPlPvFmM3 [facility] [file] iWHlCx1GKyWlEHBHJpJwVV6SMKo= ID Date Data Source [id number] 05/18/2020 08:29:[address] [facility] Imaging Services Department Imaging Report [address] [place] [id number] %(RAD)RES..mtdd.print.filter("line") Name: ALDO WILSON : 2000 Age/Sex: 20F Ordering Provider: MONTSERRAT Blanton Med Rec #: [id number] Reg Status: DEP REF Room #: Date of Service: 05/15/20 Report Number: [id number] cc:NADEEM Oropeza; MONTSERRAT Blanton Send Report To: [id number] MRI/MRI Lum Spine No Contrast Reason for [...] Date/Time: 05/15/20 1527 Transcribed Date/Time: 05/18/20 0829 [employer] Dredge Operator: MARYANA Name Value Range Interpretation Code Description Data Lashonda rce(s) Supporting Document(s) ID Date Data Source [id number] 04/21/2020 11:10:56 AM [facility] XR SPINE LUMBAR 2-3 VIEWS [id number] RES ULTInterpreted by:Brock Roberts MDINDICATION: 20-year-old female [...] rce(s) Supporting Document(s) ID Date Data Source [id number] 04/21/2020 11:09:28 AM [facility] Name Value Range Interpretation Code Description Data Lashonda rce(s) Supporting Document(s) Progress Note 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 [file] AgICAgICAgICAgICAgICAgICAgICAgICAgICAgICAg ICAgICAgICAgICAgICAgICAgICAgICAgICAgICAgICAgICAgICAgDQogICAgICAgICAgICAgICAgICAg ICAgICAgICAgICAgICAgICAgICAgICAgICAgICAgICAgICAgICAgICAgICAgICAgICAgICAgICAgICAg ICAgICAgICAgICAgICAgICAgICAgDQogICAgICAgIC AgICAgICAgICAgICAgICAgICAgICAgICAgICAgICAgICAgICAgICAgICAgICAgICAgICAgICAgICAgIC AgICAgICAgICAgICAgICAgICAgICAgICAgICAgICAgDQogICAgICAgICAgICAgICAgICAgICAgICAgIC AgICAgICAgICAgICAgICAgICAgICAgICAgICAgICAg ICAgICAgICAgICAgICAgICAgICAgICAgICAgICAgICAgICAgICAgICAgDQogICAgICAgICAgICAgICAg ICAgICAgICAgICAgICAgICAgICAgICAgICAgICAgICAgICAgICAgICAgICAgICAgICAgICAgICAgICAg ICAgICAgICAgICAgICAgICAgICAgICAgDQogICAgIC AgICAgICAgICAgICAgICAgICAgICAgICAgICAgICAgICAgICAgICAgICAgICAgICAgICAgICAgICAgIC AgICAgICAgICAgICAgICAgICAgICAgICAgICAgICAgICAgDQogICAgICAgICAgICAgICAgICAgICAgIC AgICAgICAgICAgICAgICAgICAgICAgICAgICAgICAg ICAgICAgICAgICAgICAgICAgICAgICAgICAgICAgICAgICAgICAgICAgICAgDQogICAgICAgICAgICAg ICAgICAgICAgICAgICAgICAgICAgICAgICAgICAgICAgICAgICAgICAgICAgICAgICAgICAgICAgICAg ICAgICAgICAgICAgICAgICAgICAgICAgICAgDQogIC AgICAgICAgICAgICAgICAgICAgICAgICAgICAgICAgICAgICAgICAgICAgICAgICAgICAgICAgICAgIC AgICAgICAgICAgICAgICAgICAgICAgICAgICAgICAgICAgICAgDQogICAgICAgICAgICAgICAgICAgIC AgICAgICAgICAgICAgICAgICAgICAgICAgICAgICAg UTRkKQBrEUXzGQOiGCHsTCTsAYMvVZPoHUEqZYXxYCSjUSPtGYWtJLPmWWWpWXWlHIj5V9scXWEfMXMu DK7kKGv5Ry1+HCpKYdDbPDY3bpReaF9CXD3tb7PdLMceHPJfd1TaGEz9YN6GDSNsMEqiKH3DZMfmaf1I ICWuQGOpcSKLn5tdGvUqDAT4LUKrLnagEI0GLCNqH8 hwmjWaTCZbBYYACXslKQFRALbqIZHGWRViYGDoLtQiCWzvSV9Tz2NyeJO1HJy+Xe7KFK4zk7TuNTvcBC XjHT5oce8JIFtIIzTrG5SmixI9IOD6BJSlQt9IVHOkGATitJVnDZKeKMTDCtWaR5ZhlE71SXPDKf3+DQ ydblZhZsqJZaS7LVBuw7XtZBm8KU8YALRfGNk5lJUq KCIkU8Fec2HdZb82AIVoHnigJyYeLgCkfNXSKJMlsWXkJMLSIMXyrPKgDQ2xGK2tPXHrPZFuFpZ3ZAOA GF6WCYHbSKQxrDByMIPiESBFSV6CMMcxTSY3ELZhtvEihWSiTPoyMA8YAZIwqtUtOkqpFUUXQYg+Pg0K AM5ic0LaHOniUQTbCP6nqj5UBRaPQhIcU1X3cZOfU7 D0VJryKu8DOZBdZOWbSgVtQRZUKWxlFY2QIY6mmaE2UT9FxHNfZCGnFJBrwTWsPDs1M73tcXNsRDpqPY 0KICA+Sobia+Hq1TCYLnAEWuWDReJqGoSAKKQmMeP4IlU2KOp6HwN5UxBZ56kMgmbsQmGMnmOO8SGP5sON KhNQLERU3HyWPhsU1opzUmTCBqKCXLKuPxJ54mhBCb ECIgOYT6SLAoPk1ELCMpH9NcujHsuXvfsmIpYVUwWXFXQZ6WCQitnbInlLRrsWulLW36aSyvBU7QHt4D TrZgQL8dak9EbCNqMw7KVTAuVD9NOFKnDJMzTLQgOVM2PUNtTnUhJFfwFMMwKHBkIWG4SECsTQFvTD7V CdQsUZFaKrghESRdGXYhAHJgma6KYXPlFIWbYXg1Rr WrUWHzXEReIGfdWVYhVVDmOVT9XVHeOGOqDG6LRkIuARHyWOMiQfZoKTGdPMGqvb6SWYFgZMWkPxV4UU WuOCZgHOLuJIieLEMtJNO3DfZnPYYiZEHhWN6NGcAcSWSwFUE6WBTpVPVeINJnsl9EWULcYLUjLJc4EF UpEKJtZMDkYAikPQAzJBS5MSK9PECnHQEvOB1ZPlGt UTJcGAA8BqphBCYsYGSsiu1WJFNaZMEnZAb1CZFvENJnNRAiTLkgDRPwESSbAlK3URVcMAHqAO6FBoPj KDBfMAT9FgXzYDGuVMJpfp4YVOSqFCScIrSdRYLwUTStVVReCLjoODQkSNDsTSv9HHDoFBGyNK0MBqZd FHClUSJoYjRzQGFrKUAbre8NTRDtNCUmVqT6AJRvMZ AqXQGsMCaoQNYjYGQ3JIo4VJPkMKDoSS6JTsGqJXFxQdXiANsuHJGkRXDyhc5CBARfEMBeCPAnUMBiSL VrAVCjJNguLNSpFYC7Ltl9INLaWBPbAD7CUkAwPWNaJgF5WvDmWIAoKEKjcy4PSHAiFPCyJji9TAAuHQ EtMJBeLIagSHQkPMQ3EXR0JBPxZWRzHF5YWrSgOPId NrneDePhAOBxOQXyiv8ABLRiSVCsEmHlOdAtAIEtMWKpKTzeZUSdOKD1SVa8YZEdKUVlRX1LKqAnUTOe HbcuXdTaZIDbJIXtvk6BWXWlAIAcRMPzAbJxZEVaGBLzFSx8wlTzpTSiYDh1WG1UZ2CqchBqMhTJSb8V a635CBDrTDYyAm7RL5qjPd3jXTQlZNTDJa4CNDp7Xj iwJxG2FXE4AKUuAXV2XUOmDMUeRZK5JBT6DaXgAJX+LJjvIRD9WHIpVAfyXUC6NiAuMZRbVeC7LPAvZv SnAcP0LU1nNACSHa0+WXujqGIwqCybRVPJPqK6AVTdSZnsHJOASf6L ID Date Data Source [id number] 04/21/2020 03:33:00 PM EST [facility] Name Value Range Interpretation Code Description Data Lashonda rce(s) Supporting Document(s) COVID-19 Result Normal (applies to non-numeric results) [facility] See scanned report ID Date Data Source [id number] 04/14/2020 12:00:00 AM EST [facility] Name Value Range Interpretation Code Description Data Lashonda rce(s) Supporting Document(s) SARS-CoV2 Rapid Antigen [facility] This lab [facility] and reported by [facility]. Procedure Social History Code Duration Value Status Description Data Source(s ) Alcohol intake 10/13/2020 12:00:00 AM EDT Current non-d kaylen of alcohol (finding) completed Current non-drinker of alcohol (finding) [facility] Tobacco use and exposure 10/13/2020 12:00:00 AM EDT Never used co mpleted Never used [facility] Smoking 10/13/2020 12:00:00 AM EDT Never smoker completed Never s moker [facility] Alcohol intake 08/15/2020 12:00:00 AM EST Current non-d kaylen of alcohol (finding) completed Current non-drinker of alcohol (finding) [facility] Alcohol intake 08/14/2020 12:00:00 AM EST Current non-d kaylen of alcohol (finding) completed Current non-drinker of alcohol (finding) [facility] Alcohol intake 08/07/2020 12:00:00 AM EST Current non-d kaylen of alcohol (finding) completed Current non-drinker of alcohol (finding) [facility] Smoking 05/04/2020 12:00:00 AM EST Never Smoker completed Never S moker eCW1 ([facility]) Smoking 05/04/2020 12:00:00 AM EST Never Smoker completed Never S moker eCW1 ([facility]) Alcohol intake 04/21/2020 12:00:00 AM EST Current non-d kaylen of alcohol (finding) completed Current non-drinker of alcohol (finding) [facility] Vital Signs ID Date Data Source UNK Name Value Range Interpretation Code Description Data Source(s) Systolic blood pressure 102 mm[Hg] 102 mm[Hg] M EDENT ([facility]) Diastolic blood pressure 61 mm[Hg] 61 mm[Hg] [facility] Heart rate 72 /min 72 /min [facility] ([facility]) Oxygen saturation in Arterial blood by Pulse oximetry 98 % 98 % [facility] ([facility]) Body weight 190.00 [lb_av] 190.00 [lb_av] MEDEN T ([facility]) Body weight 86.184 kg 86.184 kg [facility] ([facility]) Body height 64 [in_i] 64 [in_i] [facility] ([facility]) 5'4" Body mass index (BMI) [Ratio] 32.6 kg/m2 32.6 k g/m2 [facility] ([facility]) Body surface area Derived from formula 1.91 m2 1.91 m2 MEDENT ([facility]) Body temperature 97.7 [degF] 97.7 [degF] MEDENT ([facility]) Body height 64 [in_i] 64 [in_i] MEDENT ([facility]) 5'4" Body weight 197.12 [lb_av] 197.12 [lb_av] MEDEN T ([facility]) Body mass index (BMI) [Ratio] 33.8 kg/m2 33.8 k g/m2 [facility] ([facility]) Body weight 200.2 [lb_av] 200.2 [lb_av] eCW1 ([facility]) Body height 65 [in_i] 65 [in_i] eCW1 ([facility]) Body mass index (BMI) [Ratio] 33.31 kg/m2 33.31 kg/m2 W1 ([facility]) Heart rate 73 /min 73 /min eCW1 ([facility]) Respiratory rate 16 /min 16 /min eCW1 ([facility]) Body temperature 96.4 [degF] 96.4 [degF] eCW1 ( [facility]) Systolic blood pressure 120 mm[Hg] 120 mm[Hg] e CW1 ([facility]) Diastolic blood pressure 57 mm[Hg] 57 mm[Hg] eCW1 ([facility]) ID Date Data Source [id number] 08/21/2020 12:11:55 PM [facility] Name Value Range Interpretation Code Description Data Source(s) WEIGHT RECORDED 200 lb 200 lb [facility] ID Date Data Source [id number] 04/21/2020 11:09:28 AM [facility] Name Value Range Interpretation Code Description Data Source(s) WEIGHT RECORDED 175 lb 175 lb [facility] Body height Measured 65 in 65 in [facility] ID Date Data Source [id number] 03/04/2021 04:10:00 AM EDT Stacey [facility] Name Value Range Interpretation Code Description Data Source(s) Weight Measurement Method 8 8 [facility] Weight 240 240 [facility] Temperature Source 7 7 [facility] Temperature 97.8 97.8 [facility] Respiratory Effort 1 1 [facility] Respiratory Rate 16 16 [facility] Pulse Assessment Method 4 4 [facility] Pulse Rate 79 79 [facility] pital Blood Pressure 127/65 127/65 [facility] Weight Measurement Method 8 8 [facility] Weight 240 240 [facility] pital Temperature Source 7 7 [facility] Temperature 97.8 97.8 [facility] Respiratory Effort 1 1 [facility] Respiratory Rate 16 16 [facility] Pulse Assessment Method 4 4 [facility] Pulse Rate 74 74 [facility] pital Blood Pressure 127/65 127/65 [facility] Weight Measurement Method 8 8 [facility] Weight 240 240 [facility] pital Temperature Source 7 7 [facility] Temperature 97.8 97.8 [facility] Respiratory Effort 1 1 [facility] Respiratory Rate 14 14 [facility] Pulse Rate 84 84 [facility] pital Blood Pressure 142/74 142/74 [facility] ID Date Data Source [id number] 03/04/2021 04:10:00 AM EDT [facility] Name Value Range Interpretation Code Description Data Source(s) Weight Measurement Method 8 8 [facility] Weight 2528 2528 [facility] pital Temperature Source 7 7 [facility] Temperature 98 98 [facility] Respiratory Effort 1 1 [facility] Respiratory Rate 16 16 [facility] Pulse Assessment Method 4 4 [facility] Pulse Rate 57 57 [facility] pital Height 64 64 [facility] pital Blood Pressure 112/52 112/52 [facility] ID Date Data Source [id number] 03/04/2021 04:10:00 AM EDT [facility] Name Value Range Interpretation Code Description Data Source(s) Weight Measurement Method 8 8 [facility] Weight 2528 2528 [facility] pital Temperature Source 7 7 [facility] Temperature 97.5 97.5 [facility] Respiratory Effort 1 1 [facility] Respiratory Rate 16 16 [facility] Pulse Assessment Method 4 4 [facility] Pulse Rate 69 69 [facility] pital Height 64 64 [facility] pital Blood Pressure 116/78 116/78 [facility] ID Date Data Source [id number] 03/04/2021 04:10:00 AM EDT [facility] Name Value Range Interpretation Code Description Data Source(s) Weight Measurement Method 1 1 [facility] Weight 2336 2336 [facility] pital Temperature Source 7 7 [facility] Temperature 98.3 98.3 [facility] Respiratory Effort 1 1 [facility] Respiratory Rate 16 16 [facility] Pulse Assessment Method 4 4 [facility] Pulse Rate 96 96 [facility] pital Height 65 65 [facility] pital Blood Pressure 104/71 104/71 [facility] ID Date Data Source [id number] 03/04/2021 04:10:00 AM EDT [facility] Name Value Range Interpretation Code Description Data Source(s) Weight Measurement Method 8 8 [facility] Weight 2240 2240 [facility] pital Temperature Source 7 7 [facility] Temperature 98.2 98.2 [facility] Respiratory Effort 1 1 [facility] Respiratory Rate 14 14 [facility] Pulse Assessment Method 1 1 [facility] Pulse Rate 64 64 [facility] pital Height 65 65 [facility] pital Blood Pressure 101/56 101/56 [facility] ID Date Data Source [id number] 03/04/2021 04:10:00 AM EDT [facility] Name Value Range Interpretation Code Description Data Source(s) Weight Measurement Method 8 8 [facility] Weight 2240 2240 [facility] pital Temperature Source 7 7 [facility] Temperature 97.4 97.4 [facility] Respiratory Effort 1 1 [facility] Respiratory Rate 18 18 [facility] Pulse Assessment Method 4 4 [facility] Pulse Rate 60 60 [facility]ital Height 63 63 [facility] 111/76 111/76 [facility] ID Date Data Source [id number] 03/04/2021 04:10:00 AM EDT [facility] Name Value Range Interpretation Code Description Data Source(s) Weight Measurement Method 1 1 [facility] Weight 2192 2192 [facility] pital Temperature Source 7 7 [facility] Temperature 98 98 [facility] Respiratory Effort 1 1 [facility] Respiratory Rate 16 16 [facility] Pulse Assessment Method 4 4 [facility] Pulse Rate 67 67 [facility] pital Height 63.5 63.5 [facility] 100/54 100/54 [facility] Patient Treatment Plan of Care Planned Activity Planned Date Details Description Data Source (s) sennosides, CUSTODIAL 8.6 MG Oral Tablet 08/15/2020 12:00:00 AM [facility], CUSTODIAL 8.6 MG Oral Tablet 08/15/2020 12:00:00 AM [facility] Ondansetron 4 MG Oral Tablet 08/15/2020 12:00:00 AM [facility] Oxycodone Hydrochloride 5 MG Oral Tablet 08/15/2020 12:00:00 AM [facility] Magnesium Hydroxide 80 MG/ML Oral Suspension 08/14/2020 10:00:00 PM [facility] ondansetron (ZOFRAN) injection 4 mg 08/14/2020 02:32:44 PM [facility], CUSTODIAL 8.6 MG Oral Tablet 08/14/2020 02:32:43 PM [facility], CUSTODIAL 35.2 MG/ML Oral Solution 08/14/2020 02:32:43 PM [facility] Bisacodyl 10 MG Rectal Suppository 08/14/2020 02:32:42 PM [facility] Oxycodone Hydrochloride 5 MG Oral Tablet 08/14/2020 11:40:51 AM [facility] Ethinyl Estradiol 0.035 MG / norgestimate 0.25 MG Oral Tablet 06/16/2020 12:00:00 AM EST [facility] Methylphenidate HCl ER 36 MG Oral Tablet Extended Rele ase 24 Hour 02/25/2019 12:00:00 AM EDT [facility]
[2021-04-23 16:15] LABS: RSV AMPLIFICATION NEGATIVE (NEGATIVE)
[2021-04-23 16:45] VITALS: BP 135/64
== END 2021-04-23 16:46 | disposition home or self-care (01) ==
LOC: M ED 11:39
DX: R07.0 Pain in throat (principal); R09.81 Nasal congestion; Z88.0 Allergy status to penicillin; Z88.2 Allergy status to sulfonamides

== ENCOUNTER → 2022-01-27 | Outpatient (CLI) | payer BC ==
[~2022-01-27] MED LIST: FLON1SPR NARES; MAGICMW SSP; NAPR-837 PO; PSEU120T19 PO
== END ==
LOC: M PLALAB 08:50
PROVIDERS: ATTEND Surgery
DX: Z15.09 Genetic susceptibility to other malignant neoplasm (principal)

== ENCOUNTER 2022-04-12 08:33 | Emergency (ER) | payer BC ==
[~2022-04-12] VITALS: Ht 162.6 cm; Wt 95.3 kg
[~2022-04-12 08:33] MED LIST changes: +RALTEGRAVIR 400 MG TAB (ISENTRESS) PO SCH; +TRUVADA 200MG/300MG TABLET PO SCH
[2022-04-12 11:59] LABS: BASO % 0.1 % (0.0-1.0); EOS % 0.3 % (0.0-3.0); LYMPH # 2.3 10^3/uL (1.5-5.0); LYMPH % 29.6 % (24.0-44.0); MEAN CORPUSCULAR HEMOGLOBIN 29.6 pg (27.0-33.0); MEAN CORPUSCULAR HGB CONC 33.3 g/dl (32.0-36.5); MEAN CORPUSCULAR VOLUME 88.8 fl (80.0-96.0); MONO # 0.3 10^3/uL (0.0-0.8); MONO % 4.3 % (2.0-8.0); NEUTROPHILS % 65.4 % (36.0-66.0); PLATELET COUNT, AUTOMATED 263 10^3/uL (150-450); RED BLOOD COUNT 5.07 10^6/uL (4.00-5.40); WHITE BLOOD COUNT 7.7 10^3/uL (4.0-10.0)
[2022-04-12] MEDS ORDERED: BENZOIN TINCTURE 60ML BTL TOP ONE (12:35)
[2022-04-12 12:47] LABS: ALBUMIN 4.2 GM/DL (3.2-5.2); ALT/SGPT 42 U/L (12-78); BILIRUBIN,TOTAL 0.6 MG/DL (0.2-1.0); BLOOD UREA NITROGEN 12 MG/DL (7-18); CALCIUM LEVEL 9.6 MG/DL (8.5-10.1); CARBON DIOXIDE LEVEL 26 MEQ/L (21-32); CHLORIDE LEVEL 109 MEQ/L (98-107); CREATININE FOR GFR 0.76 MG/DL (0.55-1.30); GLOMERULAR FILTRATION RATE > 60.0 (>60); GLUCOSE, FASTING 96 MG/DL (70-100); POTASSIUM SERUM 4.3 MEQ/L (3.5-5.1); SODIUM LEVEL 142 MEQ/L (136-145); TOTAL PROTEIN 7.2 GM/DL (6.4-8.2)
[2022-04-12 13:14] LABS: HCG, SERUM QUALITATIVE NEGATIVE (NEGATIVE)
[2022-04-12 13:31] LABS: HEPATITIS B SURFACE ANTIBODY NEGATIVE (POSITIVE)
[2022-04-12] MEDS ORDERED: EXPOSURE KIT-ADULT 7 DAY SUPPLY PO ONE (13:35)
[2022-04-12 13:45] LABS: HEPATITIS B SURFACE ANTIGEN NEGATIVE (NEGATIVE)
[2022-04-12] MEDS ORDERED: TRUVADA 200MG/300MG TABLET PO ONE (13:45)
[2022-04-12] MEDS ORDERED: RALTEGRAVIR 400 MG TAB (ISENTRESS) PO ONE (13:45)
[2022-04-12] MEDS ORDERED: BOOSTRIX/ADACEL VACCINE (DIPHTH/PERTUSS/ACELL/TETANUS) 0.5ML SYR IM.IMMUN ONE (13:55)
[2022-04-12] MEDS ORDERED: ACETAMINOPHEN TAB 650MG DOSE (2X325MG) PO ONE (13:55)
[2022-04-12 14:14] LABS: HEPATITIS C VIRUS ABY INDEX < 0.0 INDEX (<0.8); HIV 1&2 SCREEN CENTAUR NEGATIVE (NEGATIVE)
[2022-04-12] MEDS ORDERED: HEPATITIS B IMMUNE GLOBULIN 5ML INJ IM.IMMUN ONE (14:30)
[2022-04-12] MEDS ORDERED: HEPATITIS B VACCINE 20MCG/ML 1ML SYRINGE (ADULT DOSE) IM.IMMUN ONE (14:30)
[2022-04-12] MEDS ORDERED: RALT40TA PO (14:35)
[2022-04-12] MEDS ORDERED: EMTR1TAB16 PO (14:35)
[2022-04-12 15:36] VITALS: BP 130/83
== END 2022-04-12 15:37 | disposition home or self-care (01) ==
LOC: M ED 08:33
DX: S61.412A Laceration without foreign body of left hand, initial encounter (principal); Z77.21 Contact with and (suspected) exposure to potentially hazardous body fluids; W26.8XXA Contact with other sharp object(s), not elsewhere classified, initial encounter; Y99.0 Civilian activity done for income or pay; Z88.0 Allergy status to penicillin; Z88.2 Allergy status to sulfonamides; Z79.899 Other long term (current) drug therapy

== ENCOUNTER 2023-09-27 12:23 | Emergency (ER) | payer BC ==
[~2023-09-27] VITALS: Ht 165.1 cm; Wt 100.4 kg
[~2023-09-27 12:23] MED LIST changes: +EMTR1TAB16 PO; +RALT40TA PO; -RALTEGRAVIR 400 MG TAB (ISENTRESS) PO SCH; -TRUVADA 200MG/300MG TABLET PO SCH
[2023-09-27] MEDS ORDERED: EPIN0.3I11 (12:29)
[2023-09-27 13:50] LABS: APPEARANCE, URINE HAZY (CLEAR); BACTERIA, URINE AUTO NEGATIVE (NEGATIVE); BILIRUBIN, URINE AUTO NEGATIVE (NEGATIVE); BLOOD, URINE BLOOD NEGATIVE (NEGATIVE); COLOR, URINE YELLOW (YELLOW); GLUCOSE, URINE (UA) AUTO NEGATIVE (NEGATIVE); KETONE, URINE AUTO NEGATIVE (NEGATIVE); LEUKOCYTE ESTERASE, URINE AUTO NEGATIVE (NEGATIVE); MUCUS, URINE SMALL (NEGATIVE); NITRITE, URINE AUTO NEGATIVE (NEGATIVE); PROTEIN, URINE AUTO NEGATIVE (NEGATIVE); RBC, URINE AUTO 1 /HPF (0-3); SQUAMOUS EPITHELIAL CELL UR AU 1 /HPF (0-6); WBC, URINE AUTO 1 /HPF (0-3)
[2023-09-27 15:10] LABS: Trichomonas vaginalis (AMP) NOT DETECTED (NEGATIVE)
[2023-09-27 15:34] LABS: GC DNA AMPLIFICATION NEGATIVE (NEGATIVE)
[2023-09-27 16:37] VITALS: BP 133/73; TEMP 98.3; O2SAT 100
== END 2023-09-27 16:41 | disposition home or self-care (01) ==
LOC: M ED 12:23
DX: O26.891 Other specified pregnancy related conditions, first trimester (principal); Z88.0 Allergy status to penicillin; Z88.2 Allergy status to sulfonamides

== ENCOUNTER → 2023-10-27 | Outpatient (REF) | payer BC ==
[~2023-10-27] MED LIST changes: +EPIN0.3I11
== END ==
LOC: M PLALAB 16:24
PROVIDERS: ATTEND Advanced Practice Midwife
DX: R10.2 Pelvic and perineal pain (principal); N94.10 Unspecified dyspareunia

== ENCOUNTER → 2023-12-01 | Outpatient (CLI) | payer BC ==
[2023-12-01 13:09] LABS: HEMATOCRIT 41.1 % (36.0-47.0); MEAN CORPUSCULAR HGB CONC 34.1 g/dl (32.0-36.5); PLATELET COUNT, AUTOMATED 210 10^3/uL (150-450); RED BLOOD COUNT 4.67 10^6/uL (4.00-5.40); WHITE BLOOD COUNT 9.2 10^3/uL (4.0-10.0)
[2023-12-01 14:14] LABS: HIV 1&2 SCREEN NEGATIVE (NEGATIVE)
[2023-12-01 14:23] LABS: HEPATITIS C VIRUS ABY INDEX < 0.02 INDEX (<0.8)
[2023-12-01 14:29] LABS: GC DNA AMPLIFICATION NEGATIVE (NEGATIVE)
== END ==
LOC: M PLALAB 11:30
PROVIDERS: ATTEND Advanced Practice Midwife
DX: O99.211 Obesity complicating pregnancy, first trimester (principal); E66.9 Obesity, unspecified; Z3A.00 Weeks of gestation of pregnancy not specified; N94.10 Unspecified dyspareunia; R10.2 Pelvic and perineal pain; O99.891 Other specified diseases and conditions complicating pregnancy; O26.891 Other specified pregnancy related conditions, first trimester

== ENCOUNTER → 2024-01-02 | Outpatient (CLI) | payer BC | LOC: M RAD 09:03 | PROVIDERS: ATTEND Advanced Practice Midwife | DX: O99.212 Obesity complicating pregnancy, second trimester (principal); E66.9 Obesity, unspecified; Z3A.19 19 weeks gestation of pregnancy ==

== ENCOUNTER 2024-01-10 10:34 | Outpatient (CLI) | payer BC ==
[~2024-01-10] VITALS: Ht 162.6 cm; Wt 101.0 kg
[2024-01-10] MEDS ORDERED: HOME MED LIST COMPLETE! XX SCH (12:00)
[2024-01-10 12:17] VITALS: BP 110/59
== END 2024-01-10 12:30 | disposition home or self-care (01) ==
LOC: M LDO 10:34
PROVIDERS: ATTEND Advanced Practice Midwife
DX: O46.92 Antepartum hemorrhage, unspecified, second trimester (principal); Z3A.20 20 weeks gestation of pregnancy; Z88.0 Allergy status to penicillin; Z88.2 Allergy status to sulfonamides
CPT/HCPCS: 59025; 76815; 76817; G0463

== ENCOUNTER → 2024-02-09 | Outpatient (CLI) | payer BC ==
[2024-02-09 15:27] LABS: HEMATOCRIT 36.1 % (36.0-47.0); HEMOGLOBIN 12.4 g/dl (12.0-15.5); MEAN CORPUSCULAR HEMOGLOBIN 30.4 pg (27.0-33.0); MEAN CORPUSCULAR HGB CONC 34.3 g/dl (32.0-36.5); MEAN CORPUSCULAR VOLUME 88.5 fl (80.0-96.0); PLATELET COUNT, AUTOMATED 214 10^3/uL (150-450); RED BLOOD COUNT 4.08 10^6/uL (4.00-5.40); WHITE BLOOD COUNT 10.6 10^3/uL (4.0-10.0)
== END ==
LOC: M PLALAB 12:26
PROVIDERS: ATTEND Obstetrics & Gynecology
DX: Z34.02 Encounter for supervision of normal first pregnancy, second trimester (principal)

== ENCOUNTER 2024-03-13 12:05 | Outpatient (CLI) | payer BC ==
[~2024-03-13] VITALS: Ht 162.6 cm; Wt 107.2 kg
[2024-03-13 12:23] VITALS: BP 122/67
[2024-03-13] MEDS ORDERED: PRENTAB9 PO (12:27)
[2024-03-13] MEDS ORDERED: HOME MED LIST COMPLETE! XX SCH (12:30)
== END 2024-03-13 13:27 | disposition home or self-care (01) ==
LOC: M LDO 12:05
PROVIDERS: ATTEND Advanced Practice Midwife
DX: O36.8130 Decreased fetal movements, third trimester, not applicable or unspecified (principal); O26.893 Other specified pregnancy related conditions, third trimester; O99.213 Obesity complicating pregnancy, third trimester; N89.8 Other specified noninflammatory disorders of vagina; M43.17 Spondylolisthesis, lumbosacral region; E66.09 Other obesity due to excess calories; Z88.0 Allergy status to penicillin; Z88.2 Allergy status to sulfonamides; Z91.030 Bee allergy status; Z3A.29 29 weeks gestation of pregnancy
CPT/HCPCS: 59025; G0463

== ENCOUNTER → 2024-04-16 | Outpatient (CLI) | payer BC ==
[~2024-04-16] MED LIST changes: +PRENTAB9 PO
== END ==
LOC: M WHC 11:28
PROVIDERS: ATTEND Advanced Practice Midwife
DX: O24.419 Gestational diabetes mellitus in pregnancy, unspecified control (principal); Z3A.34 34 weeks gestation of pregnancy

== ENCOUNTER → 2024-05-02 | Outpatient (REF) | payer BC ==
[~2024-05-02] MED LIST changes: +COLA100C5 PO
== END ==
LOC: M PLALAB 10:43
PROVIDERS: ATTEND Obstetrics & Gynecology
DX: Z36.85 Encounter for antenatal screening for Streptococcus B (principal); Z3A.36 36 weeks gestation of pregnancy

== ENCOUNTER 2024-05-04 13:49 | Outpatient (CLI) | payer BC ==
[~2024-05-04] VITALS: Ht 162.6 cm; Wt 111.0 kg
[~2024-05-04 13:49] MED LIST changes: -COLA100C5 PO
[2024-05-04 14:04] VITALS: BP 131/70
[2024-05-04] MEDS ORDERED: HOME MED LIST COMPLETE! XX SCH (14:55)
== END 2024-05-04 17:40 | disposition home or self-care (01) ==
LOC: M LDO 13:49
PROVIDERS: ATTEND Specialist
DX: O47.03 False labor before 37 completed weeks of gestation, third trimester (principal); O26.893 Other specified pregnancy related conditions, third trimester; O24.410 Gestational diabetes mellitus in pregnancy, diet controlled; O99.213 Obesity complicating pregnancy, third trimester; N89.8 Other specified noninflammatory disorders of vagina; E66.09 Other obesity due to excess calories; M43.17 Spondylolisthesis, lumbosacral region; Z3A.37 37 weeks gestation of pregnancy; Z88.0 Allergy status to penicillin; Z88.2 Allergy status to sulfonamides; Z91.030 Bee allergy status
CPT/HCPCS: 59025; 76815; G0463

== ENCOUNTER 2024-05-04 20:03 | Inpatient (IN) | payer BC ==
[~2024-05-04] VITALS: Ht 162.6 cm; Wt 111.1 kg
[2024-05-04] MEDS ORDERED: ONDANSETRON 4MG ORAL DISINTEGRATING TAB PO ONE (21:10)
[2024-05-04] MEDS: ONDANSETRON 4MG ORAL DISINTEGRATING TAB PO ONE (21:24)
[2024-05-04] MEDS: CYCLOBENZAPRINE 10MG TABLET PO PRN (23:04)
[2024-05-05] VITALS (10 sets, daily range): BP systolic 115–132; BP diastolic 56–77; TEMP 97.1; O2SAT 97–99
[2024-05-05] MEDS: PERCOCET 5MG/325MG TAB PO ONE (00:05)
[2024-05-05 01:51] LABS: HEMATOCRIT 33.6 % (36.0-47.0); HEMOGLOBIN 11.5 g/dl (12.0-15.5); MEAN CORPUSCULAR HEMOGLOBIN 29.7 pg (27.0-33.0); MEAN CORPUSCULAR HGB CONC 34.2 g/dl (32.0-36.5); MEAN CORPUSCULAR VOLUME 86.8 fl (80.0-96.0); PLATELET COUNT, AUTOMATED 223 10^3/uL (150-450); RED BLOOD COUNT 3.87 10^6/uL (4.00-5.40); WHITE BLOOD COUNT 11.1 10^3/uL (4.0-10.0)
[2024-05-05] MEDS: PROMETHAZINE 25MG/ML 1ML VIAL IV ONE (02:00)
[2024-05-05] MEDS: BUTORPHANOL 2 MG/ML 1ML VIAL IV ONE (02:01)
[2024-05-05] MEDS: ACETAMINOPHEN 325 MG TAB PO ONE (08:37)
[2024-05-05] MEDS: LACTATED RINGER'S 1000 ML IV STA (08:59)
[2024-05-05] MEDS ORDERED: LR 1,000 ML IV SCH (09:00)
[2024-05-05] MEDS: ceFAZolin SOD 2 GM in IV 1 EA IV ONE (11:00)
[2024-05-05] MEDS: BICITRA 30ML SOLN UDC PO ONE (11:00)
[2024-05-05] MEDS ORDERED: PHENYLephrine 500MCG 5ML (100MCG/ML) SYRINGE As Ordered ONE (11:04)
[2024-05-05] MEDS ORDERED: ONDANSETRON 4MG 2ML VIAL As Ordered ONE (11:04)
[2024-05-05] MEDS ORDERED: OXYTOCIN INJ 10UNITS/ML 1ML VIAL As Ordered ONE (11:04)
[2024-05-05] MEDS ORDERED: MORPHINE PRES-FREE INJ 10 MG/10 ML VIAL As Ordered ONE (11:04)
[2024-05-05] MEDS ORDERED: KETOROLAC 60MG 2ML VIAL As Ordered ONE (11:04)
[2024-05-05 12:02] LABS: CORD GAS HCO3 V 23.1 MMOL/L; CORD GAS PCO2 V 49.5 mmHg; CORD GAS PH V 7.287 UNITS; CORD GAS PO2 V 28.2 mmHg; CORD GAS SBC V 20.3 MMOL/L; CORD GAS TCO2 V 24.6 MMOL/L
[2024-05-05 12:03] LABS: CORD GAS ABE A -6.4; CORD GAS HCO3 A 23.8 MMOL/L; CORD GAS O2 SAT A 49.4 %; CORD GAS PCO2 A 67.2 mmHg; CORD GAS PH A 7.167 UNITS; CORD GAS PO2 A 25.8 mmHg; CORD GAS SBC A 18.2 MMOL/L; CORD GAS TCO2 A 25.9 MMOL/L
[2024-05-05] MEDS ORDERED: RHOGAM 300MCG (1500IU) INJ IM SCH (12:10)
[2024-05-05] MEDS ORDERED: ONDANSETRON 4MG 2ML VIAL IV PRN (12:10)
[2024-05-05] MEDS ORDERED: ePHEDrine SULFATE 25 MG/5 ML(5MG/ML) SYRINGE As Ordered ONE (12:16)
[2024-05-05] MEDS: SLF 3 ML SYR IV SCH (12:20)
[2024-05-05] MEDS ORDERED: diphenhydrAMINE 50MG/ML VIAL IV PRN (12:20)
[2024-05-05] MEDS ORDERED: **NOTE PATIENT COMMENT** MISC XX SCH (12:20)
[2024-05-05] MEDS ORDERED: NALOXONE INJ 0.4MG/1ML VIAL IV PRN (12:20)
[2024-05-05] MEDS ORDERED: METOCLOPRAMIDE INJ 10MG/2ML VIAL IV PRN (12:20)
[2024-05-05] MEDS ORDERED: MEPERIDINE 25 MG/ML 1ML VIAL IV PRN (12:20)
[2024-05-05] MEDS ORDERED: NALBUPHINE HCL 10 MG/ML 1ML AMP IV PRN (12:20)
[2024-05-05] MEDS ORDERED: oxyCODONE 5MG TAB As Ordered ONE (12:24)
[2024-05-05] MEDS: oxyCODONE 5MG TAB PO PRN (12:25)
[2024-05-05] MEDS ORDERED: OXYTOCIN 30UNITS IN 0.9% NaCl 500ML IV BAG As Ordered ONE (12:46)
[2024-05-05] MEDS: KETOROLAC 30 MG/ML 1ML VIAL IV SCH (18:01)
[2024-05-06] VITALS (7 sets, daily range): BP systolic 118–138; BP diastolic 56–77; O2SAT 97–100
[2024-05-06 06:44] LABS: HEMATOCRIT 28.8 % (36.0-47.0); HEMOGLOBIN 9.9 g/dl (12.0-15.5); MEAN CORPUSCULAR HEMOGLOBIN 30.6 pg (27.0-33.0); MEAN CORPUSCULAR HGB CONC 34.4 g/dl (32.0-36.5); MEAN CORPUSCULAR VOLUME 88.9 fl (80.0-96.0); PLATELET COUNT, AUTOMATED 164 10^3/uL (150-450); RED BLOOD COUNT 3.24 10^6/uL (4.00-5.40)
[2024-05-06] MEDS: SIMETHICONE 80MG CHEW TAB PO PRN (08:25)
[2024-05-06] MEDS: PRENATAL VITAMINS CHEWABLE TABLET PO SCH (08:25)
[2024-05-06] MEDS: DOCUSATE SODIUM 100MG CAPSULE PO PRN (08:25)
[2024-05-06] MEDS: PERCOCET 5MG/325MG TAB PO PRN ×2 (12:03→20:10)
[2024-05-06] MEDS: IBUPROFEN 800 MG TAB PO SCH (14:14)
[2024-05-07 02:21] VITALS: BP 114/59; O2SAT 99
[2024-05-07 05:42] VITALS: BP 124/60; O2SAT 98
[2024-05-07] MEDS: MEASLES,MUMPS,RUBELLA VACCINE INJ (MMR-II) SC.IMMUN ONE (09:00)
[2024-05-07 10:00] VITALS: BP 132/74; O2SAT 100
[2024-05-07] MEDS ORDERED: COLA100C5 PO (13:30)
[2024-05-07] MEDS: FLUZONE VACCINE TRIVALENT PF(2024-25) 0.5ML SYRINGE IM.IMMUN ONE (13:34)
== END 2024-05-07 14:05 | disposition home or self-care (01) | DRG 540 ==
LOC: M LDO 20:03 → M LDI 05-05 08:25 → M OBS 05-05 13:18
PROVIDERS: ADMIT Specialist; ATTEND Specialist
PROC: 10D00Z1 Extraction of Products of Conception, Low, Open Approach (ICD-10-PCS; principal; 2024-05-05 09:30)
DX: O99.892 Other specified diseases and conditions complicating childbirth (principal); O24.420 Gestational diabetes mellitus in childbirth, diet controlled; Z98.1 Arthrodesis status; Z3A.37 37 weeks gestation of pregnancy; Z88.0 Allergy status to penicillin; Z91.030 Bee allergy status; Z88.2 Allergy status to sulfonamides; Z37.0 Single live birth; O75.82 Onset (spontaneous) of labor after 37 completed weeks of gestation but before 39 completed weeks gestation, with delivery by (planned) cesarean section

== ENCOUNTER 2024-10-16 12:10 | Emergency (ER) | payer BC ==
[~2024-10-16] VITALS: Ht 165.1 cm; Wt 107.2 kg
[~2024-10-16 12:10] MED LIST changes: +COLA100C5 PO
[2024-10-16] MEDS ORDERED: EPIP0.3I2 IM (12:16)
[2024-10-16] MEDS ORDERED: MULTTAB20 PO (12:16)
[2024-10-16 16:10] VITALS: BP 125/76; TEMP 96.7; O2SAT 100
== END 2024-10-16 16:27 | disposition home or self-care (01) ==
LOC: M ED 12:10
DX: T63.441A Toxic effect of venom of bees, accidental (unintentional), initial encounter (principal); Z3A.01 Less than 8 weeks gestation of pregnancy; Z88.0 Allergy status to penicillin; Z88.2 Allergy status to sulfonamides; Z91.030 Bee allergy status

== ENCOUNTER 2025-01-22 12:01 | Emergency (ER) | payer BC ==
[~2025-01-22] VITALS: Ht 165.1 cm; Wt 101.7 kg
[~2025-01-22 12:01] MED LIST changes: +EPIP0.3I2 IM; +MULTTAB20 PO
[2025-01-22 12:04] VITALS: BP 126/65; TEMP 98; O2SAT 100
== END 2025-01-22 12:15 | disposition left against medical advice (07) ==
LOC: M ED 12:15
DX: Z53.21 Procedure and treatment not carried out due to patient leaving prior to being seen by health care provider (principal)

== ENCOUNTER → 2025-04-02 | Outpatient (CLI) | payer BC | LOC: M PLALAB 15:43 | PROVIDERS: ATTEND Advanced Practice Midwife | DX: N91.2 Amenorrhea, unspecified (principal) ==

== ENCOUNTER → 2025-06-09 | Outpatient (REF) | payer BC, OTHER | LOC: M PLALAB 10:18 | PROVIDERS: ATTEND Advanced Practice Midwife | DX: Z53.9 Procedure and treatment not carried out, unspecified reason (principal) ==